=== PATIENT | female | born 1950 | race Caucasian/White ===

== ENCOUNTER 2016-12-15 10:31 | Emergency (ER) | payer OTHER ==
[~2016-12-15] VITALS: Ht 149.9 cm; Wt 83.0 kg
[~2016-12-15 10:31] MED LIST: CALCTAB98 PO; ECHI167T PO; MSM750CA OR; POTA99TA12 PO; TAB-TAB PO; ZITH250T PO
[2016-12-15 10:39] VITALS: BP 155/78; PULSE 94; RESP 16; TEMP 98.4; O2SAT 96
[2016-12-15] MEDS ORDERED: FURO20TA PO (11:16)
[2016-12-15] MEDS ORDERED: METR250 PO (11:16)
--- NOTE | 2016-12-15 11:49 | RADHPO ---
EXAM DATE/TIME: 12/15/2016 11:34 [facility] COMPARISON: No previous studies available for comparison. INDICATIONS : Cough and right side rib pain MEDICAL HISTORY : None. SURGICAL HISTORY : None. ENCOUNTER: Initial ACUITY: 3 weeks PAIN SCORE: 10/10 LOCATION: Right anterior lateral ribs FINDINGS: The cardiac silhouette is enlarged in transverse diameter. The lungs are free of acute parenchymal op acity. No effusions are identified. Osseous structures are intact. CONCLUSION: Cardiomegaly. No acute cardiopulmonary disease. Tanner Steele MD on December 15, 2016 at 11:48 Board Certified Radiologist. This report was verified electronically.
--- NOTE | 2016-12-15 11:52 | PD ---
HPI Chief Complaint: Musculoskeletal Complaint Time Seen by Provider: 11:15 Travel History International Travel<30 days: No Contact w/Intl Traveler<30days: No Traveled to known affect area: No History of Present Illness HPI Patient is a 66-year-old female who presents emergency department for evaluation of right rib pain. Patient states she's been coughing for a few weeks, last night she coughed and had increased pain in the right anterior ribs. She reports a history of chronic bronchitis, she uses a an albuterol inhaler as needed. She is not on any inhaled steroids. She denies any fevers or chills, nausea, vomiting, chest pain, shortness of breath. She states the cough has gotten better but due to the pain she presented to the emergency for evaluation. Patient states the pain was a 7 out of 10 last night but feels somewhat better today. PFSH Past Medical History Arthritis: Yes Asthma: Yes (chronic bronchitis) Cardiovascular Problems: No Diabetes: Yes (STATES UNDER CONTROL) Patient Takes Glucophage: No Diminished Hearing: No Genitourinary: No Hepatitis: Yes (hepatitis C/cirrhosis) Reproductive: No Menopausal: Yes Social History Alcohol Use: No (DENIES) Tobacco Use: No (FORMER) Substance Use: No Allergies-Medications (Allergen,Severity, Reaction): Coded Allergies: No Known Allergies (Verified , 12/15/16) Reported Meds & Prescriptions Reported Meds & Active Scripts Active Reported Flagyl (Metronidazole) 250 Mg Tab 250 Mg PO TID Furosemide 20 Mg Tab 20 Mg PO DAILY Review of Systems Except as stated in HPI: all other systems reviewed are Neg General / Constitutional: No: Fever, Chills Cardiovascular: No: Chest Pain or Discomfort, Dyspnea on exertion Respiratory: Positive: Cough (improving), Pleuritic Pain, No: Shortness of Breath, Wheezing, Orthopnea Gastrointestinal: No: Abdominal Pain Physical Exam Narrative GENERAL: Obese, well-developed, alert elderly female. Resting comfortably in no acute distress. SKIN: Warm and dry. HEAD: Atraumatic. Normocephalic. EYES: Pupils equal and round. No scleral icterus. No injection or drainage. ENT: No nasal bleeding or discharge. Mucous membranes pink and moist. NECK: Trachea midline. No JVD. CARDIOVASCULAR: Regular rate and rhythm. No murmur appreciated. RESPIRATORY: No accessory muscle use. Clear to auscultation. Breath sounds equal bilaterally. GASTROINTESTINAL: Abdomen obese, soft, non-tender, nondistended. Hepatic and splenic margins not palpable. MUSCULOSKELETAL: No obvious deformities. No clubbing. No cyanosis. No edema. Mild tenderness to palpation on right anterior ribs, no crepitus noted to palpation. NEUROLOGICAL: Awake and alert. No obvious cranial nerve deficits. Motor grossly within normal limits. Normal speech. PSYCHIATRIC: Appropriate mood and affect; insight and judgment normal. Data Data Last Documented VS Vital Signs Date Time Temp Pulse Resp B/P Pulse Ox O2 Delivery O2 Flow Rate FiO2 12/15/16 10:39 98.4 94 16 155/78 96 Orders Chest, Pa & Lat (12/15/16 ) [facility] Medical Decision Making Medical Screen Exam Complete: Yes Emergency Medical Condition: Yes Interpretation(s) Vital Signs Date Time Temp Pulse Resp B/P Pulse Ox O2 Delivery O2 Flow Rate FiO2 12/15/16 10:39 98.4 94 16 155/78 96 Differential Diagnosis Fracture versus costochondritis versus muscle strain versus pneumonia versus other Narrative Course Patient is a 66-year-old female, former smoker who presents emergency for evaluation of right rib pain after a coughing spell last night. Patient reports the cough has gotten better. Patient's vital signs are stable, is well oxygenated on room air and afebrile. Chest x-ray ordered and pending. Chest x-ray is negative for acute cardiopulmonary disease, osseous structures are intact. Patient will be given a short course of pain medication. She states that she is unable to take ibuprofen/Aleve due to GI issues. She is also advised by her GI doctor to only take acetaminophen twice daily. She is encouraged to take acetaminophen as directed by her GI doctor for pain, she was given the pain medication for breakthrough pain. She is encouraged to try alternate heat and ice to affected area. She is encouraged to continue deep breathing. Patient was encouraged to follow-up with her primary doctor or return to emergency department for any new or worsening symptoms. Patient verbalized understanding of these instructions. Patient is stable for discharge. Diagnosis Primary Impression: Rib pain on right side Referrals: Primary Care Physician Patient Instructions: General Instructions Additional Instructions: Follow-up with your primary doctor Alternate heat and ice to affected area Take acetaminophen as needed and as directed by your GI doctor for pain You may take the tramadol for breakthrough pain, do not drive or operate heavy machinery while taking narcotic pain medications Return to emergency department for any new or worsening symptoms Med/Other Pt SpecificInfo: Prescription(s) given Scripts Tramadol 50 Mg Tab50 Mg PO Q6H PRN (PAIN) #10 TAB Ref 0 Prov:Roberto Carlos Queen MD 12/15/16 Disposition: 01 DISCHARGE HOME Condition: Stable JasonAlyssaZaramraj DOMINGO Dec 15, 2016 11:52
[2016-12-15] MEDS ORDERED: TRAM50TA PO (11:53)
== END 2016-12-15 12:26 | disposition home or self-care (01) ==
LOC: PHEFT 10:31
DX: R07.81 Pleurodynia (principal); R05 Cough; J45.909 Unspecified asthma, uncomplicated; E11.9 Type 2 diabetes mellitus without complications
CPT/HCPCS: 71020; 99283

== ENCOUNTER 2016-12-17 09:39 | Inpatient (IN) | payer OTHER, MEDICARE ==
[2016-12-17] VITALS (10 sets, daily range): BP systolic 140–173; BP diastolic 69–81; PULSE 90–107; RESP 16–20; TEMP 98–99.5; O2SAT 92–98
[~2016-12-17] VITALS: Ht 149.9 cm; Wt 84.8 kg
[~2016-12-17 09:39] MED LIST changes: -CALCTAB98 PO; -ECHI167T PO; +FURO20TA PO; +METR250 PO; -MSM750CA OR; -POTA99TA12 PO; -TAB-TAB PO; +TRAM50TA PO; -ZITH250T PO
[2016-12-17] MEDS ORDERED: SODIUM CHLOR 0.9% 1000 ML INJ 1,000 ML IV SCH (11:35)
--- NOTE | 2016-12-17 11:43 | PD ---
HPI Chief Complaint: Abdominal Pain Time Seen by Provider: 11:39 Travel History International Travel<30 days: No Contact w/Intl Traveler<30days: No Traveled to known affect area: No History of Present Illness HPI Patient comes in complaining of abdominal pain that began around 4:00 this morning. Patient states she noted that her abdomen was distended and firm. Patient has since noted improved however she still continues to have pain in her epigastric region. Patient has a history of cirrhosis as well as gallbladder issues but was told by her GI that she did not need her gallbladder out and had bacteria somewhere in her stomach and was prescribed Flagyl. Patient reports the last dose of Flagyl's today. Patient denies any fevers, nausea, vomiting, chest pain, or shortness of breath. PFSH Past Medical History Arthritis: Yes Asthma: Yes Cardiovascular Problems: No Diabetes: Yes Patient Takes Glucophage: No Diminished Hearing: No Genitourinary: No Hepatitis: Yes (hepatitis C/cirrhosis) Reproductive: No Respiratory: Yes (PLEURISY, ASTHMA, CHRONIC BRONCHITIS ) Tetanus Vaccination: > 5 Years Influenza Vaccination: No ?: Not Menopausal: Yes Past Surgical History Surgical History: No Previous Surgery Social History Alcohol Use: No Tobacco Use: No Substance Use: No Allergies-Medications (Allergen,Severity, Reaction): Coded Allergies: Shellfish (Verified Allergy, Intermediate, HIVES, 12/17/16) Reported Meds & Prescriptions Reported Meds & Active Scripts Active Reported Feosol (Ferrous Sulfate) 65 Mg Tab 65 Mg PO DAILY Potassium 99 Mg Tab 99 Mg PO DAILY Magnesium 250 Mg Tab 250 Mg PO BID Echinacea Unknown Strength Tab 2 Tab PO BID Glucosamine Chondroitin (Mevsosddiui-Gojycvnroqk-Njd C-) 1 Tab Tab 2 Tab PO DAILY Calcium Unknown Strength Tab 1 Tab PO BID Flagyl (Metronidazole) 250 Mg Tab 250 Mg PO TID Furosemide 20 Mg Tab 20 Mg PO DAILY Review of Systems Except as stated in HPI: all other systems reviewed are Neg Physical Exam Narrative GENERAL: Well-developed, overly nourished, in no acute distress, and non-ill appearing. SKIN: Warm and dry. HEAD: Atraumatic. Normocephalic. EYES: Pupils equal and round. EOMI. No scleral icterus. No injection or drainage. ENT: No nasal bleeding or discharge. Mucous membranes pink and moist. NECK: Trachea midline. No JVD. Supple. No nuclear rigidity. CARDIOVASCULAR: Regular rate and rhythm. No murmur appreciated. RESPIRATORY: No accessory muscle use. No respiratory distress. Clear to auscultation. Breath sounds equal bilaterally. GASTROINTESTINAL: Abdomen soft, tenderness epigastric, distended. Hepatic and splenic margins not palpable. Normal bowel sounds 4. No pulsatile mass. MUSCULOSKELETAL: No obvious deformities. No clubbing. No cyanosis. No edema. Full range of motion. NEUROLOGICAL: Awake and alert. No obvious cranial nerve deficits. Motor grossly within normal limits. Normal speech. PSYCHIATRIC: Appropriate mood and affect; insight and judgment normal. Data Data Last Documented VS Vital Signs Date Time Temp Pulse Resp B/P Pulse Ox O2 Delivery O2 Flow Rate FiO2 12/17/16 14:00 92 17 140/81 98 Room Air 12/17/16 09:41 98.0 Orders Complete Blood Count With Diff (12/17/16 11:35) Comprehensive Metabolic Panel (12/17/16 11:35) Lipase (12/17/16 11:35) Prothrombin Time / Inr (Pt) (12/17/16 11:35) Act Partial Throm Time (Ptt) (12/17/16 11:35) Urinalysis - C+S If Indicated (12/17/16 11:35) Iv Access Insert/Monitor (12/17/16 11:35) Ecg Monitoring (12/17/16 11:35) Oximetry (12/17/16 11:35) Ondansetron Inj (Zofran Inj) (12/17/16 11:45) Sodium Chlor 0.9% 1000 Ml Inj (Ns 1000 M (12/17/16 11:35) Sodium Chloride 0.9% Flush (Ns Flush) (12/17/16 11:45) Electrocardiogram (12/17/16 11:35) Ct Abd/Pel W Iv Contrast(Rout) (12/17/16 11:48) Morphine Inj (Morphine Inj) (12/17/16 12:00) Iohexol 350 Inj (Omnipaque 350 Inj) (12/17/16 13:27) Piperacil-Tazo 3.375 Gm Premix (Zosyn 3. (12/17/16 14:45) Admit Order (Ed Use Only) (12/17/16 15:29) Labs Laboratory Tests Test 12/17/16 11:40 White Blood Count 7.7 TH/MM3 Red Blood Count 4.41 MIL/MM3 Hemoglobin 12.6 GM/DL Hematocrit 39.1 % Mean Corpuscular Volume 88.6 FL Mean Corpuscular Hemoglobin 28.6 PG Mean Corpuscular Hemoglobin 32.3 % Concent Red Cell Distribution Width 16.4 % Platelet Count 110 TH/MM3 Mean Platelet Volume 12.5 FL Neutrophils (%) (Auto) 83.2 % Lymphocytes (%) (Auto) 6.1 % Monocytes (%) (Auto) 8.5 % Eosinophils (%) (Auto) 0.8 % Basophils (%) (Auto) 1.4 % Neutrophils # (Auto) 6.4 TH/MM3 Lymphocytes # (Auto) 0.5 TH/MM3 Monocytes # (Auto) 0.7 TH/MM3 Eosinophils # (Auto) 0.1 TH/MM3 Basophils # (Auto) 0.1 TH/MM3 CBC Comment AUTO DIFF Differential Comment AUTO DIFF CONFIRMED Platelet Estimate LOW Platelet Morphology Comment ENLARGED Tear Drop Cells 1+ Ovalocytes 1+ Prothrombin Time 13.5 SEC Prothromb Time International 1.2 RATIO Ratio Activated Partial 31.5 SEC Thromboplast Time Urine Color Kelly Urine Turbidity CLEAR Urine pH 5.5 Urine Specific [place] 1.029 Urine Protein 30 mg/dL Urine Glucose (UA) 100 mg/dL Urine Ketones 15 mg/dL Urine Occult Blood NEG Urine Nitrite NEG Urine Bilirubin SMALL Urine Urobilinogen 0.2 MG/DL Urine Leukocyte Esterase NEG Urine Bacteria RARE /hpf Microscopic Urinalysis Comment CULT NOT INDICATED Sodium Level 139 MEQ/L Potassium Level 4.6 MEQ/L Chloride Level 106 MEQ/L Carbon Dioxide Level 23.7 MEQ/L Anion Gap 9 MEQ/L Blood Urea Nitrogen 16 MG/DL Creatinine 0.58 MG/DL Estimat Glomerular Filtration 104 ML/MIN Rate Random Glucose 117 MG/DL Calcium Level 9.8 MG/DL Total Bilirubin 0.8 MG/DL Aspartate Amino Transf 344 U/L (AST/SGOT) Alanine Aminotransferase 61 U/L (ALT/SGPT) Alkaline Phosphatase 173 U/L Total Protein 6.8 GM/DL Albumin 2.9 GM/DL Lipase 126 U/L [facility] Medical Decision Making Medical Screen Exam Complete: Yes Emergency Medical Condition: Yes Interpretation(s) EKG reviewed by Dr. Brian, shows sinus rhythm ventricular rate 92. No STEMI. Differential Diagnosis Diverticulitis, pancreatitis, appendicitis, small bowel obstruction, gastroparesis, constipation, obstipation, other Narrative Course Patient was seen and examined. Initial laboratory and radiological studies were ordered. Discussed patient with Dr. Brian, who saw and evaluated the patient and recommends having patient admitted for concern over possible SBP. All findings plan care was discussed with patient by Dr. Brian. Patient is agreeable for admission. All questions were answered. Physician Communication Physician Communication [address] Black, who wants to wait GIs input prior to accepting admission. [address] Espino GI who is on-call for patient's auto roller, who recommended unless there is concerns for SBP patient can be evaluated further as an outpatient. [address] Black again, who is agreeable to admit patient. Diagnosis Primary Impression: SBP (spontaneous bacterial peritonitis) Additional Impressions: Hepatocellular carcinoma Portal vein thrombosis Admitting Information Admitting Physician Requests: Observation Condition: Stable Canelo Mei Dec 17, 2016 11:43
[2016-12-17] MEDS ORDERED: SODIUM CHLORIDE 0.9% FLUSH 5 ML FLUSH IVF PRN (11:45)
[2016-12-17] MEDS ORDERED: ONDANSETRON HCL 4 MG/2 ML VIAL IVP ONE (11:45)
[2016-12-17 11:56] LABS: AUTOMATED NEUTROPHIL # 6.4 TH/MM3 (1.8-7.7); BASOPHIL # 0.1 TH/MM3 (0-0.2); BASOPHIL % 1.4 % (0.0-2.0); EOSINOPHIL # 0.1 TH/MM3 (0-0.4); EOSINOPHIL % 0.8 % (0.0-4.0); HEMATOCRIT 39.1 % (35.0-46.0); LYMPH % 6.1 % (9.0-44.0); LYMPHOCYTE # 0.5 TH/MM3 (1.0-4.8); MEAN CELL VOLUME 88.6 FL (80.0-100.0); MEAN CORPUSCULAR HEMOGLOBIN 28.6 PG (27.0-34.0); MEAN CORPUSCULAR HGB CONC 32.3 % (32.0-36.0); MONO % 8.5 % (0.0-8.0); NEUT % 83.2 % (16.0-70.0); PLATELET COUNT 110 TH/MM3 (150-450); RED BLOOD COUNT 4.41 MIL/MM3 (4.00-5.30); RED CELL DISTRIBUTION WIDTH 16.4 % (11.6-17.2); WHITE BLOOD COUNT 7.7 TH/MM3 (4.0-11.0)
[2016-12-17] MEDS ORDERED: MORPHINE SULFATE 4 MG/ML INJ IV PUSH ONE (12:00)
[2016-12-17 12:02] LABS: HEMO FLAGS AUTO DIFF
[2016-12-17 12:09] LABS: PROTHROMBIN TIME - PATIENT 13.5 SEC (9.8-11.6)
[2016-12-17 12:11] LABS: APTT (PATIENT) 31.5 SEC (24.3-30.1); INTERNATIONAL NORMALIZED RATIO 1.2 RATIO
[2016-12-17 12:15] LABS: BLOOD, URINE NEG (NEG); GLUCOSE,URINE 100 mg/dL (NEG); KETONE, URINE 15 mg/dL (NEG); NITRITE,URINE NEG (NEG); PH, URINE 5.5 (5.0-8.5); URINE COLOR Amber (YELLW/STRAW)
[2016-12-17 12:23] LABS: BACTERIA, URINE RARE /hpf; COMMENT (UR) CULT NOT INDICATED; CULTURE IF INDICATED CULT NOT INDICATED
[2016-12-17] MEDS ORDERED: GLUCTAB6 PO (12:23)
[2016-12-17] MEDS ORDERED: ECHI125T PO (12:23)
[2016-12-17] MEDS ORDERED: MAGN250T2 PO (12:23)
[2016-12-17] MEDS ORDERED: POTA99TA PO (12:23)
[2016-12-17] MEDS ORDERED: CALC500T42 PO (12:23)
[2016-12-17] MEDS ORDERED: FERR65TA PO (12:23)
[2016-12-17 12:26] LABS: ALT (GPT) 61 U/L (10-53); ANION GAP 9 MEQ/L (5-15); AST (GOT) 344 U/L (15-37); BICARBONATE 23.7 MEQ/L (21.0-32.0); BLOOD UREA NITROGEN 16 MG/DL (7-18); CHLORIDE 106 MEQ/L (98-107); GLOMERULAR FILTRATION RATE 104 ML/MIN (>89); SODIUM (NA) 139 MEQ/L (136-145)
[2016-12-17 12:28] LABS: ALKALINE PHOSPHATASE 173 U/L (45-117); POTASSIUM 4.6 MEQ/L (3.5-5.1); TOTAL BILIRUBIN ADULT 0.8 MG/DL (0.2-1.0)
[2016-12-17 12:49] LABS: OVALOCYTES 1+ (NORMAL)
[2016-12-17 12:50] LABS: PLATELET ESTIMATE SMEAR LOW (NORMAL); PLATELET MORPHOLOGY ENLARGED (NORMAL); SCAN/DIFF AUTO DIFF CONFIRMED; TEARDROP RBCS 1+ (NORMAL)
[2016-12-17] MEDS ORDERED: IOHEXOL 350 MG/ML 10 ML VIAL (for RAD DIAG) IV ONE (13:27)
--- NOTE | 2016-12-17 14:19 | RADRPT ---
EXAM DATE/TIME: 12/17/2016 13:20 [facility] COMPARISON: No previous studies available for comparison. INDICATIONS : Diffuse abdomen pain. IV CONTRAST: 86 cc Omnipaque 350 (iohexol) IV ORAL CONTRAST: No oral contrast ingested. RADIATION DOSE: 22.35 CTDIvol (mGy) MEDICAL HISTORY : Diabetes mellitus type 2. Hepatitis C. Cirrhosis. SURGICAL HISTORY : None. ENCOUNTER: Initial ACUITY: 1 day PAIN SCALE: 5/10 LOCATION: abdomen TECHNIQUE: Volumetric scanning of the abdomen and pelvis was performed. Using automated exposure control and ad justment of the mA and/or kV according to patient size, radiation dose was kept as low as reasonably achievable to obtain optimal diagnostic quality images. FINDINGS: LOWER LUNGS: There are innumerable small nodules at the lung bases bilaterally. LIVER: Liver is enlarged and nodular indicating cirrhosis. It enhances and heterogeneously particularly in t he right lobe. There is thrombus within the right portal vein and anterior and posterior branches. Th ere is an exophytic mass arising from the right lobe of the liver measuring 6.0 x 3.6 cm. Calcified s tone is present within the gallbladder. SPLEEN: The spleen is enlarged. PANCREAS: Within normal limits. KIDNEYS: Normal in size and shape. There is no mass, stone or hydronephrosis. ADRENAL GLANDS: Right adrenal gland is not visualized. VASCULAR: There is no aortic aneurysm. There is mild atherosclerotic disease. Paraesophageal varices are presen t. BOWEL/MESENTERY: The stomach, small bowel, and colon demonstrate no acute abnormality. There is no free intraperitone al air. There is a moderate volume of free fluid in the abdomen and pelvis. ABDOMINAL WALL: Within normal limits. RETROPERITONEUM: There is no lymphadenopathy. BLADDER: No wall thickening or mass. REPRODUCTIVE: There is a 2 cm hypodense mass in the left uterine fundus. INGUINAL: There is no lymphadenopathy or hernia. MUSCULOSKELETAL: No lytic or blastic lesion is seen. There are degenerative changes of the spine. CONCLUSION: 1. Cirrhotic liver with right lobe liver mass suspicious for hepatocellular carcinoma. There is diffu se heterogeneous enhancement of the right lobe with thrombus in the right portal vein.2. There are in numerable pulmonary nodules in the lung bases suspicious for metastatic disease. 3. Moderate volume of the free fluid in the abdomen and pelvis. Other findings suggesting portal hype rtension including splenomegaly and esophageal varices. 4. Nonacute findings include cholelithiasis and 2 cm left uterine mass likely representing a leiomyom a. Rahul Gan MD on December 17, 2016 at 14:10 Board Certified Radiologist. This report was verified electronically.
[2016-12-17] MEDS ORDERED: PIPERACIL-TAZO 3.375 GM PREMIX 50 ML IV ONE (14:45)
[2016-12-17] MEDS ORDERED: DEXTROSE 50% IN WATER 50 ML VIAL(D50) IV PUSH PRN (16:15)
[2016-12-17] MEDS ORDERED: GLUCAGON 1 MG/ML VIAL OTHER PRN (16:15)
[2016-12-17] MEDS ORDERED: BISACODYL 10 MG SUPP PR PRN (16:15)
[2016-12-17] MEDS ORDERED: traMADol HCL 50 MG TAB PO PRN (16:15)
[2016-12-17] MEDS ORDERED: SENNOSIDES 8.6 MG TAB PO PRN (16:15)
[2016-12-17] MEDS ORDERED: MORPHINE SULFATE 4 MG/ML INJ IV PRN (16:15)
[2016-12-17] MEDS ORDERED: NALOXONE HCL 0.4 MG/ML AMP IV PRN (16:15)
[2016-12-17] MEDS ORDERED: ONDANSETRON HCL 4 MG/2 ML VIAL IVP PRN (16:15)
[2016-12-17] MEDS ORDERED: SODIUM CHLORIDE 0.9% FLUSH 5 ML FLUSH FLUSH PRN (16:15)
[2016-12-17] MEDS ORDERED: MAGNESIUM HYDROXIDE SUSP 30 ML CUP PO PRN (16:15)
--- NOTE | 2016-12-17 16:22 | HHI.HP ---
[facility] Geovanni Munoz M.D. Admission Diagnosis abdominal pain, ascites Diagnoses: Chief Complaint: Abdominal pain Travel History International Travel<30 Days: No Contact w/Intl Traveler <30 Da: No Traveled to Known Affected Are: No History of Present Illness 66-year-old female with a past medical history of hepatitis C, cirrhosis, thrombocytopenia who presented for abdominal pain. The patient states that she was woken up this morning with severe abdominal pain. She states that she's been having right-sided abdominal discomfort, worse in the right lower quadrant for the past 3 or 4 weeks. Today the pain was worse in the midepigastric region. He states that she saw her PCP, had a liver sonogram done, which showed cholelithiasis, which is chronic for the patient. She followed up with her longitudinal float operator, who started her on Flagyl for possible infection, started last Sunday. She's been having associated gas, distention, nausea, diarrhea. Had 10 episodes of loose stools earlier today. She denies any vomiting. Has been having decreased oral intake as food seems to make the pain worse, has been trying a bland diet. She denies any fevers or chills. Her abdominal pain has been intermittent, and currently is resolved. Her longitudinal float operator is Dr. Youngblood. She follows with Dr. Ogden for thrombocytopenia. The patient had new liver mass found in the ED. Gastroenterology was consulted, and recommended admission if concern for SBP, and thus the patient was admitted to medicine. Review of Systems Other 10 point review of systems performed and was negative except as stated in the history of present illness Past Family Social History Past Medical History Hepatitis C, cirrhosis, thrombocytopenia History of diabetes mellitus, patient denies any currently History arthritis Asthma Migraines Chronic bronchitis Past Surgical History None Reported Medications Feosol (Ferrous Sulfate) 65 Mg Tab 65 Mg PO DAILY Potassium 99 Mg Tab 99 Mg PO DAILY Magnesium 250 Mg Tab 250 Mg PO BID Echinacea Unknown Strength Tab 2 Tab PO BID Glucosamine Chondroitin (Kobwaofzure-Stoaiduttni-Vtp C-) 1 Tab Tab 2 Tab PO DAILY Calcium Unknown Strength Tab 1 Tab PO BID Flagyl (Metronidazole) 250 Mg Tab 250 Mg PO TID Furosemide 20 Mg Tab 20 Mg PO DAILY Allergies: Coded Allergies: Shellfish (Verified Allergy, Intermediate, HIVES, 12/17/16) Active Ordered Medications Current Medications Medications (Trade) Dose Ordered Sig/Jason Route Start Time Stop Time Status Last Admin (NS Flush) 2 ml UNSCH PRN IVF 12/17/16 11:45 Family History Sr. of kidney cancer Social History Former alcohol abuse, none currently Former tobacco use Physical Exam Vital Signs Vital Signs Date Time Temp Pulse Resp B/P Pulse Ox O2 Delivery O2 Flow Rate FiO2 12/17/16 14:00 92 17 140/81 98 Room Air 12/17/16 12:09 97 Room Air 12/17/16 12:00 90 17 147/73 96 Room Air 12/17/16 11:31 95 20 148/74 98 Room Air 12/17/16 09:41 98.0 107 17 173/79 95 Physical Exam GENERAL: Well-developed well-nourished. In no acute distress. SKIN: Warm and dry. No lesions noted. HEENT: Normocephalic. Pupils equal and round. Mucous membranes pink and moist. CARDIOVASCULAR: Regular rate and rhythm. Soft systolic murmur appreciated at the LSB. RESPIRATORY: No accessory muscle use. Clear to auscultation. Breath sounds equal bilaterally. GASTROINTESTINAL: Abdomen soft, non-tender, nondistended. Bowel sounds x4. MUSCULOSKELETAL: No obvious deformities. No clubbing or cyanosis. Trace edema. NEUROLOGICAL: Awake and alert. No focal neurological deficits. Moves upper and lower extremities spontaneously. Normal speech. PSYCHIATRIC: Appropriate mood and affect; insight and judgment normal. Laboratory Laboratory Tests Test 12/17/16 11:40 White Blood Count 7.7 Red Blood Count 4.41 Hemoglobin 12.6 Hematocrit 39.1 Mean Corpuscular Volume 88.6 Mean Corpuscular Hemoglobin 28.6 Mean Corpuscular Hemoglobin 32.3 Concent Red Cell Distribution Width 16.4 Platelet Count 110 Mean Platelet Volume 12.5 Neutrophils (%) (Auto) 83.2 Lymphocytes (%) (Auto) 6.1 Monocytes (%) (Auto) 8.5 Eosinophils (%) (Auto) 0.8 Basophils (%) (Auto) 1.4 Neutrophils # (Auto) 6.4 Lymphocytes # (Auto) 0.5 Monocytes # (Auto) 0.7 Eosinophils # (Auto) 0.1 Basophils # (Auto) 0.1 CBC Comment AUTO DIFF Differential Comment AUTO DIFF CONFIRMED Platelet Estimate LOW Platelet Morphology Comment ENLARGED Tear Drop Cells 1+ Ovalocytes 1+ Prothrombin Time 13.5 Prothromb Time International 1.2 Ratio Activated Partial 31.5 Thromboplast Time Urine Color Kelly Urine Turbidity CLEAR Urine pH 5.5 Urine Specific [place] 1.029 Urine Protein 30 Urine Glucose (UA) 100 Urine Ketones 15 Urine Occult Blood NEG Urine Nitrite NEG Urine Bilirubin SMALL Urine Urobilinogen 0.2 Urine Leukocyte Esterase NEG Urine Bacteria RARE Microscopic Urinalysis Comment CULT NOT INDICATED Sodium Level 139 Potassium Level 4.6 Chloride Level 106 Carbon Dioxide Level 23.7 Anion Gap 9 Blood Urea Nitrogen 16 Creatinine 0.58 Estimat Glomerular Filtration 104 Rate Random Glucose 117 Calcium Level 9.8 Total Bilirubin 0.8 Aspartate Amino Transf 344 (AST/SGOT) Alanine Aminotransferase 61 (ALT/SGPT) Alkaline Phosphatase 173 Total Protein 6.8 Albumin 2.9 Lipase 126 Result Diagram: 12/17/16 1140 12/17/16 1140 Imaging Last Impressions Abdomen/Pelvis CT 12/17/16 1148 Signed Impressions: Service Date/Time: Saturday, December 17, 2016 13:20 - CONCLUSION: 1. Cirrhotic liver with right lobe liver mass suspicious for hepatocellular carcinoma. There is diffuse heterogeneous enhancement of the right lobe with thrombus in the right portal vein. 2. There are innumerable pulmonary nodules in the lung bases suspicious for metastatic disease. 3. Moderate volume of the free fluid in the abdomen and pelvis. Other findings suggesting portal hypertension including splenomegaly and esophageal varices. 4. Nonacute findings include cholelithiasis and 2 cm left uterine mass likely representing a leiomyoma. Rahul Gan MD Assessment and Plan Problem List: (1) Abdominal pain ICD Code: R10.9 Status: Acute Assessment and Plan 66-year-old female with a past medical history of hepatitis C, cirrhosis, thrombocytopenia who presented for abdominal pain Abdominal pain: Imaging reviewed: CT abdomen and pelvis with cirrhotic liver with right lobe liver mass suspicious for hepatocellular carcinoma, right portal vein thrombus; innumerable pulmonary nodules in the lung bases suspicious for metastatic disease; moderate volume of free fluid in the abdomen and pelvis; splenomegaly and esophageal varices; cholelithiasis; left uterine leiomyoma. Afebrile with no leukocytosis. Abdomen soft and nontender on exam. No current abdominal complaints. S/P IV Zosyn in the ED. No signs of SBP at this time. Consult patient's longitudinal float operator. Check paracentesis with cytology. Pain control with tramadol as needed. Check C. difficile. Lactinex. Protonix. AFP. Continue Flagyl. Liver and lung masses/ portal vein thrombus: See imaging as above. Consult patient's oncologist, Dr. Ogden, in the a.m. Hepatitis C/cirrhosis/thrombocytopenia: Chronic. Continue furosemide and ferrous sulfate. Hyperglycemia: Past history of diabetes mellitus, on no meds currently. Random glucose 117. Check hemoglobin A1c. SSI with Accu-Cheks. DVT prophylaxis: SCDs Written by Keith Doe, acting as scribe for Dr. Black on 12/17/16 at 16:21. The documentation accurately reflects the work performed [id number] by me on at 1621 Code Status Full code Discussed Condition With Patient, ED PA Problem Qualifiers (1) Abdominal pain: Qualified Code: R10.9 - Abdominal pain, unspecified location Keith Doe Dec 17, 2016 16:22 Farooq Black MD Dec 18, 2016 04:51
--- NOTE | 2016-12-17 17:09 | PD ---
Physical Exam Narrative GENERAL: Well-nourished, well-developed patient. SKIN: Warm and dry. HEAD: Normocephalic and atraumatic. EYES: No injection or drainage. ENT: No nasal drainage noted. NECK: Supple, trachea midline. CARDIOVASCULAR: Regular rate and rhythm RESPIRATORY: No increased effort. No accessory muscle use. GASTROINTESTINAL: Abdomen soft, diffusely tender, moderate distention EXTREMITIES: No edema. NEUROLOGICAL: Awake and alert. Motor and sensory grossly within normal limits. Normal speech. Data Data Last Documented VS Vital Signs Date Time Temp Pulse Resp B/P Pulse Ox O2 Delivery O2 Flow Rate FiO2 12/17/16 14:00 92 17 140/81 98 Room Air 12/17/16 09:41 98.0 Orders Complete Blood Count With Diff (12/17/16 11:35) Comprehensive Metabolic Panel (12/17/16 11:35) Lipase (12/17/16 11:35) Prothrombin Time / Inr (Pt) (12/17/16 11:35) Act Partial Throm Time (Ptt) (12/17/16 11:35) Urinalysis - C+S If Indicated (12/17/16 11:35) Iv Access Insert/Monitor (12/17/16 11:35) Ecg Monitoring (12/17/16 11:35) Oximetry (12/17/16 11:35) Ondansetron Inj (Zofran Inj) (12/17/16 11:45) Sodium Chlor 0.9% 1000 Ml Inj (Ns 1000 M (12/17/16 11:35) Sodium Chloride 0.9% Flush (Ns Flush) (12/17/16 11:45) Electrocardiogram (12/17/16 11:35) Ct Abd/Pel W Iv Contrast(Rout) (12/17/16 11:48) Morphine Inj (Morphine Inj) (12/17/16 12:00) Iohexol 350 Inj (Omnipaque 350 Inj) (12/17/16 13:27) Piperacil-Tazo 3.375 Gm Premix (Zosyn 3. (12/17/16 14:45) Admit Order (Ed Use Only) (12/17/16 15:29) Labs Laboratory Tests Test 12/17/16 11:40 White Blood Count 7.7 TH/MM3 Red Blood Count 4.41 MIL/MM3 Hemoglobin 12.6 GM/DL Hematocrit 39.1 % Mean Corpuscular Volume 88.6 FL Mean Corpuscular Hemoglobin 28.6 PG Mean Corpuscular Hemoglobin 32.3 % Concent Red Cell Distribution Width 16.4 % Platelet Count 110 TH/MM3 Mean Platelet Volume 12.5 FL Neutrophils (%) (Auto) 83.2 % Lymphocytes (%) (Auto) 6.1 % Monocytes (%) (Auto) 8.5 % Eosinophils (%) (Auto) 0.8 % Basophils (%) (Auto) 1.4 % Neutrophils # (Auto) 6.4 TH/MM3 Lymphocytes # (Auto) 0.5 TH/MM3 Monocytes # (Auto) 0.7 TH/MM3 Eosinophils # (Auto) 0.1 TH/MM3 Basophils # (Auto) 0.1 TH/MM3 CBC Comment AUTO DIFF Differential Comment AUTO DIFF CONFIRMED Platelet Estimate LOW Platelet Morphology Comment ENLARGED Tear Drop Cells 1+ Ovalocytes 1+ Prothrombin Time 13.5 SEC Prothromb Time International 1.2 RATIO Ratio Activated Partial 31.5 SEC Thromboplast Time Urine Color Kelly Urine Turbidity CLEAR Urine pH 5.5 Urine Specific [place] 1.029 Urine Protein 30 mg/dL Urine Glucose (UA) 100 mg/dL Urine Ketones 15 mg/dL Urine Occult Blood NEG Urine Nitrite NEG Urine Bilirubin SMALL Urine Urobilinogen 0.2 MG/DL Urine Leukocyte Esterase NEG Urine Bacteria RARE /hpf Microscopic Urinalysis Comment CULT NOT INDICATED Sodium Level 139 MEQ/L Potassium Level 4.6 MEQ/L Chloride Level 106 MEQ/L Carbon Dioxide Level 23.7 MEQ/L Anion Gap 9 MEQ/L Blood Urea Nitrogen 16 MG/DL Creatinine 0.58 MG/DL Estimat Glomerular Filtration 104 ML/MIN Rate Random Glucose 117 MG/DL Calcium Level 9.8 MG/DL Total Bilirubin 0.8 MG/DL Aspartate Amino Transf 344 U/L (AST/SGOT) Alanine Aminotransferase 61 U/L (ALT/SGPT) Alkaline Phosphatase 173 U/L Total Protein 6.8 GM/DL Albumin 2.9 GM/DL Lipase 126 U/L [facility] Supervised Visit with RUPAL: Yes Interpretation(s) CBC & BMP Diagram 12/17/16 11:40 Last 24 hours Impressions Abdomen/Pelvis CT 12/17/16 1148 Signed Impressions: Service Date/Time: Saturday, December 17, 2016 13:20 - CONCLUSION: 1. Cirrhotic liver with right lobe liver mass suspicious for hepatocellular carcinoma. There is diffuse heterogeneous enhancement of the right lobe with thrombus in the right portal vein. 2. There are innumerable pulmonary nodules in the lung bases suspicious for metastatic disease. 3. Moderate volume of the free fluid in the abdomen and pelvis. Other findings suggesting portal hypertension including splenomegaly and esophageal varices. 4. Nonacute findings include cholelithiasis and 2 cm left uterine mass likely representing a leiomyoma. Rahul Gan MD Narrative Course I, Dr. greco, have reviewed the advance practice practitioner's documentation and am in agreement, met with the patient face to face, made the diagnosis, and the medical decision making was done by me. *My assessment and Findings: 66-year-old female presents on Flagyl as an outpatient for possible bacterial infection and her GI doctor wanting to do blood work and CAT scan but she was feeling too ill to have that done as an outpatient. Limited bedside ultrasound shows only small amount of ascites that I cannot drain and she has diffuse tenderness. CT showed new likely metastatic liver cancer but given pain and ascites that I cannot safely get a bedside sample will give 1 dose of Zosyn and she will be watched in the hospital overnight Diagnosis Primary Impression: SBP (spontaneous bacterial peritonitis) Additional Impressions: Hepatocellular carcinoma Portal vein thrombosis Admitting Information Admitting Physician Requests: Observation Condition: Stable Naomy Greco MD Dec 17, 2016 17:08
[2016-12-17] MEDS: LACTOBACILLUS ACIDOPHILUS TAB PO SCH (18:00)
[2016-12-17] MEDS: metroNIDAZOLE 250 MG TAB PO SCH (18:00)
[2016-12-17] MEDS: INSULIN ASPART SUPPLEMENTAL SCALE SQ SCH (21:00)
[2016-12-17] MEDS: SODIUM CHLORIDE 0.9% FLUSH 5 ML FLUSH FLUSH SCH (21:39)
[2016-12-17 23:14] LABS: LDH SERUM 588 U/L (84-246)
[2016-12-18] VITALS (7 sets, daily range): BP systolic 128–151; BP diastolic 63–76; PULSE 72–103; RESP 18–21; TEMP 97.8–98.1; O2SAT 93–95
[2016-12-18] MEDS: traMADol HCL 50 MG TAB PO PRN ×2 (04:43→18:35)
[2016-12-18 05:16] LABS: AUTOMATED NEUTROPHIL # 5.1 TH/MM3 (1.8-7.7); BASOPHIL # 0.1 TH/MM3 (0-0.2); BASOPHIL % 1.1 % (0.0-2.0); EOSINOPHIL # 0.1 TH/MM3 (0-0.4); EOSINOPHIL % 1.6 % (0.0-4.0); HEMATOCRIT 36.7 % (35.0-46.0); LYMPHOCYTE # 0.5 TH/MM3 (1.0-4.8); MEAN CELL VOLUME 88.3 FL (80.0-100.0); MEAN CORPUSCULAR HEMOGLOBIN 28.8 PG (27.0-34.0); MEAN CORPUSCULAR HGB CONC 32.6 % (32.0-36.0); MONO % 11.2 % (0.0-8.0); NEUT % 78.1 % (16.0-70.0); PLATELET COUNT 98 TH/MM3 (150-450); RED BLOOD COUNT 4.15 MIL/MM3 (4.00-5.30); RED CELL DISTRIBUTION WIDTH 16.1 % (11.6-17.2); WHITE BLOOD COUNT 6.5 TH/MM3 (4.0-11.0)
[2016-12-18 05:34] LABS: HEMO FLAGS AUTO DIFF
[2016-12-18 05:41] LABS: BICARBONATE 25.9 MEQ/L (21.0-32.0); POTASSIUM 4.5 MEQ/L (3.5-5.1)
[2016-12-18] MEDS: INSULIN ASPART SUPPLEMENTAL SCALE SQ SCH ×4 (07:00→21:00)
[2016-12-18 08:32] LABS: KERATOCYTES OCC (NORMAL); OVALOCYTES 1+ (NORMAL); PLATELET ESTIMATE SMEAR LOW (NORMAL); PLATELET MORPHOLOGY ENLARGED (NORMAL); SCAN/DIFF AUTO DIFF CONFIRMED; TEARDROP RBCS 1+ (NORMAL)
--- NOTE | 2016-12-18 10:29 | HHI.PR ---
Subjective Remarks Follow-up for abdominal pain. The patient reports her abdominal pain is much improved overnight. She has had some loose stools. Discussed with Dr. Ogden and Dr. Espino. Objective Vitals Vital Signs Date Time Temp Pulse Resp B/P Pulse Ox O2 Delivery O2 Flow Rate FiO2 12/18/16 07:42 98.1 90 18 138/65 95 12/18/16 05:31 98.1 89 20 151/73 93 12/18/16 00:55 98.1 95 20 148/76 93 12/17/16 22:12 92 Nasal Cannula 2.00 12/17/16 21:24 95 12/17/16 20:35 99.5 92 16 147/69 92 12/17/16 18:00 94 20 161/72 98 12/17/16 16:18 92 19 167/74 98 Nasal Cannula 2 12/17/16 14:00 92 17 140/81 98 Room Air 12/17/16 12:09 97 Room Air 12/17/16 12:00 90 17 147/73 96 Room Air 12/17/16 11:31 95 20 148/74 98 Room Air Result Diagram: 12/18/16 0450 12/18/16 0450 Imaging Last Impressions Abdomen/Pelvis CT 12/17/16 1148 Signed Impressions: Service Date/Time: Saturday, December 17, 2016 13:20 - CONCLUSION: 1. Cirrhotic liver with right lobe liver mass suspicious for hepatocellular carcinoma. There is diffuse heterogeneous enhancement of the right lobe with thrombus in the right portal vein. 2. There are innumerable pulmonary nodules in the lung bases suspicious for metastatic disease. 3. Moderate volume of the free fluid in the abdomen and pelvis. Other findings suggesting portal hypertension including splenomegaly and esophageal varices. 4. Nonacute findings include cholelithiasis and 2 cm left uterine mass likely representing a leiomyoma. Rahul Gan MD Objective Remarks GENERAL: Well-developed well-nourished. In no acute distress. SKIN: Warm and dry. No lesions noted. HEENT: Normocephalic. Pupils equal and round. Mucous membranes pink and moist. CARDIOVASCULAR: Regular rate and rhythm. Soft systolic murmur appreciated at the LSB. RESPIRATORY: No accessory muscle use. Clear to auscultation. Breath sounds equal bilaterally. GASTROINTESTINAL: Abdomen soft, non-tender, nondistended. Bowel sounds x4. MUSCULOSKELETAL: No obvious deformities. No clubbing or cyanosis. Trace edema. NEUROLOGICAL: Awake and alert. No focal neurological deficits. Moves upper and lower extremities spontaneously. Normal speech. PSYCHIATRIC: Appropriate mood and affect; insight and judgment normal. A/P Problem List: (1) Abdominal pain ICD Code: R10.9 Status: Acute Assessment and Plan 66-year-old female with a past medical history of hepatitis C, cirrhosis, thrombocytopenia who presented for abdominal pain Abdominal pain: Imaging reviewed: CT abdomen and pelvis with cirrhotic liver with right lobe liver mass suspicious for hepatocellular carcinoma, right portal vein thrombus; innumerable pulmonary nodules in the lung bases suspicious for metastatic disease; moderate volume of free fluid in the abdomen and pelvis; splenomegaly and esophageal varices; cholelithiasis; left uterine leiomyoma. Afebrile with no leukocytosis. Abdomen soft and nontender on exam. No current abdominal complaints. S/P IV Zosyn in the ED. No signs of SBP at this time. Gastroenterology on board. Hold off on antibiotics at this time, discussed with GI, agreed pending paracentesis. Ordered paracentesis with cytology. Pain control with tramadol as needed. Check C. difficile. Lactinex. Protonix. AFP. Continue Flagyl. Liver and lung masses/ portal vein thrombus: See imaging as above. Consulted patient's oncologist, Dr. Ogden, appreciate input. Hepatitis C/cirrhosis/thrombocytopenia: Chronic. Continue furosemide and ferrous sulfate. Hyperglycemia: Past history of diabetes mellitus, on no meds currently. Random glucose 117, fasting 84. Hemoglobin A1c pending. SSI with Accu-Cheks. DVT prophylaxis: SCDs Written by Keith Doe, acting as scribe for Dr. Black on 12/18/16 at 10:28. The documentation accurately reflects the work performed [id number] by me on at 1028 Discharge Planning Disposition pending clinical course. Problem Qualifiers (1) Abdominal pain: Qualified Code: R10.9 - Abdominal pain, unspecified location Keith Doe Dec 18, 2016 10:29 Farooq Black MD Dec 18, 2016 16:33
[2016-12-18] MEDS: PANTOPRAZOLE SOD 40 MG DELAYED RELEASE TAB PO SCH (10:37)
[2016-12-18] MEDS: FUROSEMIDE 20 MG TAB PO SCH (10:37)
[2016-12-18] MEDS: FERROUS SULFATE 325 MG (65 MG ELEMENTAL IRON) TAB PO SCH (10:37)
[2016-12-18] MEDS: SODIUM CHLORIDE 0.9% FLUSH 5 ML FLUSH FLUSH SCH ×2 (10:37→21:24)
[2016-12-18] MEDS: metroNIDAZOLE 250 MG TAB PO SCH ×3 (10:37→18:34)
[2016-12-18] MEDS: LACTOBACILLUS ACIDOPHILUS TAB PO SCH ×3 (10:37→18:34)
--- NOTE | 2016-12-18 11:26 | MB ---
cc: NORBERTO MARTIN M.D. DATE OF CONSULTATION December 18, [address] Black REASON FOR CONSULTATION Oncology consulted to render opinion regarding patient with liver mass. HISTORY OF PRESENT ILLNESS The patient is a 66-year-old female with a history of hepatitis C and cirrhosis who presented with complaint of increased abdominal pain. She stated she had been having abdominal discomfort for several weeks. She went to see a nuclear fuel enrichment technician. Reportedly ultrasound did not show anything to explain the pain. She was given Flagyl last week. Over the last few days she has had increased upper abdominal pain and she came to the hospital. She had nausea without vomiting. She has had loose stools on and off for at least two weeks. She has increased abdominal girth. She denies any fevers. She has feeling of cold sometimes. Denies any weight loss. Denies any chest pressure or palpitations. Denies shortness of breath. She has a cough, occasionally bringing up some mucoid sputum. Denies hemoptysis. Denies any dysuria, hematuria, any bone pain, headache, focal numbness or weakness and bleeding or bruising. PAST MEDICAL HISTORY 1. Hepatitis C. 2. Cirrhosis. 3. Diabetes mellitus. 4. Hemorrhoid. 5. Osteoporosis. 6. Pneumonia. 7. Osteoarthritis. 8. Migraine headache. 9. Chronic bronchitis PAST SURGICAL HISTORY None. FAMILY HISTORY She has two daughters, both healthy. SOCIAL HISTORY She quit smoking about three years ago but smoked about half-a-pack a day for about 30 years. She also quit drinking alcohol but two years ago; she used to drink heavily. ALLERGIES SHELLFISH. MEDICATIONS 1. Protonix. 2. Ferrous sulfate. 3. Lasix. 4. Lactinex. 5. Flagyl. REVIEW OF SYSTEMS Constitutional: Denies any fever, chills, night sweats, weight loss. Eyes: Denies any blurry vision, double vision. ENT: Denies mouth sores or voice changes. Cardiovascular: No chest pressure or palpitation. Respiratory: Reports cough with milky sputum. Denies any symptoms of shortness of breath. GI: As above. : Denies any dysuria or hematuria. Musculoskeletal: No bone pain or muscle pain. Hematology: As above. Endocrine: Negative. Dermatology: Negative. Psychiatric: Negative. Neurologic: Negative. PHYSICAL EXAMINATION Vital signs: Temperature 98.1, blood pressure 138/65, O2 saturation 95% on 2 liters nasal cannula. General: She is alert and oriented x 3, in no acute distress. HEENT: Atraumatic, normocephalic. Pupils equal, round and reactive to light. Extraocular muscles intact. No scleral icterus. Oropharynx - moist mucosa. No lesion, no thrush, no mucositis. Neck: No thyromegaly. No palpable mass. Lymphatic: No palpable cervical, clavicular, axillary or inguinal lymph nodes. Cardiovascular: Regular S1 and S2. No murmur. Lungs: Clear to auscultation without any wheezing or rhonchi. Abdomen: Distended. Tender in the upper abdomen. No rebound. No rigidity. Positive bowel sounds. Could not palpate liver or spleen. Extremity Exam: No cyanosis, no clubbing. Trace ankle edema. No calf tenderness. Back: No paravertebral tenderness. Skin: No rash or petechia. Neurologic: Nonfocal. LABORATORY DATA Reviewed. ASSESSMENT 1. Liver mass in the setting of cirrhosis and elevated alpha-fetoprotein most consistent with hepatocellular carcinoma. She had a history of hepatitis C cirrhosis. She now presented with increased abdominal pain which has been going on for several weeks. CT of the abdomen and pelvis showed a cirrhotic liver with 6 x 3 cm right hepatic lobe mass. There was also evidence of thrombus in the right portal vein. There were innumerable pulmonary nodules. There was evidence of portal hypertension. Alpha-fetoprotein was 2896. This is hepatocellular carcinoma until proven otherwise. I am going to have her get a CT of the chest to see the extent of the metastatic disease. We will also get an MRI of the abdomen to further evaluate the liver. We will discuss with Radiology to see if biopsy is necessary. If she indeed has metastatic hepatocellular carcinoma, treatment will be palliative. With lung metastasis she will not be a candidate for a liver transplant. Treatment option would be Nexavar. I do not think she can have embolization due to the portal vein thrombosis. 2. 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 Platelet count is relatively stable at 98,000. She has no bleeding or bruising. 3. Abdominal pain. She is currently being worked up for possible SBP. 4. Diabetes mellitus. 5. Migraine. 6. Chronic bronchitis 7. Asthma. RECOMMENDATIONS 1. Reviewed CT and discussion with the patient. 2. Get MRI of the abdomen to further evaluate the liver. 3. Arrange for CT of the chest. 4. We will discuss with Radiology to see if a biopsy is necessary. Thank you Dr. Black for asking me to see this patient. MD MANUELA Mcmanus/ANSON /8:18 AM /11:08 AM MTDBryce
[2016-12-18] MEDS ORDERED: GADODIAMIDE PF 287 MG/ML 5 ML VIAL (for RAD MRI) IV ONE (11:31)
[2016-12-18 12:23] LABS: HEMOGLOBIN A1a 0.7 %; HEMOGLOBIN A1b 0.6 %; HEMOGLOBIN Ao 86.5 %; HEMOGLOBIN LA1C 1.3 %; HEMOGLOBIN P3 3.3 %
--- NOTE | 2016-12-18 12:23 | RADRPT ---
EXAM DATE/TIME: 12/17/2016 17:42 [facility] COMPARISON: No previous studies available for comparison. INDICATIONS : Ascites. MEDICAL HISTORY : Hepatitis C. Cirrhosis. Arthritis. Pleurisy. Asthma. Chronic bronchitis. Diabetes. Thrombocytopenia. SURGICAL HISTORY : None. ENCOUNTER: Initial ACUITY: 1 day PAIN SCORE: 1/10 LOCATION: Bilateral abdomen. AREA EVALUATED: Abdomen. FINDINGS: Imaging of the abdomen and pelvis was performed to evaluate for ascites for possible paracentesis. CONCLUSION: There is not enough ascites for safe paracentesis.. Lucien Fuentes MD FACR on December 18, 2016 at 12:21 Board Certified Radiologist. This report was verified electronically.
--- NOTE | 2016-12-18 15:43 | MB ---
cc: KATE BLACK MD, JUAN DATE OF CONSULTATION: 12/18/2016 DATE OF : 1950 REASON FOR CONSULTATION Possible liver mass. BRIEF MEDICAL HISTORY Ms. Merino is a pleasant 66-year-old lady with past medical history significant for chronic hepatitis C induced cirrhosis, asthma, migraines, arthritis, who presents to the hospital complaining of abdominal pain and diarrhea. She follows with Dr. Youngblood at our office for chronic management of hepatitis C and cirrhosis. She was seen recently at the office with complaints of abdominal pain and diarrhea for which she was prescribed metronidazole and was currently taking it. She had also been recommended to follow-up with a CT of the abdomen as well as plan for endoscopy and colonoscopy for work-up of her abdominal pain, but she had not completed this. She reports worsening right-sided abdominal discomfort and significant loose stools for the last few weeks. She does have a history of chronic cholelithiasis for which she has been managed with a low-fat diet. On admission she had a CT of the abdomen which showed an enlarged liver, nodular, indicating cirrhosis, as well as a thrombus within the right portal pain. There was an exophytic mass arising from the right lobe of the liver measuring 6 x 3.6 cm as well as calcified stones in the gallbladder. There was also a moderate amount of free fluid in the abdomen and pelvis. It was decided to admit the patient for work-up of the liver mass and rule out possible spontaneous bacterial peritonitis. At the time of interview, the patient was eating comfortably in the bed. She denied at the time any significant abdominal pain. PAST MEDICAL HISTORY 1. Chronic hepatitis C. 2. Cirrhosis of the liver. 3. Arthritis. 4. Asthma. 5. Migraines. 6. Chronic cholelithiasis. PAST SURGICAL HISTORY None. MEDICATIONS 1. Ferrous sulfate 65 mg p.o. daily. 2. Potassium and magnesium supplementation. 3. Glucosamine/chondroitin one tablet p.o. daily. 4. Flagyl 250 mg p.o. t.i.d. 5. Lasix 20 mg p.o. daily. 6. Calcium supplementation. FAMILY HISTORY No family history of colon cancer or liver disease. SOCIAL HISTORY She denies any tobacco, alcohol or illicit drug use. ALLERGIES She is allergic to SHELLFISH. REVIEW OF SYSTEMS Positive for abdominal pain and diarrhea, otherwise a 14-point review of systems was negative. PHYSICAL EXAMINATION VITAL SIGNS: Temperature 98.1, heart rate 90, respiratory rate 18, blood pressure 138/65. Satting 95% on room air. GENERAL: An overweight female in no acute distress, lying comfortably in bed. HEENT: Normocephalic, atraumatic. PERRLA. Anicteric sclera. Moist mucosa. NECK: Supple. No JVD. No lymphadenopathy. CARDIOVASCULAR: Regular rhythm and rate. S1, S2. No murmurs or gallops. PULMONARY: Clear to auscultation bilaterally. ABDOMEN: Obese, soft, mildly distended. Mildly tender on deep palpation in the periumbilical area. No hepatomegaly felt. Unclear to determine if she has ascites based on body habitus. Bowel sounds are present. EXTREMITIES: No cyanosis. No edema. +2 pulse bilaterally. NEUROLOGIC: She is alert and oriented x3. Cranial nerves intact. Strength 5/5 throughout. No focal deficits. LABORATORY STUDIES White blood cell count 6.5, hemoglobin 12, hematocrit 36.7, placement 98. Sodium 139, potassium 4.5, chloride 107, bicarb 25.9, creatinine 0.7. AST 344, ALT 61, alkaline phosphatase 173, albumin 2.9. INR is 1.2. IMAGING CT of the abdomen and pelvis with contrast showed a cirrhotic liver with a right lobe liver mass suspicious for hepatocellular carcinoma. Diffuse heterogeneous enhancement of the right lobe. Thrombus in the right portal vein. Innumerable pulmonary nodules in the lung bases suspicious for metastatic disease. Moderate volume of free fluid in the abdomen and pelvis. Splenomegaly and esophageal varices. Non-acute findings include cholelithiasis and a 2 cm uterine mass, likely a leiomyoma. ASSESSMENT Ms. Merino is a 66-year-old lady with a history of chronic hepatitis C induced cirrhosis, presenting with worsening abdominal pain and diarrhea. CT abdomen is showing concerns for a possible liver mass with metastatic disease in her lungs as well as moderate size free fluid in the abdomen or pelvis. PLAN 1. Abdominal pain/diarrhea. Based on presentation there is a concern for possible underlying SBP. An ultrasound-guided paracentesis has been ordered. Fluid will be sent for cell count and differential, Gram stain and culture, total protein, albumin and cytology. We will follow the results and depending on this determine the need of antibiotic treatment. Recommend albumin replacement if more than five liters of ascitic fluid is removed. We will send stool for testing and rule out possible infection. 2. Liver mass. CT abdomen showing evidence of exophytic mass in the right lobe concerning for hepatocellular carcinoma. Alpha-fetoprotein level is high which goes with a possible diagnosis of HCC. There is concern for metastatic pulmonary nodules. Hematology/oncology has been consulted and they already ordered an MRI of the abdomen and CT of the chest for evaluation. We will follow report. Would recommend against liver biopsy if radiological features of HCC are noted on MRI. 3. Hepatitis C induced cirrhosis. MELD score is 8. She is not a candidate for liver transplantation at this time. We will follow imaging to determine if she indeed has hepatocellular carcinoma. If it is metastatic she would not be a candidate for transplant. We will follow closely. She will need an upper endoscopy for esophageal varices screening. We can perform this during this hospitalization once imaging study is completed. There is no significant hepatic encephalopathy. We will monitor. 4. Ascites. There is a significant amount of free fluid in the abdomen as per her CT report. An ultrasound-guided paracentesis has been scheduled. We will follow ascitic fluid testing. She is on low-dose Lasix. We will determine if she has spontaneous bacterial peritonitis. If not, we will titrate diuretics up as tolerated to manage her ascites. Recommend a low-sodium diet. 5. Other medical problems to be addressed by the primary team. We would like to thank Dr. Black for this consultation and allowing us to participate in the care of Ms. Merino. We will follow along with you. Please call us with any questions or concerns. MD SHEREE Adler/CHARISSA /11:31 AM /3:13 PM [facility]
--- NOTE | 2016-12-18 16:24 | RADRPT ---
EXAM DATE/TIME: 12/18/2016 11:10 [facility] COMPARISON: CT ABDOMEN & PELVIS W CONTRAST, December 17, 2016, 13:20. INDICATIONS : Abdominal pain. Abnormal CT. CONTRAST: 15 cc Omniscan (gadodiamide) IV MEDICAL HISTORY : Hepatitis C. Cirrhosis. SURGICAL HISTORY : None. ENCOUNTER: Subsequent ACUITY: 2 day PAIN SCORE: 3/10 LOCATION: Abdomen TECHNIQUE: Multiplanar, multisequence magnetic resonance imaging of the abdomen was performed without and with i ntravenous contrast. FINDINGS: A large heterogeneous mass is seen arising from segment 7 of the liver. This mass is mixed signal on the T2-weighted sequence as well as on the T1 weighted sequences and shows heterogeneous enhancement following the contrast administration. There is extension of the tumor into an accessory hepatic vein which then extends inferiorly towards the confluence of the renal veins. There is a second smaller m ass involving the tip of the liver. This lesion measures 2.9 x 2.8 x 2.6 cm and has similar signal ch aracteristics. There is thrombosis of the right portal vein with some extension into the main portal vein. The left portal vein and majority of the main portal vein remain patent and there is ductal dil atation involving the right lobe of the liver. A small gallstone is noted within the gallbladder. Und erlying cirrhotic changes in liver with paraesophageal varices and recannulated periumbilical vein. S pleen is enlarged measuring 14.4 cm. The right adrenal gland is totally obscured by the exophytic hep atic mass. The left adrenal gland, kidneys, and pancreas are unremarkable. Small volume ascitic fluid noted. Tiny bilateral pleural effusions. CONCLUSION: 1. 2 hepatic masses involving the right lobe of the liver as detailed above with signal characteristi cs suggesting multifocal hepatocellular carcinoma in this patient with cirrhosis. There is tumor thro mbus extending into an accessory right hepatic vein and down the IVC slightly. There is complete thro mbosis of the right portal vein with some nonocclusive thrombus involving the main portal vein. Bilia ry dilatation involving the right hepatic lobe. 2. Cholelithiasis. 3. Splenomegaly. 4. Small volume ascites. 5. Tiny bilateral pleural effusions. Adam Byrne Jr., MD on December 18, 2016 at 15:25 Board Certified Radiologist. This report was verified electronically.
--- NOTE | 2016-12-18 17:23 | EKG ---
Date Performed: 12/17/2016 Time Performed: 12:38:35 PTAGE: 66 years EKG: Sinus rhythm WITH OCCASIONAL SUPRAVENTRICULAR PREMATURE COMPLEXES BORDERLINE LEFT AXIS DEVIATION LOW QRS VOLTAGE IN PRECORDIAL LEADS PATTERN CONSISTENT WITH PULMONARY DISEASE Compared to prior tracing no significan t change ABNORMAL ECG PREVIOUS TRACING : 10/31/2008 10.16 DOCTOR: Rocio Darby Interpretating Date/Time 12/18/2016 17:22:04
[2016-12-18] MEDS ORDERED: IOHEXOL 350 MG/ML 10 ML VIAL (for RAD DIAG) IV ONE (18:17)
--- NOTE | 2016-12-18 18:31 | RADRPT ---
EXAM DATE/TIME: 12/18/2016 18:02 [place] COMPARISON: No previous studies available for comparison. INDICATIONS : Evaluate for neoplasm. IV CONTRAST: 65 cc Omnipaque 350 (iohexol) IV RADIATION DOSE: 6.12 CTDIvol (mGy) MEDICAL HISTORY : Hepatitis C. diabetes SURGICAL HISTORY : None. ENCOUNTER: Initial ACUITY: 1 day PAIN SCALE: 0/10 LOCATION: Bilateral chest TECHNIQUE: Volumetric scanning of the chest was performed. Using automated exposure control and adjustment of t he mA and/or kV according to patient size, radiation dose was kept as low as reasonably achievable to obtain optimal diagnostic quality images. FINDINGS: No prior chest CT. There are multiple bilateral subcentimeter lung nodules most characteristic of met astatic disease. There is also some distal airway disease predominantly in the right upper lobe and a t both lung bases which could reflect post-aspiration changes or a mild chronic atypical mycobacteria l disease. There are filling defects in both pulmonary arteries especially the lower lobes characteristic of pul monary embolic disease. Upper abdomen reveals liver masses with liver cirrhosis and mild ascites. See recent CT and MRI repor t. CONCLUSION: 1. Multiple bilateral subcentimeter pulmonary nodules characteristic of pulmonary metastatic disease in patient with known liver masses. 2. Filling defects in both pulmonary arteries characteristic of pulmonary embolic disease. 3. Trace right pleural fluid. Mild ascites. Alfredo Rivas MD on December 18, 2016 at 18:24 Board Certified Radiologist. This report was verified electronically.
[2016-12-18] MEDS: HEPARIN-D5W INJ 250 ML IV SCH (21:27)
[2016-12-19] VITALS (7 sets, daily range): BP systolic 126–147; BP diastolic 61–74; PULSE 57–95; RESP 17–21; TEMP 97.8–98.8; O2SAT 92–98
[2016-12-19 00:13] LABS: APTT (PATIENT) 68.9 SEC (24.3-30.1); INTERNATIONAL NORMALIZED RATIO 1.3 RATIO; PROTHROMBIN TIME - PATIENT 14.5 SEC (9.8-11.6)
[2016-12-19 00:14] LABS: MEAN CORPUSCULAR HEMOGLOBIN 28.4 PG (27.0-34.0); MEAN CORPUSCULAR HGB CONC 32.3 % (32.0-36.0); PLATELET COUNT 78 TH/MM3 (150-450); RED BLOOD COUNT 3.86 MIL/MM3 (4.00-5.30); RED CELL DISTRIBUTION WIDTH 15.9 % (11.6-17.2); WHITE BLOOD COUNT 5.8 TH/MM3 (4.0-11.0)
[2016-12-19 00:19] LABS: REVIEW FLAG FINAL
[2016-12-19 04:12] LABS: C. DIFF EPI 027 PRESUMPTIVE NEGATIVE (NEGATIVE); C. DIFF TOXIN PCR NEGATIVE (NEGATIVE)
[2016-12-19 04:38] LABS: APTT (PATIENT) 90.3 SEC (24.3-30.1)
[2016-12-19] MEDS: INSULIN ASPART SUPPLEMENTAL SCALE SQ SCH ×4 (05:59→20:36)
[2016-12-19 06:27] LABS: APTT (PATIENT) 71.4 SEC (24.3-30.1)
[2016-12-19] MEDS: SODIUM CHLORIDE 0.9% FLUSH 5 ML FLUSH FLUSH SCH ×2 (09:00→20:36)
[2016-12-19] MEDS: LACTOBACILLUS ACIDOPHILUS TAB PO SCH ×3 (09:56→18:32)
[2016-12-19] MEDS: FUROSEMIDE 20 MG TAB PO SCH (09:56)
[2016-12-19] MEDS: metroNIDAZOLE 250 MG TAB PO SCH ×2 (09:56→13:35)
[2016-12-19] MEDS: PANTOPRAZOLE SOD 40 MG DELAYED RELEASE TAB PO SCH (09:56)
[2016-12-19] MEDS: FERROUS SULFATE 325 MG (65 MG ELEMENTAL IRON) TAB PO SCH (10:01)
[2016-12-19] MEDS: traMADol HCL 50 MG TAB PO PRN ×2 (10:01→20:42)
[2016-12-19] MEDS: DEXTROSE 5%-LACTATED RING INJ 1,000 ML IV SCH (10:27)
--- NOTE | 2016-12-19 10:47 | HHI.PR ---
Subjective Remarks Follow up for abdominal pain, hepatocellular carcinoma with mets, pulmonary embolism. The patient reports feeling fairly well today. Abdominal pain improved. She is tolerating her meals. She is concerned about discussing this with her family and is requesting any assistance we can provide; offered palliative care consult and patient is agreeable. Objective Vitals Vital Signs Date Time Temp Pulse Resp B/P Pulse Ox O2 Delivery O2 Flow Rate FiO2 12/19/16 07:47 98.3 89 17 126/61 94 12/19/16 03:53 97.8 86 18 141/67 92 12/19/16 01:15 98.7 57 18 132/68 97 12/18/16 23:22 88 12/18/16 20:35 16 12/18/16 19:12 97.8 103 21 136/63 94 12/18/16 13:20 98.0 88 18 128/76 94 I/O 12/18/16 12/18/16 12/18/16 12/19/16 12/19/16 12/19/16 07:00 15:00 23:00 07:00 15:00 23:00 Intake Total 240 ml Balance 240 ml Intake Oral 240 ml # Voids 2 # Bowel Movements 1 Result Diagram: 12/18/16 2347 12/18/16 0450 Imaging Last Impressions Chest CT 12/18/16 0000 Signed Impressions: Service Date/Time: Sunday, December 18, 2016 18:02 - CONCLUSION: 1. Multiple bilateral subcentimeter pulmonary nodules characteristic of pulmonary metastatic disease in patient with known liver masses. 2. Filling defects in both pulmonary arteries characteristic of pulmonary embolic disease. 3. Trace right pleural fluid. Mild ascites. Alfredo Rivas MD Abdomen Ultrasound 12/18/16 0000 Signed Impressions: Service Date/Time: Saturday, December 17, 2016 17:42 - CONCLUSION: There is not enough ascites for safe paracentesis.. Lucien Fuentes MD FACR Abdomen MRI 12/18/16 0000 Signed Impressions: Service Date/Time: Sunday, December 18, 2016 11:10 - CONCLUSION: 1. 2 hepatic masses involving the right lobe of the liver as detailed above with signal characteristics suggesting multifocal hepatocellular carcinoma in this patient with cirrhosis. There is tumor thrombus extending into an accessory right hepatic vein and down the IVC slightly. There is complete thrombosis of the right portal vein with some nonocclusive thrombus involving the main portal vein. Biliary dilatation involving the right hepatic lobe. 2. Cholelithiasis. 3. Splenomegaly. 4. Small volume ascites. 5. Tiny bilateral pleural effusions. Adam Byrne Jr., MD Abdomen/Pelvis CT 12/17/16 1148 Signed Impressions: Service Date/Time: Saturday, December 17, 2016 13:20 - CONCLUSION: 1. Cirrhotic liver with right lobe liver mass suspicious for hepatocellular carcinoma. There is diffuse heterogeneous enhancement of the right lobe with thrombus in the right portal vein. 2. There are innumerable pulmonary nodules in the lung bases suspicious for metastatic disease. 3. Moderate volume of the free fluid in the abdomen and pelvis. Other findings suggesting portal hypertension including splenomegaly and esophageal varices. 4. Nonacute findings include cholelithiasis and 2 cm left uterine mass likely representing a leiomyoma. Rahul Gan MD Objective Remarks GENERAL: Well-nourished, well-developed female patient in [facility]. SKIN: Warm and dry. No rash. HEAD: Normocephalic. Atraumatic. EYES: Pupils equal and round. No scleral icterus. No injection or drainage. ENT: No nasal bleeding or discharge. Mucous membranes pink and moist. NECK: Supple. Trachea midline. CARDIOVASCULAR: Regular rate and rhythm. S1, S2 noted. No murmur appreciated. RESPIRATORY: No accessory muscle use. Clear to auscultation. Breath sounds equal bilaterally. GASTROINTESTINAL: Abdomen soft, non-tender, nondistended. Normoactive bowel sounds x4. MUSCULOSKELETAL: No obvious deformities. Extremities without clubbing, cyanosis , or edema. NEUROLOGICAL: Awake and alert. No obvious cranial nerve deficits. Motor grossly within normal limits. Normal speech. PSYCHIATRIC: Appropriate mood and affect; insight and judgment normal. Medications and IVs Current Medications Medications (Trade) Dose Ordered Sig/Jason Route Start Time Stop Time Status Last Admin (D50w (Vial) Inj) 25 ml UNSCH PRN IV PUSH 12/17/16 16:15 (Glucagon Inj) 1 mg UNSCH PRN OTHER 12/17/16 16:15 (NS Flush) 2 ml UNSCH PRN FLUSH 12/17/16 16:15 (NS Flush) 2 ml BID FLUSH 12/17/16 21:00 12/18/16 21:24 (Zofran Inj) 4 mg Q6H PRN IVP 12/17/16 16:15 (Dulcolax Supp) 10 mg DAILY PRN [place] 12/17/16 16:15 (Milk Of Magnesia Liq) 30 ml Q12H PRN PO 12/17/16 16:15 (Senokot) 17.2 mg Q12H PRN PO 12/17/16 16:15 (Morphine Inj) 2 mg Q3H PRN IV 12/17/16 16:15 (Ultram) 50 mg Q4H PRN PO 12/17/16 16:15 12/17/16 21:40 (Ultram) 100 mg Q4H PRN PO 12/17/16 16:15 12/19/16 10:01 (Narcan Inj) 0.4 mg UNSCH PRN IV 12/17/16 16:15 (Protonix) 40 mg DAILY PO 12/18/16 09:00 12/19/16 09:56 (Lactinex) 1 tab TID PO 12/17/16 18:00 12/19/16 09:56 (Ferrous Sulfate) 325 mg DAILY PO 12/18/16 09:00 12/19/16 10:01 (Lasix) 20 mg DAILY PO 12/18/16 09:00 12/19/16 09:56 Metronidazole 250 mg 250 mg TID PO 12/17/16 18:00 12/19/16 17:59 12/19/16 09:56 Heparin Sodium/ Dextrose 250 ml @ 0 mls/hr TITRATE IV 12/18/16 20:45 12/18/16 21:27 Pharmacy Profile Note 0 ml @ 0 mls/hr UNSCH OTHER 12/19/16 09:30 (D5-Lr Inj) 1,000 ml @ 20 mls/hr Q24H IV 12/19/16 10:27 12/20/16 10:26 UNV (Colyte Liq) 2,000 ml Q8H PO 12/19/16 18:30 12/20/16 02:31 UNV Urinary Catheter: No Vascular Central Line Catheter: No A/P Problem List: (1) Abdominal pain ICD Code: R10.9 Status: Acute (2) Hepatocellular carcinoma ICD Code: C22.0 Status: Acute (3) Portal vein thrombosis ICD Code: I81 Status: Acute (4) Pulmonary emboli ICD Code: I26.99 Status: Acute Assessment and Plan 66-year-old female with a past medical history of hepatitis C, cirrhosis, thrombocytopenia who presented for abdominal pain Abdominal pain, new diagnosis of suspected Hepatocellular Carcinoma with Metastasis; Liver/Lung masses: -Imaging reviewed: CT abd/pelvis with cirrhotic liver with right lobe liver mass suspicious for hepatocellular carcinoma, right portal vein thrombus; innumerable pulmonary nodules suspicious for metastatic disease; moderate volume of free fluid in the abdomen/pelvis; splenomegaly and esophageal varices ; cholelithiasis; left uterine leiomyoma. -Afebrile with no leukocytosis. Abdomen soft and nontender on exam. -S/P IV Zosyn in the ED. No signs of SBP at this time. C. difficile negative. -Abdominal U/S revealed not enough ascites for paracentesis -Gastroenterology on board, Hold off on antibiotics at this time, plan for EGD/ colonoscopy tomorrow -Pain control with tramadol as needed. Lactinex. Protonix. Continue Flagyl. -AFP elevated -Consult Oncology, discussed with Dr. Ogden, appreciate recommendations Pulmonary Embolism and Portal Vein Thrombus: Chest CT with filling defect in both pulmonary arterities characteristic of pulmonary embolic disease. Oncology on board. Continue on IV Heparin Drip for now, plan to transition to Coumadin. Hepatitis C/cirrhosis/thrombocytopenia: Chronic. Continue furosemide and ferrous sulfate. Hyperglycemia: Past history of diabetes mellitus, on no meds currently. Random glucose 117, fasting 84. Hemoglobin A1c 5.6. SSI with Accu-Cheks. DVT prophylaxis: SCDs, on Heparin drip Written by Alecia Alexander, acting as scribe for Dr. Martínez on 12/19/16 at 09:25. The documentation accurately reflects the work performed [id number] by ne Dr. Martínez on 12/19/16 at 09:25. Discharge Planning Admit to inpatient, meets criteria since 12/18 with b/l pulmonary embolism, on Heparin drip. Going for GI procedures tomorrow. Then will need to bridge heparin to Coumadin. Problem Qualifiers (1) Abdominal pain: Qualified Code: R10.9 - Abdominal pain, unspecified location Alecia Alexander PA-C Dec 19, 2016 10:47 Melva Martínez MD Dec 19, 2016 12:53
[2016-12-19 11:04] LABS: BASOPHIL % 0.5 % (0.0-2.0); EOSINOPHIL # 0.2 TH/MM3 (0-0.4); EOSINOPHIL % 3.1 % (0.0-4.0); LYMPH % 8.4 % (9.0-44.0); LYMPHOCYTE # 0.4 TH/MM3 (1.0-4.8); MEAN CELL VOLUME 87.1 FL (80.0-100.0); MEAN CORPUSCULAR HEMOGLOBIN 29.3 PG (27.0-34.0); MEAN CORPUSCULAR HGB CONC 33.7 % (32.0-36.0); MONO % 10.5 % (0.0-8.0); NEUT % 77.5 % (16.0-70.0); PLATELET COUNT 78 TH/MM3 (150-450); RED BLOOD COUNT 4.02 MIL/MM3 (4.00-5.30); RED CELL DISTRIBUTION WIDTH 16.2 % (11.6-17.2); WHITE BLOOD COUNT 5.1 TH/MM3 (4.0-11.0)
[2016-12-19 11:09] LABS: HEMO FLAGS AUTO DIFF
[2016-12-19] MEDS ORDERED: DO NOT ADM ANY ANTICOAGULANT DRUGS XX PRN (11:15)
--- NOTE | 2016-12-19 11:25 | PD.ONC.PN ---
Subjective Subjective Remarks Afebrile overnight. Patient resting comfortably without complaint. She denies pain and states she feels well today. No bleeding. No difficulty breathing. Objective Data Date Time Temp Pulse Resp B/P Pulse Ox O2 Delivery O2 Flow Rate FiO2 12/19/16 07:47 98.3 89 17 126/61 94 12/19/16 03:53 97.8 86 18 141/67 92 12/19/16 01:15 98.7 57 18 132/68 97 12/18/16 23:22 88 12/18/16 20:35 16 12/18/16 19:12 97.8 103 21 136/63 94 12/18/16 13:20 98.0 88 18 128/76 94 12/19/16 12/19/16 12/19/16 07:00 15:00 23:00 Intake Total 240 ml Balance 240 ml Result Diagram: 12/18/16 2347 12/18/16 0450 Laboratory Results Laboratory Tests Test 12/18/16 12/19/16 12/19/16 12/19/16 23:47 03:00 03:18 05:53 White Blood Count 5.8 TH/MM3 Red Blood Count 3.86 MIL/MM3 Hemoglobin 11.0 GM/DL Hematocrit 34.0 % Mean Corpuscular Volume 88.0 FL Mean Corpuscular Hemoglobin 28.4 PG Mean Corpuscular Hemoglobin 32.3 % Concent Red Cell Distribution Width 15.9 % Platelet Count 78 TH/MM3 Mean Platelet Volume 12.0 FL Prothrombin Time 14.5 SEC Prothromb Time International 1.3 RATIO Ratio Activated Partial 68.9 SEC 90.3 SEC 71.4 SEC Thromboplast Time Stool C. difficile Toxin (PCR) NEGATIVE Stl C. difficile Toxin PRESUMPTIVE Epiderm 027 NEGATIVE Culture Results Microbiology Date/Time Procedure Status Source Growth 12/19/16 03:00 Stool Pus (YAMIL) Received Stool Stool Pending 12/19/16 03:00 Stool Occult Blood (YAMIL) - Final Complete Stool Stool HEMOCCULT POSITIVE Imaging Studies Last Impressions Chest CT 12/18/16 0000 Signed Impressions: Service Date/Time: Sunday, December 18, 2016 18:02 - CONCLUSION: 1. Multiple bilateral subcentimeter pulmonary nodules characteristic of pulmonary metastatic disease in patient with known liver masses. 2. Filling defects in both pulmonary arteries characteristic of pulmonary embolic disease. 3. Trace right pleural fluid. Mild ascites. Alfredo Rivas MD Abdomen Ultrasound 12/18/16 0000 Signed Impressions: Service Date/Time: Saturday, December 17, 2016 17:42 - CONCLUSION: There is not enough ascites for safe paracentesis.. Lucien Fuentes MD FACR Abdomen MRI 12/18/16 0000 Signed Impressions: Service Date/Time: Sunday, December 18, 2016 11:10 - CONCLUSION: 1. 2 hepatic masses involving the right lobe of the liver as detailed above with signal characteristics suggesting multifocal hepatocellular carcinoma in this patient with cirrhosis. There is tumor thrombus extending into an accessory right hepatic vein and down the IVC slightly. There is complete thrombosis of the right portal vein with some nonocclusive thrombus involving the main portal vein. Biliary dilatation involving the right hepatic lobe. 2. Cholelithiasis. 3. Splenomegaly. 4. Small volume ascites. 5. Tiny bilateral pleural effusions. Adam Byrne Jr., MD Abdomen/Pelvis CT 12/17/16 1148 Signed Impressions: Service Date/Time: Saturday, December 17, 2016 13:20 - CONCLUSION: 1. Cirrhotic liver with right lobe liver mass suspicious for hepatocellular carcinoma. There is diffuse heterogeneous enhancement of the right lobe with thrombus in the right portal vein. 2. There are innumerable pulmonary nodules in the lung bases suspicious for metastatic disease. 3. Moderate volume of the free fluid in the abdomen and pelvis. Other findings suggesting portal hypertension including splenomegaly and esophageal varices. 4. Nonacute findings include cholelithiasis and 2 cm left uterine mass likely representing a leiomyoma. Rahul Gan MD Administered Medications Medications (Trade) Dose Ordered Sig/Jason Route PRN Reason Start Time Stop Time Status Last Admin Dose Admin IV Flush (NS Flush) 2 ml BID FLUSH 12/17/16 21:00 12/18/16 21:24 Tramadol HCl (Ultram) 50 mg Q4H PRN PO PAIN SCALE 3 TO 5 12/17/16 16:15 12/17/16 21:40 Tramadol HCl (Ultram) 100 mg Q4H PRN PO PAIN SCALE 6 TO 10 12/17/16 16:15 12/19/16 10:01 Pantoprazole Sodium (Protonix) 40 mg DAILY PO 12/18/16 09:00 12/19/16 09:56 Lactobacillus Acidophilus (Lactinex) 1 tab TID PO 1/22/17 18:00 12/19/16 09:56 Ferrous Sulfate (Ferrous Sulfate) 325 mg DAILY PO 12/18/16 09:00 12/19/16 10:01 Furosemide (Lasix) 20 mg DAILY PO 12/18/16 09:00 12/19/16 09:56 Metronidazole 250 mg 250 mg TID PO 12/17/16 18:00 12/19/16 17:59 12/19/16 09:56 Heparin Sodium/ Dextrose (Heparin-D5W Inj) 250 ml @ 0 mls/hr TITRATE IV 12/18/16 20:45 12/18/16 21:27 Objective Remarks GENERAL: Middle aged female, sitting up in bed in [place]. SKIN: Warm and dry. HEAD: Normocephalic. EYES: No injection or drainage. NECK: Supple, trachea midline. CARDIOVASCULAR: Regular rate and rhythm RESPIRATORY: Breath sounds equal bilaterally. No accessory muscle use. GASTROINTESTINAL: Abdomen soft, mildly distended. EXTREMITIES: No cyanosis NEUROLOGICAL: awake and alert, normal speech, moving all extremities. Assessment/Plan Problem List: (1) Hepatocellular carcinoma Status: Acute Plan: --fs faxed to npr. plan for outpatient follow up. possibly start Nexavar History: --presented with increased abdominal pain x several weeks. --afp elevated --Liver mass in the setting of cirrhosis and elevated alpha-fetoprotein most consistent with hepatocellular carcinoma. --CT ab/pelvis +cirrhotic liver with 6 x 3 cm right hepatic lobe mass. + evidence of thrombus in the right portal vein. +innumerable pulmonary nodules. --CT chest--multiple bilateral subcentimeter pulmonary nodules characteristic of pulmonary metastatic disease in patient with known liver masses. --With lung metastasis she will not be a candidate for a liver transplant. Treatment option would be Nexavar. I do not think she can have embolization due to the portal vein thrombosis. (2) Pulmonary emboli Status: Acute Plan: --on heparin-->coumadin --patient could be transitioned to Lovenox once ready for d/c (3) Portal vein thrombosis Status: Acute (4) Thrombocytopenia Status: Acute Plan: -- Chronic thrombocytopenia due to underlying cirrhosis and hypersplenism. --monitor for bleeding Assessment 66y/o with hepatocellular carcinoma --h/o hepatitis C and cirrhosis Diabetes mellitus. Hemorrhoid. Osteoporosis. Pneumonia. Osteoarthritis. Migraine headache. Chronic bronchitis Plan 1. start coumadin 2mg PO daily. monitor INR 2. when ready for d/c could be changed to Lovenox 1mg/kg BID 3. fs faxed to npr for follow up in 2 weeks. Attending Statement The exam, history, and the medical decision-making described in the above note were completed with the assistance of the mid-level provider. I reviewed and agree with the findings presented. I attest that I had a [id number] encounter with the patient on the same day, and personally performed and documented my assessment and findings in the medical record. Abdominal pain has improved. Reviewed MRI findings with patient. Presented her case to tumor board. The MRI/CT findings and elevated AFP are sufficient for diagnosis of hepatocellular carcinoma. Not candidate for embolization due to portal vein thrombosis. Can consider XRT if she has increased pain. Can try Nexavar for palliative purposes. She understand that the HCC is not curable. Her questions were answered. Found to have bilateral PE. Agree with heparin and bridge to coumadin. Can consider lovenox if that can be arranged. Aria Lucas Dec 19, 2016 11:25 Parviz Ogden MD Dec 19, 2016 17:50
--- NOTE | 2016-12-19 12:03 | HHI.GIFU ---
Subjective Remarks Pt doing well, no complaints. Abdominal pain has resolved. Diarrhea is less, reports more consistent BM's. Objective Vitals I&O Vital Signs Date Time Temp Pulse Resp B/P Pulse Ox O2 Delivery O2 Flow Rate FiO2 12/19/16 11:35 86 18 138/74 93 12/19/16 07:47 98.3 89 17 126/61 94 12/19/16 03:53 97.8 86 18 141/67 92 12/19/16 01:15 98.7 57 18 132/68 97 12/18/16 23:22 88 12/18/16 20:35 16 12/18/16 19:12 97.8 103 21 136/63 94 12/18/16 13:20 98.0 88 18 128/76 94 I/O 12/18/16 12/18/16 12/18/16 12/19/16 12/19/16 12/19/16 06:59 14:59 22:59 06:59 14:59 22:59 Intake Total 240 ml Balance 240 ml Intake Oral 240 ml # Voids 2 # Bowel Movements 1 Laboratory Laboratory Tests Test 12/18/16 12/19/16 12/19/16 12/19/16 23:47 03:00 03:18 05:53 White Blood Count 5.8 Red Blood Count 3.86 Hemoglobin 11.0 Hematocrit 34.0 Mean Corpuscular Volume 88.0 Mean Corpuscular Hemoglobin 28.4 Mean Corpuscular Hemoglobin 32.3 Concent Red Cell Distribution Width 15.9 Platelet Count 78 Mean Platelet Volume 12.0 Prothrombin Time 14.5 Prothromb Time International 1.3 Ratio Activated Partial 68.9 90.3 71.4 Thromboplast Time Stool C. difficile Toxin (PCR) NEGATIVE Stl C. difficile Toxin PRESUMPTIVE Epiderm 027 NEGATIVE Test 12/19/16 09:52 White Blood Count 5.1 Red Blood Count 4.02 Hemoglobin 11.8 Hematocrit 35.0 Mean Corpuscular Volume 87.1 Mean Corpuscular Hemoglobin 29.3 Mean Corpuscular Hemoglobin 33.7 Concent Red Cell Distribution Width 16.2 Platelet Count 78 Mean Platelet Volume 12.2 Neutrophils (%) (Auto) 77.5 Lymphocytes (%) (Auto) 8.4 Monocytes (%) (Auto) 10.5 Eosinophils (%) (Auto) 3.1 Basophils (%) (Auto) 0.5 Neutrophils # (Auto) 4.0 Lymphocytes # (Auto) 0.4 Monocytes # (Auto) 0.5 Eosinophils # (Auto) 0.2 Basophils # (Auto) 0.0 CBC Comment AUTO DIFF Date/Time Procedure Status Source Growth 12/19/16 03:00 Stool Pus (YAMIL) - Final Complete Stool Stool NO WBC'S SEEN 12/19/16 03:00 Stool Occult Blood (YAMIL) - Final Complete Stool Stool HEMOCCULT POSITIVE Imaging Last [address] 12/18/16 0000 Signed Impressions: Service Date/Time: Sunday, December 18, 2016 18:02 - CONCLUSION: 1. Multiple bilateral subcentimeter pulmonary nodules characteristic of pulmonary metastatic disease in patient with known liver masses. 2. Filling defects in both pulmonary arteries characteristic of pulmonary embolic disease. 3. Trace right pleural fluid. Mild ascites. Alfredo Rivas MD Abdomen Ultrasound 12/18/16 0000 Signed Impressions: Service Date/Time: Saturday, December 17, 2016 17:42 - CONCLUSION: There is not enough ascites for safe paracentesis.. Lucien Fuentes MD FACR Abdomen MRI 12/18/16 0000 Signed Impressions: Service Date/Time: Sunday, December 18, 2016 11:10 - CONCLUSION: 1. 2 hepatic masses involving the right lobe of the liver as detailed above with signal characteristics suggesting multifocal hepatocellular carcinoma in this patient with cirrhosis. There is tumor thrombus extending into an accessory right hepatic vein and down the IVC slightly. There is complete thrombosis of the right portal vein with some nonocclusive thrombus involving the main portal vein. Biliary dilatation involving the right hepatic lobe. 2. Cholelithiasis. 3. Splenomegaly. 4. Small volume ascites. 5. Tiny bilateral pleural effusions. Adam Byrne Jr., MD Physical Exam HEENT: Pupils round and reactive to light; normocephalic; atraumatic; no jaundice. Throat is clear. NECK: Neck is supple, no JVD, no lymphadenopathy. ABDOMEN: Soft, distended, nontender; no hepatosplenomegaly; bowel sounds are present in all four quadrants. EXTREMITIES: No clubbing, cyanosis, or edema. SKIN: Normal; no rash; no jaundice. BLOWER INSULATOR: No focal deficits; alert and oriented times three. Assessment and Plan Assessment: (1) Fecal occult blood test positive (2) Cirrhosis (3) Hepatocellular carcinoma Plan 1. Hepatocellular carcinoma - MRI with radiological features of metastatic HCC. two lesions seen, one large (do not give exact measurements on MRI report but CT called it 6.0 cmm) and smaller one 2.9cm with adjacent tumor thrombus and multiple subcentimeter pulmonary nodules. Recommend against liver biopsy since we can make diagnosis based on imaging and elevated AFP. - Oncology on board, maybe candidate for Nexavar 2. Pulmonary embolisms - noted on chest CT - started on heparin drip, plan to transition to warfarin 3. fecal occult blood possible/ mild anemia - monitor hb daily, transfuse as needed to keep hb > 7 - would recommend completing EGD/colonoscopy before starting chronic anticoagulation with warfarin - will plan for procedure in AM - clear liquid diet, NPO at midnight - hold Heparin drip @ midnight for procedures 4. Hep C induced cirrhosis - low MELD, not candidate for liver tx due to metastatic HCC - plan to perform EGD for variceal screening - Minimal ascites, unable to perform paracentesis. Continue low Na diet and low dose diuretics - no significant hepatic encephalopathy, continue to monitor Vijay Schaefer MD Dec 19, 2016 12:03
[2016-12-19 12:17] LABS: PLATELET ESTIMATE SMEAR LOW (NORMAL); PLATELET MORPHOLOGY ENLARGED (NORMAL); SCAN/DIFF AUTO DIFF CONFIRMED
[2016-12-19 12:18] LABS: KERATOCYTES OCC (NORMAL); OVALOCYTES 1+ (NORMAL); TEARDROP RBCS 1+ (NORMAL)
[2016-12-19 13:54] LABS: APTT (PATIENT) 46.9 SEC (24.3-30.1)
--- NOTE | 2016-12-19 15:42 | PD.CONS ---
Consult Service Palliative Care . Consult Requested By Alecia Alexander . Primary Care Physician Geovanni Munoz M.D. . Reason for Consultation a. To assist with evaluation and management of symptoms including: Pain, Anxiety, Diarrhea b. To assist medical decision maker(s) with: better understanding of current medical conditions; weighing benefits/burdens of medical treatment options; making medical treatment decisions. . HPI History of Present Illness Ms. Merino is a 66-year-old female patient with a past medical history including hepatitis C, cirrhosis and thrombocytopenia. She presented to [facility] on 12/17/16 for evaluation of severe abdominal pain, primarily in the mid epigastric region. Patient reported a 3-4 week history of right-sided abdominal pain, greater in the lower quadrant, for which she has seen her PCP. A liver ultrasound showed cholelithiasis, which is chronic for the patient. She then followed up with her farm machinery set up mechanic, who started her on Flagyl for a suspected infection. Patient reported having associated gas, distention, nausea and diarrhea. Her oral intake has decreased because it is associated with increased pain. She has been trying to eat a bland diet. Her farm machinery set up mechanic is Rylie. She follows Dr. Ogden for chronic thrombocytopenia. Additional medical history includes diabetes, osteoporosis, osteoarthritis, pneumonia, migraines, chronic bronchitis, hemorrhoids and asthma. Diagnostic findings in the ED: * Vital signs: Pulse 107, respirations 17, BP 173/79, oxygen saturation 95% on room air, temperature 98.0 * WBC: 7.7, hemoglobin 12.6, hematocrit 39.1, platelets 110, neutrophils 83.2 * Sodium: 139, potassium 4.6, chloride 106, carbon dioxide 23.7, glucose 117, calcium 9.8 * BUN: 16, creatinine 0.58, GFR 107 * Total bilirubin 0.8, AST 344, ALT 61, alkaline phosphatase 173 * Lactate dehydrogenase: 588 * Total protein: 6.8, albumin 2.9 * Lipase: 126 * Tumor marker AFP: 2896.5 * PT: 13.5, INR 1.2, APTT 31.5 * Urinalysisnegative * CT abdomen/pelvis: Cirrhotic liver with 6 x 5 cm right hepatic lobe mass suspicious for hepatocellular carcinoma. Here was also evidence of a thrombus in the right portal vein. There were innumerable pulmonary nodules in the lung bases suspicious for metastatic disease The patient was admitted for further evaluation and medical management. Gastroenterology and oncology were consulted. Oncology evaluated the patient and made recommendations for additional diagnostic testing. ==CT chest showed multiple bilateral subcentimeter pulmonary nodules characteristic of pulmonary metastatic disease in this patient with known liver masses. Filling defects in the pulmonary arteries characteristic of pulmonary embolic disease. There was trace right pleural fluid and mild ascites noted. ==MRI abdomen showed 2 hepatic masses involving the right lobe of the liver with signal characteristics suggesting multifocal hepatocellular carcinoma in this patient with cirrhosis. There is a tumor thrombus extending into the accessory right hepatic vein and down the IVC slightly there is a complete thrombosis of the right portal vein with some nonocclusive thrombus involving the main portal vein. Biliary dilatation involving the right hepatic lobe. Cholelithiasis, splenomegaly, small volume ascites and tiny bilateral pleural effusions were also noted. Gastroenterology continues to follow this patient. Patient continues to have abdominal pain and diarrhea, concerning for possible underlying SBT. Remains on Flagyl. Minimal ascites on abdominal ultrasound, unable to perform paracentesis. MELD score 8 secondary to hepatitis C induced cirrhosis, would not be a candidate for liver transplant secondary to metastatic hepatocellular carcinoma. Recommending EGD/colonoscopy before starting patient on anticoagulation therapy - also variceal screening. Presented to tumor board today 12/19/16. Recommendations against a liver biopsy given radiological features of hepatocellular carcinoma and and elevated alpha- fetoprotein of 2896.5. Palliative Care was consulted to assist with symptom management and to discuss with the patient/family the benefits and burdens of her current illnesses and the options regarding future care. . Function/Cognitive Trajectory 66 year old patient with a past medical history that includes hepatitis C, cirrhosis, thrombocytopenia and recovering EtOH abuse. She was functional and living independently. Patient has progressively worsening right-sided abdominal pain for approximately 3-4 weeks. Presenting to [facility] on 12/17/16 with acute pain. Subsequently diagnosed with stage IV metastatic hepatocellular carcinoma. . Review of Systems Constitutional: COMPLAINS OF: Pain (Right-sided abdominal pain, greater and lower quadrant. Mid epigastric pain. New onset right-sided lower back pain.), Generalized weakness Endocrine: DENIES: Polydipsia, Polyuria, Polyphagia Eyes: DENIES: Blurred vision Ears, nose, mouth, throat: DENIES: Epistaxis Respiratory: DENIES: Hemoptysis, Shortness of breath Cardiovascular: DENIES: Lower Extremity Edema Gastrointestinal: COMPLAINS OF: Abdominal pain, Diarrhea, Nausea, Excessive gas , DENIES: Bloody stools Musculoskeletal: COMPLAINS OF: Joint pain, Back pain Hematologic/Lymphatics: COMPLAINS OF: Bruising Psychiatric: COMPLAINS OF: Anxiety Past Family Social History Coded Allergies: Shellfish (Verified Allergy, Intermediate, HIVES, 12/17/16) Past Medical History Hepatitis C Cirrhosis Diabetes Osteoporosis Pneumonia Osteoarthritis Migraine headache Chronic bronchitis Hemorrhoids Asthma Thrombocytopenia . Past Surgical History Patient denies previous surgical history . Reported Medications Feosol (Ferrous Sulfate) 65 Mg Tab 65 Mg PO DAILY Potassium 99 Mg Tab 99 Mg PO DAILY Magnesium 250 Mg Tab 250 Mg PO BID Echinacea Unknown Strength Tab 2 Tab PO BID Glucosamine Chondroitin (Yegaigziisn-Xqzromiwtad-Ezh C-) 1 Tab Tab 2 Tab PO DAILY Calcium Unknown Strength Tab 1 Tab PO BID Flagyl (Metronidazole) 250 Mg Tab 250 Mg PO TID Furosemide 20 Mg Tab 20 Mg PO DAILY . Current Medications Medications (Trade) Dose Ordered Sig/Jason Route Start Time Stop Time Status Last Admin (D50w (Vial) Inj) 25 ml UNSCH PRN IV PUSH 12/17/16 16:15 (Glucagon Inj) 1 mg UNSCH PRN OTHER 12/17/16 16:15 (NS Flush) 2 ml UNSCH PRN FLUSH 12/17/16 16:15 (NS Flush) 2 ml BID FLUSH 12/17/16 21:00 12/18/16 21:24 (Zofran Inj) 4 mg Q6H PRN IVP 12/17/16 16:15 (Dulcolax Supp) 10 mg DAILY PRN DE 12/17/16 16:15 (Milk Of Magnesia Liq) 30 ml Q12H PRN PO 12/17/16 16:15 (Senokot) 17.2 mg Q12H PRN PO 12/17/16 16:15 (Morphine Inj) 2 mg Q3H PRN IV 12/17/16 16:15 (Ultram) 50 mg Q4H PRN PO 12/17/16 16:15 12/17/16 21:40 (Ultram) 100 mg Q4H PRN PO 12/17/16 16:15 12/19/16 10:01 (Narcan Inj) 0.4 mg UNSCH PRN IV 12/17/16 16:15 (Protonix) 40 mg DAILY PO 12/18/16 09:00 12/19/16 09:56 (Lactinex) 1 tab TID PO 12/17/16 18:00 12/19/16 13:34 (Ferrous Sulfate) 325 mg DAILY PO 12/18/16 09:00 12/19/16 10:01 (Lasix) 20 mg DAILY PO 12/18/16 09:00 12/19/16 09:56 Metronidazole 250 mg 250 mg TID PO 12/17/16 18:00 12/19/16 17:59 12/19/16 13:35 Heparin Sodium/ Dextrose 250 ml @ 0 mls/hr TITRATE IV 12/18/16 20:45 12/18/16 21:27 (D5-Lr Inj) 1,000 ml @ 20 mls/hr Q24H IV 12/19/16 10:27 12/20/16 10:26 (Colyte Liq) 2,000 ml Q8H PO 12/19/16 18:30 12/20/16 02:31 (Coumadin) 2 mg DAILY@16 PO 12/19/16 16:00 Miscellaneous Information ALL NURSING DEPARTME... UNSCH PRN XX 12/19/16 11:15 12/20/16 11:14 (Coumadin Booklet) 1 ONCE ONCE XX 12/19/16 16:00 12/19/16 16:01 . Family History Sister , secondary to kidney cancer. . Substance Use Tobacco: Previous smoker 1/2 PPD for 30 years, quit approximately 3 years ago. Alcohol: Previous heavy EtOH consumption, quit drinking alcohol approximately 2 years ago. Prescription med abuse: None known Illicits: None known . Psychosocial History Patient was born at [facility] and graduated from [employer]. She has 4 sister, one from renal carcinoma. She is . 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 She has 2 daughters, Maya Beth, who live locally. Her 27-year-old granddaughter (Reanna) has cerebral palsy and is light of the patient's life. . Spiritual/Cultural Factors Episcopal russ . Date completed: 09/18/17 . Health Care Surrogate(s): Patient's daughter, Maya Borrero, is designated as the healthcare surrogate. Today's verbally stated goals: Pending family meeting in further discussion tomorrow on 12/20/16. Patient will likely transition to comfort focused care and upcoming days. Family/friends goals: Patient's daughter, Maya, indicating she and her sister will be supportive of what ever goals their mother establishes. . Ethical and Legal Issues No known apical or legal issues known at this time. . Physical Exam Vital Signs Date Time Temp Pulse Resp B/P Pulse Ox O2 Delivery O2 Flow Rate FiO2 12/19/16 11:35 86 18 138/74 93 12/19/16 11:01 20 12/19/16 07:47 98.3 89 17 126/61 94 12/19/16 03:53 97.8 86 18 141/67 92 12/19/16 01:15 98.7 57 18 132/68 97 12/18/16 23:22 88 12/18/16 19:12 97.8 103 21 136/63 94 12/18/16 12/19/16 19:00 07:00 Intake Total 240 ml Balance 240 ml Intake Oral 240 ml # Voids 2 # Bowel Movements 1 Exam CONSTITUTIONAL/GENERAL: This is an adequately nourished patient, in no apparent distress. TUBES/LINES/DRAINS: PIV SKIN: No jaundice, rashes, or lesions. No wounds seen anteriorly. Skin is warm and dry, color within normal limits for ethnicity. HEAD: Atraumatic. Normocephalic. EYES: Pupils equal and round and reactive. Extraocular motions intact. No scleral icterus. No injection or drainage. Fundi not examined. ENT: Hearing grossly normal. Nose without bleeding or purulent drainage. NECK: Trachea midline. Supple, nontender. No palpable thyroid enlargement or nodularity. CARDIOVASCULAR: Regular rate and rhythm without murmurs, gallops, or rubs. No JVD. Peripheral pulses symmetric. RESPIRATORY/CHEST: Symmetric, unlabored respirations. Clear to auscultation. Breath sounds equal bilaterally. No wheezes, rales, or rhonchi. GASTROINTESTINAL: Abdomen slightly distended, tender to palpation. Bowel sounds present. GENITOURINARY: Without palpable bladder distension. MUSCULOSKELETAL: Extremities without clubbing, cyanosis, or edema. No mottling or clubbing. LYMPHATICS: No palpable cervical or supraclavicular adenopathy. NEUROLOGICAL: Awake and alert. Follows commands. Cognitively sharp. Moves all extremities. PSYCHIATRIC: No obvious anxiety/depression. no apparent hallucinations or other psychotic thought process. . Diagnostic Tests Laboratory Laboratory Tests Test 12/17/16 12/17/16 12/18/16 12/18/16 11:40 20:18 04:50 23:47 White Blood Count 7.7 TH/MM3 6.5 TH/MM3 5.8 TH/MM3 (4.0-11.0) (4.0-11.0) (4.0-11.0) Red Blood Count 4.41 MIL/MM3 4.15 MIL/MM3 3.86 MIL/MM3 (4.00-5.30) (4.00-5.30) (4.00-5.30) Hemoglobin 12.6 GM/DL 12.0 GM/DL 11.0 GM/DL (11.6-15.3) (11.6-15.3) (11.6-15.3) Hematocrit 39.1 % 36.7 % 34.0 % (35.0-46.0) (35.0-46.0) (35.0-46.0) Mean Corpuscular Volume 88.6 FL 88.3 FL 88.0 FL (80.0-100.0) (80.0-100.0) (80.0-100.0) Mean Corpuscular Hemoglobin 28.6 PG 28.8 PG 28.4 PG (27.0-34.0) (27.0-34.0) (27.0-34.0) Mean Corpuscular Hemoglobin 32.3 % 32.6 % 32.3 % Concent (32.0-36.0) (32.0-36.0) (32.0-36.0) Red Cell Distribution Width 16.4 % 16.1 % 15.9 % (11.6-17.2) (11.6-17.2) (11.6-17.2) Platelet Count 110 TH/MM3 98 TH/MM3 78 TH/MM3 (150-450) (150-450) (150-450) Mean Platelet Volume 12.5 FL 11.8 FL 12.0 FL (7.0-11.0) (7.0-11.0) (7.0-11.0) Neutrophils (%) (Auto) 83.2 % 78.1 % (16.0-70.0) (16.0-70.0) Lymphocytes (%) (Auto) 6.1 % 8.0 % (9.0-44.0) (9.0-44.0) Monocytes (%) (Auto) 8.5 % (0.0-8.0) 11.2 % (0.0-8.0) Eosinophils (%) (Auto) 0.8 % (0.0-4.0) 1.6 % (0.0-4.0) Basophils (%) (Auto) 1.4 % (0.0-2.0) 1.1 % (0.0-2.0) Neutrophils # (Auto) 6.4 TH/MM3 5.1 TH/MM3 (1.8-7.7) (1.8-7.7) Lymphocytes # (Auto) 0.5 TH/MM3 0.5 TH/MM3 (1.0-4.8) (1.0-4.8) Monocytes # (Auto) 0.7 TH/MM3 0.7 TH/MM3 (0-0.9) (0-0.9) Eosinophils # (Auto) 0.1 TH/MM3 0.1 TH/MM3 (0-0.4) (0-0.4) Basophils # (Auto) 0.1 TH/MM3 0.1 TH/MM3 (0-0.2) (0-0.2) CBC Comment AUTO DIFF AUTO DIFF Differential Comment AUTO DIFF AUTO DIFF CONFIRMED CONFIRMED Platelet Estimate LOW (NORMAL) LOW (NORMAL) Platelet Morphology Comment ENLARGED ENLARGED (NORMAL) (NORMAL) Tear Drop Cells 1+ (NORMAL) 1+ (NORMAL) Ovalocytes 1+ (NORMAL) 1+ (NORMAL) Prothrombin Time 13.5 SEC 14.5 SEC (9.8-11.6) (9.8-11.6) Prothromb Time International 1.2 RATIO 1.3 RATIO Ratio Activated Partial 31.5 SEC 68.9 SEC Thromboplast Time (24.3-30.1) (24.3-30.1) Urine Color Kelly (YELLW/STRAW) Urine Turbidity CLEAR (CLEAR) Urine pH 5.5 (5.0-8.5) Urine Specific [place] 1.029 (1.002-1.035) Urine Protein 30 mg/dL (NEG-TRACE) Urine Glucose (UA) 100 mg/dL (NEG) Urine Ketones 15 mg/dL (NEG) Urine Occult Blood NEG (NEG) Urine Nitrite NEG (NEG) Urine Bilirubin SMALL (NEG) Urine Urobilinogen 0.2 MG/DL (LESS THAN 2.0) Urine Leukocyte Esterase NEG (NEG) Urine Bacteria RARE /hpf (NONE) Microscopic Urinalysis Comment CULT NOT INDICATED Sodium Level 139 MEQ/L 139 MEQ/L (136-145) (136-145) Potassium Level 4.6 MEQ/L 4.5 MEQ/L (3.5-5.1) (3.5-5.1) Chloride Level 106 MEQ/L 107 MEQ/L (98-107) (98-107) Carbon Dioxide Level 23.7 MEQ/L 25.9 MEQ/L (21.0-32.0) (21.0-32.0) Anion Gap 9 MEQ/L (5-15) 6 MEQ/L (5-15) Blood Urea Nitrogen 16 MG/DL (7-18) 15 MG/DL (7-18) Creatinine 0.58 MG/DL 0.70 MG/DL (0.50-1.00) (0.50-1.00) Estimat Glomerular Filtration 104 ML/MIN 83 ML/MIN (>89) Rate (>89) Random Glucose 117 MG/DL 84 MG/DL (74-106) (74-106) Calcium Level 9.8 MG/DL 9.1 MG/DL (8.5-10.1) (8.5-10.1) Total Bilirubin 0.8 MG/DL (0.2-1.0) Aspartate Amino Transf 344 U/L (15-37) (AST/SGOT) Alanine Aminotransferase 61 U/L (10-53) (ALT/SGPT) Alkaline Phosphatase 173 U/L (45-117) Lactate Dehydrogenase 588 U/L (84-246) Total Protein 6.8 GM/DL (6.4-8.2) Albumin 2.9 GM/DL (3.4-5.0) Lipase 126 U/L (73-393) Hemoglobin A1c 5.6 % (4.3-6.0) Tumor Marker Alpha Fetoprotein 2896.5 NG/ML (0.5-8.0) Keratocytes OCC (NORMAL) Test 12/19/16 12/19/16 12/19/16 12/19/16 03:00 03:18 05:53 09:52 Stool C. difficile Toxin (PCR) NEGATIVE (NEGATIVE) Stl C. difficile Toxin PRESUMPTIVE Epiderm 027 NEGATIVE (NEGATIVE) Activated Partial 90.3 SEC 71.4 SEC Thromboplast Time (24.3-30.1) (24.3-30.1) White Blood Count 5.1 TH/MM3 (4.0-11.0) Red Blood Count 4.02 MIL/MM3 (4.00-5.30) Hemoglobin 11.8 GM/DL (11.6-15.3) Hematocrit 35.0 % (35.0-46.0) Mean Corpuscular Volume 87.1 FL (80.0-100.0) Mean Corpuscular Hemoglobin 29.3 PG (27.0-34.0) Mean Corpuscular Hemoglobin 33.7 % Concent (32.0-36.0) Red Cell Distribution Width 16.2 % (11.6-17.2) Platelet Count 78 TH/MM3 (150-450) Mean Platelet Volume 12.2 FL (7.0-11.0) Neutrophils (%) (Auto) 77.5 % (16.0-70.0) Lymphocytes (%) (Auto) 8.4 % (9.0-44.0) Monocytes (%) (Auto) 10.5 % (0.0-8.0) Eosinophils (%) (Auto) 3.1 % (0.0-4.0) Basophils (%) (Auto) 0.5 % (0.0-2.0) Neutrophils # (Auto) 4.0 TH/MM3 (1.8-7.7) Lymphocytes # (Auto) 0.4 TH/MM3 (1.0-4.8) Monocytes # (Auto) 0.5 TH/MM3 (0-0.9) Eosinophils # (Auto) 0.2 TH/MM3 (0-0.4) Basophils # (Auto) 0.0 TH/MM3 (0-0.2) CBC Comment AUTO DIFF Differential Comment AUTO DIFF CONFIRMED Platelet Estimate LOW (NORMAL) Platelet Morphology Comment ENLARGED (NORMAL) Tear Drop Cells 1+ (NORMAL) Ovalocytes 1+ (NORMAL) Keratocytes OCC (NORMAL) Test 12/19/16 12:50 Activated Partial 46.9 SEC Thromboplast Time (24.3-30.1) . Result Diagram: 12/19/16 0952 12/18/16 0450 Microbiology Microbiology Date/Time Procedure Status Source Growth 12/19/16 03:00 Stool Pus (YAMIL) - Final Complete Stool Stool NO WBC'S SEEN 12/19/16 03:00 Stool Occult Blood (YAMIL) - Final Complete Stool Stool HEMOCCULT POSITIVE . Imaging Last [address] 12/18/16 0000 Signed Impressions: Service Date/Time: Sunday, December 18, 2016 18:02 - CONCLUSION: 1. Multiple bilateral subcentimeter pulmonary nodules characteristic of pulmonary metastatic disease in patient with known liver masses. 2. Filling defects in both pulmonary arteries characteristic of pulmonary embolic disease. 3. Trace right pleural fluid. Mild ascites. Alfredo Rivas MD Abdomen Ultrasound 12/18/16 0000 Signed Impressions: Service Date/Time: Saturday, December 17, 2016 17:42 - CONCLUSION: There is not enough ascites for safe paracentesis.. Lucien Fuentes MD FACR Abdomen MRI 12/18/16 0000 Signed Impressions: Service Date/Time: Sunday, December 18, 2016 11:10 - CONCLUSION: 1. 2 hepatic masses involving the right lobe of the liver as detailed above with signal characteristics suggesting multifocal hepatocellular carcinoma in this patient with cirrhosis. There is tumor thrombus extending into an accessory right hepatic vein and down the IVC slightly. There is complete thrombosis of the right portal vein with some nonocclusive thrombus involving the main portal vein. Biliary dilatation involving the right hepatic lobe. 2. Cholelithiasis. 3. Splenomegaly. 4. Small volume ascites. 5. Tiny bilateral pleural effusions. Adam Byrne Jr., MD Abdomen/Pelvis CT 12/17/16 1148 Signed Impressions: Service Date/Time: Saturday, December 17, 2016 13:20 - CONCLUSION: 1. Cirrhotic liver with right lobe liver mass suspicious for hepatocellular carcinoma. There is diffuse heterogeneous enhancement of the right lobe with thrombus in the right portal vein. 2. There are innumerable pulmonary nodules in the lung bases suspicious for metastatic disease. 3. Moderate volume of the free fluid in the abdomen and pelvis. Other findings suggesting portal hypertension including splenomegaly and esophageal varices. 4. Nonacute findings include cholelithiasis and 2 cm left uterine mass likely representing a leiomyoma. Rahul Gan MD . Patient/Family Conference Present at Family Conference: Spoke with patient and her 2 daughters, Maya and Ignacia, at patient's bedside. Discussed patient's critical condition, recent diagnostic results and medical treatment goals. We'll meet again tomorrow on 12/20/16 when patient's sisters can be present. . Family Conference Location: Bedside Issues Discussed: * Palliative care role, purpose, approach * Additional medical, psychosocial, and spiritual history * Patients general health, functional status, and cognitive changes in the months leading up to the current hospitalization * Patient/family understanding of the current medical problems * Patient/family understanding of prognosis * Patients goals of care as best understood from advance directives and/or conversations and/or values * Current medical treatment options and benefits/burdens of those options * Likely scenarios comparing ongoing aggressive care with a transition to comfort measures only * Questions answered to the best of my ability * Palliative care contact information provided . Assessment and Plan Disease Oriented Problem List: (1) Rib pain on right side (2) SBP (spontaneous bacterial peritonitis) (3) Abdominal pain (4) Portal vein thrombosis (5) Hepatocellular carcinoma (6) Pulmonary emboli (7) Thrombocytopenia (8) Cirrhosis (9) Fecal occult blood test positive (10) Metastatic hepatocellular carcinoma to lung Symptom Scale: (1) Pain 0-10 Scale: 3 Comment: Patient reporting right-sided abdominal pain, greater in the lower quadrant; mid epigastric pain; new onset right-sided lower back pain. Pain is likely secondary to metastatic hepatocellular carcinoma, although patient does have a history of chronic back pain/RAVI. Current orders for PRN tramadol and IV morphine, being sparingly used. Patient states pain has improved a great deal, but was "excruciating " when she presented to the ED on 12/17/15. Discussed the importance of requesting pain medication before pain becomes unbearable- it is easier to maintain her acceptable pain level than recover from an acute pain crisis. Palliative care will monitor PRN requirements and make recommendations as indicated. . (2) Diarrhea (3) Anxiety Pertinent Non-Medical Issues Psychosocial: Patient was born at [facility] and graduated from [employer]. She has 4 sister, one from renal carcinoma. She is . 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 She has 2 daughters, Maya Beth, who live locally. Her 27 -year-old granddaughter (Reanna) has cerebral palsy and is light of the patient' s life. Spiritual: Episcopal russ Legal: Patient's daughter, Maya Borrero, is designated as the health care surrogate. Ethical issues impacting care: No known ethical issues impacting care at this time. Important Contacts Maya Wise, daughter: [phone] . Prognosis Patient newly diagnosed with stage IV metastatic hepatocellular carcinoma to the lungs. Prognosis is very poor, life expectancy 3-6 months. . Code Status: Full Code Plan * FULL CODE * Decision-making: Patient has designated her daughter, Maya Borrero, as health care surrogate. Form completed 12/19/16. Copy placed in patient's paper chart. * Goals: Undetermined pending family meeting, patient will likely transition to hospice in the upcoming days. * Palliative care contact information provided to patient and her 2 daughter. * Patient newly diagnosed with stage IV metastatic hepatocellular carcinoma to the lungs. Prognosis is very poor, life expectancy 3-6 months. Hospice appropriate. * Discussed with Aria Lucas, hematology/oncology PA. * Symptom managementpain: Patient reporting right-sided abdominal pain, greater in the lower quadrant; mid epigastric pain; new onset right-sided lower back pain. Pain is likely secondary to metastatic hepatocellular carcinoma, although patient does have a history of chronic back pain/RAVI. Current orders for PRN tramadol and IV morphine, being sparingly used. Patient states pain has improved a great deal, but was "excruciating " when she presented to the ED on . Discussed the importance of requesting pain medication before pain becomes unbearable- it is easier to maintain her acceptable pain level than recover from an acute pain crisis. Palliative care will monitor PRN requirements and make recommendations as indicated. * EGD/colonoscopy scheduled for tomorrow 12/20/16 at 1430. * Tentative a family meeting scheduled for tomorrow 12/20/16 at 1100. * Palliative care will continue to follow throughout hospitalization to establish trust, assist with symptom management and clarification of medical treatment goals. . Thank you for the opportunity to participate in the care of Ms. Merino. . Attestation To help prompt me to consider important information that might be impacting today's encounter and assessment, information from prior notes written by myself or my colleagues may have been "brought forward" into today's note. My signature on this note, however, is an attestation that I personally performed the exam, history, and/or decision-making noted today, and, unless otherwise indicated, the interactions with patient, family, and staff as well as the review of records all occurred today. I also attest that the listed assessment and stated plan reflect my best clinical judgment today based on the combination of historical information, prior notes, and today's exam/ interactions. When time spent is documented, it refers only to time spent today by the signer, or if indicated, combined time spent today by collaborating physician/nurse practitioner. . Priyanka Armstrong Dec 19, 2016 15:42
[2016-12-19] MEDS: WARFARIN SOD 2 MG TAB PO SCH (16:00)
[2016-12-19] MEDS: PEG (High)/E-LYTE SOLN 4000 ML BTL PO SCH (18:32)
[2016-12-19] MEDS: HEPARIN-D5W INJ 250 ML IV SCH (19:41)
[2016-12-19 20:59] LABS: APTT (PATIENT) 48.1 SEC (24.3-30.1)
[2016-12-20] VITALS (8 sets, daily range): BP systolic 139–148; BP diastolic 66–93; PULSE 68–93; RESP 18–21; TEMP 97.6–98.2; O2SAT 93–97
[2016-12-20] MEDS: PEG (High)/E-LYTE SOLN 4000 ML BTL PO SCH (02:02)
[2016-12-20 03:11] LABS: AUTOMATED NEUTROPHIL # 4.4 TH/MM3 (1.8-7.7); BASOPHIL % 0.5 % (0.0-2.0); EOSINOPHIL # 0.2 TH/MM3 (0-0.4); EOSINOPHIL % 2.7 % (0.0-4.0); HEMATOCRIT 35.9 % (35.0-46.0); LYMPH % 8.6 % (9.0-44.0); LYMPHOCYTE # 0.5 TH/MM3 (1.0-4.8); MEAN CELL VOLUME 86.6 FL (80.0-100.0); MEAN CORPUSCULAR HEMOGLOBIN 28.6 PG (27.0-34.0); MONO % 10.2 % (0.0-8.0); PLATELET COUNT 86 TH/MM3 (150-450); RED BLOOD COUNT 4.15 MIL/MM3 (4.00-5.30); RED CELL DISTRIBUTION WIDTH 16.2 % (11.6-17.2); WHITE BLOOD COUNT 5.6 TH/MM3 (4.0-11.0)
[2016-12-20 03:14] LABS: HEMO FLAGS AUTO DIFF
[2016-12-20 03:20] LABS: INTERNATIONAL NORMALIZED RATIO 1.2 RATIO; PROTHROMBIN TIME - PATIENT 13.4 SEC (9.8-11.6)
[2016-12-20 03:36] LABS: ANION GAP 9 MEQ/L (5-15); BICARBONATE 24.7 MEQ/L (21.0-32.0); BLOOD UREA NITROGEN 11 MG/DL (7-18); CHLORIDE 101 MEQ/L (98-107); GLOMERULAR FILTRATION RATE 135 ML/MIN (>89); MAGNESIUM 1.5 MG/DL (1.5-2.5); POTASSIUM 4.1 MEQ/L (3.5-5.1); SODIUM (NA) 135 MEQ/L (136-145)
[2016-12-20 03:43] LABS: ACANTHOCYTES OCC (NORMAL); KERATOCYTES OCC (NORMAL); OVALOCYTES 1+ (NORMAL); PLATELET ESTIMATE SMEAR LOW (NORMAL)
[2016-12-20 03:44] LABS: PLATELET MORPHOLOGY ENLARGED (NORMAL); SCAN/DIFF AUTO DIFF CONFIRMED
[2016-12-20 03:46] LABS: CREATINE KINASE 80 U/L (26-192)
[2016-12-20] MEDS: traMADol HCL 50 MG TAB PO PRN ×3 (06:13→17:25)
[2016-12-20] MEDS: INSULIN ASPART SUPPLEMENTAL SCALE SQ SCH ×4 (06:22→21:00)
--- NOTE | 2016-12-20 08:12 | EKG ---
Date Performed: 12/20/2016 Time Performed: 02:05:38 PTAGE: 66 years EKG: Sinus rhythm LOW QRS VOLTAGE IN PRECORDIAL LEADS POSSIBLE ANTERIOR MYOCARDIAL INFARCTION ABNORMAL ECG NO SIGNIFIC ANT CHANGE FROM PRIOR ELECTROCARDIOGRAM. PREVIOUS TRACING : 12/17/2016 12.38 DOCTOR: Yovany Pittman Interpretating Date/Time 12/20/2016 08:11:21
--- NOTE | 2016-12-20 08:22 | HHI.PR ---
Subjective Remarks Follow up for abdominal pain, hepatocellular carcinoma with mets, pulmonary embolism. The patient states she feels fairly well today. Only complains of right lower back pain. Denies any abdominal pain, nausea/vomiting, diarrhea, constipation, chest pains, or shortness of breath. Plan for family meeting today with palliative care and EGD/colonoscopy this afternoon. Objective Vitals Vital Signs Date Time Temp Pulse Resp B/P Pulse Ox O2 Delivery O2 Flow Rate FiO2 12/20/16 08:14 98.0 87 18 139/66 93 12/20/16 05:00 98.0 68 21 148/76 97 12/20/16 00:09 86 12/19/16 23:41 98.8 88 21 147/63 98 12/19/16 22:05 16 12/19/16 21:46 98.0 87 18 147/74 98 12/19/16 11:35 86 18 138/74 93 I/O 12/19/16 12/19/16 12/19/16 12/20/16 12/20/16 12/20/16 07:00 15:00 23:00 07:00 15:00 23:00 Intake Total 240 ml Balance 240 ml Intake Oral 240 ml # Voids 2 # Bowel Movements 1 Result Diagram: 12/20/16 0250 12/20/16 0250 Imaging Last Impressions Chest CT 12/18/16 0000 Signed Impressions: Service Date/Time: Sunday, December 18, 2016 18:02 - CONCLUSION: 1. Multiple bilateral subcentimeter pulmonary nodules characteristic of pulmonary metastatic disease in patient with known liver masses. 2. Filling defects in both pulmonary arteries characteristic of pulmonary embolic disease. 3. Trace right pleural fluid. Mild ascites. Alfredo Rivas MD Abdomen Ultrasound 12/18/16 0000 Signed Impressions: Service Date/Time: Saturday, December 17, 2016 17:42 - CONCLUSION: There is not enough ascites for safe paracentesis.. Lucien Fuentes MD FACR Abdomen MRI 12/18/16 0000 Signed Impressions: Service Date/Time: Sunday, December 18, 2016 11:10 - CONCLUSION: 1. 2 hepatic masses involving the right lobe of the liver as detailed above with signal characteristics suggesting multifocal hepatocellular carcinoma in this patient with cirrhosis. There is tumor thrombus extending into an accessory right hepatic vein and down the IVC slightly. There is complete thrombosis of the right portal vein with some nonocclusive thrombus involving the main portal vein. Biliary dilatation involving the right hepatic lobe. 2. Cholelithiasis. 3. Splenomegaly. 4. Small volume ascites. 5. Tiny bilateral pleural effusions. Adam Byrne Jr., MD Abdomen/Pelvis CT 12/17/16 1148 Signed Impressions: Service Date/Time: Saturday, December 17, 2016 13:20 - CONCLUSION: 1. Cirrhotic liver with right lobe liver mass suspicious for hepatocellular carcinoma. There is diffuse heterogeneous enhancement of the right lobe with thrombus in the right portal vein. 2. There are innumerable pulmonary nodules in the lung bases suspicious for metastatic disease. 3. Moderate volume of the free fluid in the abdomen and pelvis. Other findings suggesting portal hypertension including splenomegaly and esophageal varices. 4. Nonacute findings include cholelithiasis and 2 cm left uterine mass likely representing a leiomyoma. Rahul Gan MD Objective Remarks GENERAL: Well-nourished, well-developed female patient in [facility]. SKIN: Warm and dry. No rash. HEAD: Normocephalic. Atraumatic. NECK: Supple. Trachea midline. CARDIOVASCULAR: Regular rate and rhythm. S1, S2 noted. 2/6 holosystolic murmur. RESPIRATORY: No accessory muscle use. Clear to auscultation. Breath sounds equal bilaterally. GASTROINTESTINAL: Abdomen soft, non-tender, nondistended. Normoactive bowel sounds x4. MUSCULOSKELETAL: No obvious deformities. 1+ b/l lower extremity edema, slightly worse on the left. NEUROLOGICAL: Awake and alert. No obvious cranial nerve deficits. Motor grossly within normal limits. Normal speech. PSYCHIATRIC: Appropriate mood and affect; insight and judgment normal. Medications and IVs Current Medications Medications (Trade) Dose Ordered Sig/Jason Route Start Time Stop Time Status Last Admin (D50w (Vial) Inj) 25 ml UNSCH PRN IV PUSH 12/17/16 16:15 12/20/16 05:15 (Glucagon Inj) 1 mg UNSCH PRN OTHER 12/17/16 16:15 (NS Flush) 2 ml UNSCH PRN FLUSH 12/17/16 16:15 (NS Flush) 2 ml BID FLUSH 12/17/16 21:00 12/18/16 21:24 (Zofran Inj) 4 mg Q6H PRN IVP 12/17/16 16:15 (Dulcolax Supp) 10 mg DAILY PRN AL 12/17/16 16:15 (Milk Of Magnesia Liq) 30 ml Q12H PRN PO 12/17/16 16:15 (Senokot) 17.2 mg Q12H PRN PO 12/17/16 16:15 (Morphine Inj) 2 mg Q3H PRN IV 12/17/16 16:15 (Ultram) 50 mg Q4H PRN PO 12/17/16 16:15 12/17/16 21:40 (Ultram) 100 mg Q4H PRN PO 12/17/16 16:15 12/20/16 06:13 (Narcan Inj) 0.4 mg UNSCH PRN IV 12/17/16 16:15 (Protonix) 40 mg DAILY PO 12/18/16 09:00 12/19/16 09:56 (Lactinex) 1 tab TID PO 12/17/16 18:00 12/19/16 18:32 (Ferrous Sulfate) 325 mg DAILY PO 12/18/16 09:00 12/19/16 10:01 Furosemide 20 mg 20 mg DAILY PO 12/18/16 09:00 12/19/16 09:56 Heparin Sodium/ Dextrose 250 ml @ 0 mls/hr TITRATE IV 12/18/16 20:45 12/19/16 19:41 (D5-Lr Inj) 1,000 ml @ 20 mls/hr Q24H IV 12/19/16 10:27 12/20/16 10:26 (Coumadin) 2 mg DAILY@16 PO 12/19/16 16:00 Miscellaneous Information ALL NURSING DEPARTME... UNSCH PRN XX 12/19/16 11:15 12/20/16 11:14 Urinary Catheter: No Vascular Central Line Catheter: No A/P Problem List: (1) Abdominal pain ICD Code: R10.9 Status: Acute (2) Hepatocellular carcinoma ICD Code: C22.0 Status: Acute (3) Portal vein thrombosis ICD Code: I81 Status: Acute (4) Pulmonary emboli ICD Code: I26.99 Status: Acute Assessment and Plan 66-year-old female with a past medical history of hepatitis C, cirrhosis, thrombocytopenia who presented for abdominal pain Abdominal pain, new diagnosis of suspected Hepatocellular Carcinoma with Metastasis; Liver/Lung masses: -Imaging reviewed: CT abd/pelvis with cirrhotic liver with right lobe liver mass suspicious for hepatocellular carcinoma, right portal vein thrombus; innumerable pulmonary nodules suspicious for metastatic disease; moderate volume of free fluid in the abdomen/pelvis; splenomegaly and esophageal varices ; cholelithiasis; left uterine leiomyoma. -Afebrile, no leukocytosis; Abdomen soft, nontender on exam. S/p IV Zosyn in ED however no signs of SBP at this time. -Abdominal U/S revealed not enough ascites for paracentesis -Gastroenterology on board, plan for EGD/colonoscopy today 12/20 -Pain control with tramadol as needed. Lactinex. Protonix. Continue Flagyl. -AFP elevated -Consult Oncology, discussed with Dr. Ogden, appreciate recommendations -Palliative care consult, appreciate assistance Pulmonary Embolism and Portal Vein Thrombus: Chest CT with filling defect in both pulmonary arteries characteristic of pulmonary embolic disease. Oncology on board. Continue on IV Heparin Drip for now, plan to transition to Coumadin after GI procedures completed. Hepatitis C/cirrhosis/thrombocytopenia: Chronic. Continue furosemide and ferrous sulfate. Hyperglycemia: Past history of diabetes mellitus, on no meds currently. Random glucose 117, fasting 84. Hemoglobin A1c 5.6. SSI with Accu-Cheks. DVT prophylaxis: SCDs, on Heparin drip Written by Alecia Alexander, acting as scribe for Dr. Martínez on 12/20/16 at 08:20. The documentation accurately reflects the work performed [id number] by me Dr. Martínez on 12/20/16 at 08:20. Problem Qualifiers (1) Abdominal pain: Qualified Code: R10.9 - Abdominal pain, unspecified location Alecia Alexander PA-C Dec 20, 2016 08:22 Melva Martínez MD Dec 20, 2016 19:11
[2016-12-20] MEDS: FERROUS SULFATE 325 MG (65 MG ELEMENTAL IRON) TAB PO SCH (09:00)
[2016-12-20] MEDS: PANTOPRAZOLE SOD 40 MG DELAYED RELEASE TAB PO SCH (09:25)
[2016-12-20] MEDS: SODIUM CHLORIDE 0.9% FLUSH 5 ML FLUSH FLUSH SCH ×2 (09:25→22:08)
[2016-12-20] MEDS: LACTOBACILLUS ACIDOPHILUS TAB PO SCH ×3 (09:25→17:25)
[2016-12-20] MEDS: FUROSEMIDE 20 MG TAB PO SCH (09:25)
[2016-12-20] MEDS: DEXTROSE 5%-LACTATED RING INJ 1,000 ML IV SCH (09:37)
--- NOTE | 2016-12-20 12:43 | HHI.HCPN ---
Reason for visit a. To assist with evaluation and management of symptoms including: Pain, Anxiety, Diarrhea b. To assist medical decision maker(s) with: better understanding of current medical conditions; weighing benefits/burdens of medical treatment options; making medical treatment decisions. . Subjective/Interval History Delayed entry, patient seen at 1100. Follow up visit for pain, anxiety and diarrhea. Met with patient and family 2 daughters, 2 sisters, niece, and friend ) at patient's bedside to discuss the patient's newly diagnosed stage IV metastatic hepatocellular carcinoma. Reviewed diagnostic results and associated poor prognosis. * Tumor marker AFP: 2896.5 * MRI abdomen showed 2 hepatic masses involving the right lobe of the liver with signal characteristics suggesting multifocal hepatocellular carcinoma in this patient with cirrhosis. There is a tumor thrombus extending into the accessory right hepatic vein and down the IVC slightly there is a complete thrombosis of the right portal vein with some nonocclusive thrombus involving the main portal vein. Biliary dilatation involving the right hepatic lobe. Cholelithiasis, splenomegaly, small volume ascites and tiny bilateral pleural effusions were also noted. * CT chest showed multiple bilateral subcentimeter pulmonary nodules characteristic of pulmonary metastatic disease in this patient with known liver masses. Filling defects in the pulmonary arteries characteristic of pulmonary embolic disease. There was trace right pleural fluid and mild ascites noted Presented to tumor board on 12/19/16. Liver biopsy was not recommended since a diagnosis can be made based on imaging and elevated AFP. Per oncology, patient may be a candidate for Nexavar. Patient has no complaints, denies pain on exam but reports continued right- sided back pain. Patient had been medicated with 100mg tramadol 30 minutes prior. She has had approximately 4 doses (tramadol 100mg) in the past 24 hours. EGD and colonoscopy later today. Pulmonary embolism and portal vein thrombosis CT chest with filling defect in both pulmonary arteries characteristic of pulmonary embolic disease. Patient was started on a IV heparin drip (being held for procedures) and will transition to Coumadin after GI procedures are completed. Patient will likely transition to hospice upon discharge, but would like to wait until she is able to safely transition to oral anticoagulation therapy - and Dr. Ogden are aware. . Family/friend interactions Met with patient and family 2 daughters, 2 sisters, niece, and friend) at patient's bedside to discuss the patient's newly diagnosed stage IV metastatic hepatocellular carcinoma. Reviewed diagnostic results and associated poor prognosis. . Advance Directives Advance Directive Specifics Date completed: 09/18/17 . Health Care Surrogate(s): Patient's daughter, Maya Borrero, is designated as the healthcare surrogate. Significant change in goals: Patient will likely transition to hospice upon discharge, but would like to wait until she is able to safely transition to oral anticoagulation therapy. . Objective Vital Signs Date Time Temp Pulse Resp B/P Pulse Ox O2 Delivery O2 Flow Rate FiO2 12/20/16 12:13 18 12/20/16 12:04 98.2 89 18 139/93 96 12/20/16 09:39 86 12/20/16 08:14 98.0 87 18 139/66 93 12/20/16 07:38 82 12/20/16 05:00 98.0 68 21 148/76 97 12/20/16 00:09 86 12/19/16 23:41 98.8 88 21 147/63 98 12/19/16 21:46 98.0 87 18 147/74 98 . Physical Exam CONSTITUTIONAL/GENERAL: This is an adequately nourished patient, in no apparent distress. TUBES/LINES/DRAINS: PIV x 1 SKIN: No jaundice, rashes, or lesions. No wounds seen anteriorly. Skin is warm and dry, color within normal limits for ethnicity. HEAD: Atraumatic. Normocephalic. EYES: Pupils equal and round and reactive. No scleral icterus. No injection or drainage. Fundi not examined. ENT: Hearing grossly normal. Nose without bleeding or purulent drainage. NECK: Trachea midline. Supple, nontender. No palpable thyroid enlargement or nodularity. CARDIOVASCULAR: Regular rate and rhythm without murmurs, gallops, or rubs. No JVD. Peripheral pulses symmetric. RESPIRATORY/CHEST: Symmetric, unlabored respirations. Clear to auscultation. Breath sounds equal bilaterally. No wheezes, rales, or rhonchi. GASTROINTESTINAL: Abdomen slightly distended, tender to palpation. Bowel sounds present. GENITOURINARY: Without palpable bladder distension. MUSCULOSKELETAL: Extremities without clubbing, cyanosis, or edema. No mottling or clubbing. LYMPHATICS: No palpable cervical or supraclavicular adenopathy. NEUROLOGICAL: Awake and alert. Follows commands. Cognitively sharp. Moves all extremities. PSYCHIATRIC: No obvious anxiety/depression. no apparent hallucinations or other psychotic thought process. . Diagnostic Tests Laboratory Laboratory Tests Test 12/17/16 12/18/16 12/18/16 12/19/16 20:18 04:50 23:47 03:00 Tumor Marker Alpha Fetoprotein 2896.5 NG/ML (0.5-8.0) White Blood Count 6.5 TH/MM3 5.8 TH/MM3 (4.0-11.0) (4.0-11.0) Red Blood Count 4.15 MIL/MM3 3.86 MIL/MM3 (4.00-5.30) (4.00-5.30) Hemoglobin 12.0 GM/DL 11.0 GM/DL (11.6-15.3) (11.6-15.3) Hematocrit 36.7 % 34.0 % (35.0-46.0) (35.0-46.0) Mean Corpuscular Volume 88.3 FL 88.0 FL (80.0-100.0) (80.0-100.0) Mean Corpuscular Hemoglobin 28.8 PG 28.4 PG (27.0-34.0) (27.0-34.0) Mean Corpuscular Hemoglobin 32.6 % 32.3 % Concent (32.0-36.0) (32.0-36.0) Red Cell Distribution Width 16.1 % 15.9 % (11.6-17.2) (11.6-17.2) Platelet Count 98 TH/MM3 78 TH/MM3 (150-450) (150-450) Mean Platelet Volume 11.8 FL 12.0 FL (7.0-11.0) (7.0-11.0) Neutrophils (%) (Auto) 78.1 % (16.0-70.0) Lymphocytes (%) (Auto) 8.0 % (9.0-44.0) Monocytes (%) (Auto) 11.2 % (0.0-8.0) Eosinophils (%) (Auto) 1.6 % (0.0-4.0) Basophils (%) (Auto) 1.1 % (0.0-2.0) Neutrophils # (Auto) 5.1 TH/MM3 (1.8-7.7) Lymphocytes # (Auto) 0.5 TH/MM3 (1.0-4.8) Monocytes # (Auto) 0.7 TH/MM3 (0-0.9) Eosinophils # (Auto) 0.1 TH/MM3 (0-0.4) Basophils # (Auto) 0.1 TH/MM3 (0-0.2) CBC Comment AUTO DIFF Differential Comment AUTO DIFF CONFIRMED Platelet Estimate LOW (NORMAL) Platelet Morphology Comment ENLARGED (NORMAL) Tear Drop Cells 1+ (NORMAL) Ovalocytes 1+ (NORMAL) Keratocytes OCC (NORMAL) Sodium Level 139 MEQ/L (136-145) Potassium Level 4.5 MEQ/L (3.5-5.1) Chloride Level 107 MEQ/L (98-107) Carbon Dioxide Level 25.9 MEQ/L (21.0-32.0) Anion Gap 6 MEQ/L (5-15) Blood Urea Nitrogen 15 MG/DL (7-18) Creatinine 0.70 MG/DL (0.50-1.00) Estimat Glomerular Filtration 83 ML/MIN (>89) Rate Random Glucose 84 MG/DL (74-106) Calcium Level 9.1 MG/DL (8.5-10.1) Prothrombin Time 14.5 SEC (9.8-11.6) Prothromb Time International 1.3 RATIO Ratio Activated Partial 68.9 SEC Thromboplast Time (24.3-30.1) Stool C. difficile Toxin (PCR) NEGATIVE (NEGATIVE) Stl C. difficile Toxin PRESUMPTIVE Epiderm 027 NEGATIVE (NEGATIVE) Test 12/19/16 12/19/16 12/19/16 12/19/16 03:18 05:53 09:52 12:50 Activated Partial 90.3 SEC 71.4 SEC 46.9 SEC Thromboplast Time (24.3-30.1) (24.3-30.1) (24.3-30.1) White Blood Count 5.1 TH/MM3 (4.0-11.0) Red Blood Count 4.02 MIL/MM3 (4.00-5.30) Hemoglobin 11.8 GM/DL (11.6-15.3) Hematocrit 35.0 % (35.0-46.0) Mean Corpuscular Volume 87.1 FL (80.0-100.0) Mean Corpuscular Hemoglobin 29.3 PG (27.0-34.0) Mean Corpuscular Hemoglobin 33.7 % Concent (32.0-36.0) Red Cell Distribution Width 16.2 % (11.6-17.2) Platelet Count 78 TH/MM3 (150-450) Mean Platelet Volume 12.2 FL (7.0-11.0) Neutrophils (%) (Auto) 77.5 % (16.0-70.0) Lymphocytes (%) (Auto) 8.4 % (9.0-44.0) Monocytes (%) (Auto) 10.5 % (0.0-8.0) Eosinophils (%) (Auto) 3.1 % (0.0-4.0) Basophils (%) (Auto) 0.5 % (0.0-2.0) Neutrophils # (Auto) 4.0 TH/MM3 (1.8-7.7) Lymphocytes # (Auto) 0.4 TH/MM3 (1.0-4.8) Monocytes # (Auto) 0.5 TH/MM3 (0-0.9) Eosinophils # (Auto) 0.2 TH/MM3 (0-0.4) Basophils # (Auto) 0.0 TH/MM3 (0-0.2) CBC Comment AUTO DIFF Differential Comment AUTO DIFF CONFIRMED Platelet Estimate LOW (NORMAL) Platelet Morphology Comment ENLARGED (NORMAL) Tear Drop Cells 1+ (NORMAL) Ovalocytes 1+ (NORMAL) Keratocytes OCC (NORMAL) Test 12/19/16 12/20/16 20:32 02:50 Activated Partial 48.1 SEC 36.0 SEC Thromboplast Time (24.3-30.1) (24.3-30.1) White Blood Count 5.6 TH/MM3 (4.0-11.0) Red Blood Count 4.15 MIL/MM3 (4.00-5.30) Hemoglobin 11.9 GM/DL (11.6-15.3) Hematocrit 35.9 % (35.0-46.0) Mean Corpuscular Volume 86.6 FL (80.0-100.0) Mean Corpuscular Hemoglobin 28.6 PG (27.0-34.0) Mean Corpuscular Hemoglobin 33.0 % Concent (32.0-36.0) Red Cell Distribution Width 16.2 % (11.6-17.2) Platelet Count 86 TH/MM3 (150-450) Mean Platelet Volume 11.5 FL (7.0-11.0) Neutrophils (%) (Auto) 78.0 % (16.0-70.0) Lymphocytes (%) (Auto) 8.6 % (9.0-44.0) Monocytes (%) (Auto) 10.2 % (0.0-8.0) Eosinophils (%) (Auto) 2.7 % (0.0-4.0) Basophils (%) (Auto) 0.5 % (0.0-2.0) Neutrophils # (Auto) 4.4 TH/MM3 (1.8-7.7) Lymphocytes # (Auto) 0.5 TH/MM3 (1.0-4.8) Monocytes # (Auto) 0.6 TH/MM3 (0-0.9) Eosinophils # (Auto) 0.2 TH/MM3 (0-0.4) Basophils # (Auto) 0.0 TH/MM3 (0-0.2) CBC Comment AUTO DIFF Differential Comment AUTO DIFF CONFIRMED Platelet Estimate LOW (NORMAL) Platelet Morphology Comment ENLARGED (NORMAL) Ovalocytes 1+ (NORMAL) Acanthocytes OCC (NORMAL) Keratocytes OCC (NORMAL) Prothrombin Time 13.4 SEC (9.8-11.6) Prothromb Time International 1.2 RATIO Ratio Sodium Level 135 MEQ/L (136-145) Potassium Level 4.1 MEQ/L (3.5-5.1) Chloride Level 101 MEQ/L (98-107) Carbon Dioxide Level 24.7 MEQ/L (21.0-32.0) Anion Gap 9 MEQ/L (5-15) Blood Urea Nitrogen 11 MG/DL (7-18) Creatinine 0.46 MG/DL (0.50-1.00) Estimat Glomerular Filtration 135 ML/MIN Rate (>89) Random Glucose 72 MG/DL (74-106) Calcium Level 9.4 MG/DL (8.5-10.1) Magnesium Level 1.5 MG/DL (1.5-2.5) Total Creatine Kinase 80 U/L (26-192) Troponin I LESS THAN 0.02 NG/ML (0.02-0.05) . Result Diagram: 12/20/16 0250 12/20/16 025 Microbiology Microbiology Date/Time Procedure Status Source Growth 12/19/16 03:00 Stool Pus (YAMIL) - Final Complete Stool Stool NO WBC'S SEEN 12/19/16 03:00 Stool Occult Blood ([facility]IL) - Final Complete Stool Stool HEMOCCULT POSITIVE . Imaging Last [address] 12/18/16 0000 Signed Impressions: Service Date/Time: Sunday, December 18, 2016 18:02 - CONCLUSION: 1. Multiple bilateral subcentimeter pulmonary nodules characteristic of pulmonary metastatic disease in patient with known liver masses. 2. Filling defects in both pulmonary arteries characteristic of pulmonary embolic disease. 3. Trace right pleural fluid. Mild ascites. Alfredo Rivas MD Abdomen Ultrasound 12/18/16 0000 Signed Impressions: Service Date/Time: Saturday, December 17, 2016 17:42 - CONCLUSION: There is not enough ascites for safe paracentesis.. Lucien Fuentes MD FACR Abdomen MRI 12/18/16 0000 Signed Impressions: Service Date/Time: Sunday, December 18, 2016 11:10 - CONCLUSION: 1. 2 hepatic masses involving the right lobe of the liver as detailed above with signal characteristics suggesting multifocal hepatocellular carcinoma in this patient with cirrhosis. There is tumor thrombus extending into an accessory right hepatic vein and down the IVC slightly. There is complete thrombosis of the right portal vein with some nonocclusive thrombus involving the main portal vein. Biliary dilatation involving the right hepatic lobe. 2. Cholelithiasis. 3. Splenomegaly. 4. Small volume ascites. 5. Tiny bilateral pleural effusions. Adam Byrne Jr., MD . Assessment and Plan Disease Oriented Problem List: (1) Rib pain on right side (2) SBP (spontaneous bacterial peritonitis) (3) Abdominal pain (4) Portal vein thrombosis (5) Hepatocellular carcinoma (6) Pulmonary emboli (7) Thrombocytopenia (8) Cirrhosis (9) Fecal occult blood test positive (10) Metastatic hepatocellular carcinoma to lung Symptom Scale: (1) Pain 0-10 Scale: 3 Comment: Patient reporting right-sided abdominal pain, greater in the lower quadrant; mid epigastric pain; new onset right-sided lower back pain. Pain is likely secondary to metastatic hepatocellular carcinoma, although patient does have a history of chronic back pain/RAVI. Current orders for PRN tramadol and IV morphine, being sparingly used. Patient states pain has improved a great deal, but was "excruciating " when she presented to the ED on 12/17/15. Discussed the importance of requesting pain medication before pain becomes unbearable- it is easier to maintain her acceptable pain level than recover from an acute pain crisis. Palliative care will monitor PRN requirements and make recommendations as indicated. . (2) Diarrhea (3) Anxiety Pertinent Non-Medical Issues Psychosocial: Patient was born at [place] and graduated from [employer]. She has 4 sister, one from renal carcinoma. She is . 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 She has 2 daughters, Maya Beth, who live locally. Her 27 -year-old granddaughter (Reanna) has cerebral palsy and is light of the patient' s life. Spiritual: Islam russ Legal: Patient's daughter, Maya Borrero, is designated as the health care surrogate. Ethical issues impacting care: No known ethical issues impacting care at this time. Important Contacts Maya Wise, daughter: [phone] . Prognosis Patient newly diagnosed with stage IV metastatic hepatocellular carcinoma to the lungs. Prognosis is very poor, life expectancy 3-6 months. . Code Status: Full Code Plan * FULL CODE * Decision-making: Patient has designated her daughter, Maya Borrero, as health care surrogate. Form completed 12/19/16. Copy placed in patient's paper chart. * Goals: Undetermined pending family meeting, patient will likely transition to hospice in the upcoming days. * Palliative care contact information provided to patient and her 2 daughter. * Patient newly diagnosed with stage IV metastatic hepatocellular carcinoma to the lungs. Prognosis is very poor, hospice appropriate. * Discussed with Alecia Alexander PA-C * Pulmonary embolism and portal vein thrombosisCT chest with filling defect in both pulmonary arteries characteristic of pulmonary embolic disease. Patient was started on a IV heparin drip (being held for procedures) and will transition to Coumadin after GI procedures are completed. Patient will likely transition to hospice upon discharge, but would like to wait until she is able to safely transition to oral anticoagulation therapy - and Dr. Ogden are aware. * Symptom managementpain: Patient reporting right-sided abdominal pain, greater in the lower quadrant; mid epigastric pain; new onset right-sided lower back pain. Pain is likely secondary to metastatic hepatocellular carcinoma, although patient does have a history of chronic back pain/RAVI. Current orders for PRN tramadol and IV morphine, being sparingly used. Patient states pain has improved a great deal, but was "excruciating " when she presented to the ED on . Discussed the importance of requesting pain medication before pain becomes unbearable- it is easier to maintain her acceptable pain level than recover from an acute pain crisis. Palliative care will monitor PRN requirements and make recommendations as indicated. * Met with patient and family 2 daughters, 2 sisters, niece, and friend) at patient's bedside to discuss the patient's newly diagnosed stage IV metastatic hepatocellular carcinoma. Reviewed diagnostic results and associated poor prognosis. * Patient will likely transition to hospice in the upcoming days, will re- address tomorrow and possibly set up hospice consult for Sunday12/22/16. * EGD/colonoscopy scheduled today. * PATIENT'S DAUGHTER IS REQUESTING TO SPEAK WITH ONCOLOGY. DAUGHTER EMY'S # * Palliative care will continue to follow throughout hospitalization to establish trust, assist with symptom management and clarification of medical treatment goals. . Attestation To help prompt me to consider important information that might be impacting today's encounter and assessment, information from prior notes written by myself or my colleagues may have been "brought forward" into today's note. My signature on this note, however, is an attestation that I personally performed the exam, history, and/or decision-making noted today, and, unless otherwise indicated, the interactions with patient, family, and staff as well as the review of records all occurred today. I also attest that the listed assessment and stated plan reflect my best clinical judgment today based on the combination of historical information, prior notes, and today's exam/ interactions. When time spent is documented, it refers only to time spent today by the signer, or if indicated, combined time spent today by collaborating physician/nurse practitioner. . Priyanka Armstrong Dec 20, 2016 12:43
--- NOTE | 2016-12-20 14:32 | HHI.GIFU ---
Subjective Remarks Pt ding well, no complaints. Tolerated bowel prep for procedures today. Objective Vitals I&O Vital Signs Date Time Temp Pulse Resp B/P Pulse Ox O2 Delivery O2 Flow Rate FiO2 12/20/16 12:13 18 12/20/16 12:04 98.2 89 18 139/93 96 12/20/16 09:39 86 12/20/16 08:14 98.0 87 18 139/66 93 12/20/16 07:38 82 12/20/16 05:00 98.0 68 21 148/76 97 12/20/16 00:09 86 12/19/16 23:41 98.8 88 21 147/63 98 12/19/16 21:46 98.0 87 18 147/74 98 I/O 12/19/16 12/19/16 12/19/16 12/20/16 12/20/16 12/20/16 07:00 15:00 23:00 07:00 15:00 23:00 Intake Total 240 ml Balance 240 ml Intake Oral 240 ml # Voids 2 # Bowel Movements 1 Laboratory Laboratory Tests Test 12/19/16 12/20/16 20:32 02:50 Activated Partial 48.1 36.0 Thromboplast Time White Blood Count 5.6 Red Blood Count 4.15 Hemoglobin 11.9 Hematocrit 35.9 Mean Corpuscular Volume 86.6 Mean Corpuscular Hemoglobin 28.6 Mean Corpuscular Hemoglobin 33.0 Concent Red Cell Distribution Width 16.2 Platelet Count 86 Mean Platelet Volume 11.5 Neutrophils (%) (Auto) 78.0 Lymphocytes (%) (Auto) 8.6 Monocytes (%) (Auto) 10.2 Eosinophils (%) (Auto) 2.7 Basophils (%) (Auto) 0.5 Neutrophils # (Auto) 4.4 Lymphocytes # (Auto) 0.5 Monocytes # (Auto) 0.6 Eosinophils # (Auto) 0.2 Basophils # (Auto) 0.0 CBC Comment AUTO DIFF Differential Comment AUTO DIFF CONFIRMED Platelet Estimate LOW Platelet Morphology Comment ENLARGED Ovalocytes 1+ Acanthocytes OCC Keratocytes OCC Prothrombin Time 13.4 Prothromb Time International 1.2 Ratio Sodium Level 135 Potassium Level 4.1 Chloride Level 101 Carbon Dioxide Level 24.7 Anion Gap 9 Blood Urea Nitrogen 11 Creatinine 0.46 Estimat Glomerular Filtration 135 Rate Random Glucose 72 Calcium Level 9.4 Magnesium Level 1.5 Total Creatine Kinase 80 Troponin I LESS THAN 0.02 Date/Time Procedure Status Source Growth 12/19/16 03:00 Stool Pus (YAMIL) - Final Complete Stool Stool NO WBC'S SEEN 12/19/16 03:00 Stool Occult Blood (YAMIL) - Final Complete Stool Stool HEMOCCULT POSITIVE Physical Exam HEENT: Pupils round and reactive to light; normocephalic; atraumatic; no jaundice. Throat is clear. NECK: Neck is supple, no JVD, no lymphadenopathy. ABDOMEN: Soft, mildly distended, nontender; no hepatosplenomegaly; bowel sounds are present in all four quadrants. EXTREMITIES: No clubbing, cyanosis, or edema. SKIN: Normal; no rash; no jaundice. 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 Assessment and Plan Assessment: (1) Fecal occult blood test positive (2) Cirrhosis (3) Hepatocellular carcinoma Plan 1. Hepatocellular carcinoma - MRI with radiological features of metastatic HCC. two lesions seen, one large (do not give exact measurements on MRI report but CT called it 6.0 cmm) and smaller one 2.9cm with adjacent tumor thrombus and multiple subcentimeter pulmonary nodules. Recommend against liver biopsy since we can make diagnosis based on imaging and elevated AFP. - Oncology on board, maybe candidate for Nexavar 2. Pulmonary embolisms - noted on chest CT - started on heparin drip, plan to transition to warfarin after procedures 3. fecal occult blood possible/ mild anemia - monitor hb daily, transfuse as needed to keep hb > 7 - EGD/colonoscopy today before starting chronic anticoagulation with warfarin - NPO for procedures 4. Hep C induced cirrhosis - low MELD, not candidate for liver tx due to metastatic HCC - plan to perform EGD for variceal screening - Minimal ascites, unable to perform paracentesis. Continue low Na diet and low dose diuretics - no significant hepatic encephalopathy, continue to monitor [place]Vijay Duque MD Dec 20, 2016 14:32
[2016-12-20] MEDS ORDERED: PROPOFOL 200 MG/20 ML AMP IV ONE (15:11)
[2016-12-20] MEDS: WARFARIN SOD 2 MG TAB PO SCH (16:00)
--- NOTE | 2016-12-20 16:06 | PD.PROCEDR ---
GI Procedure PROCEDURE DATE: Dec 20, 2016 INDICATION FOR PROCEDURE cirrhosis, fecal occult blood positive PROCEDURE: The procedure, risks and benefits were discussed with Ms. Merino and informed consent was obtained. Anesthesia sedated her with Diprivan. She was placed in the left lateral decubitus position. EGD: The Pentax videoscope was introduced through the oropharynx and advanced to the second portion of the duodenum under direct visualization. Retroflexion was performed in the stomach. FINDINGS: - large varices in distal third of esophagus. Variceal band ligation performed x 3. - moderate portal hypertensive gastropathy in stomach - normal duodenum Colonoscopy: The Pentax videoscope was introduced through the rectum and advanced to []. Retroflexion was performed in the rectum. Colonic prep was [] FINDINGS: - one 6mm sessile polyp found in the cecum. Cold snare polypectomy performed. - moderate internal hemorrhoids ESTIMATED BLOOD LOSS: - minimal COMPLICATIONS: - none IMPRESSION: - large varices. EVL x 3 - portal HTN gastropathy - one 6mm polyp in the cecum. Cold snare polypectomy performed - internal hemorrhoids PLAN: - return to floor - high fiber diet - hold anticoagulation for 48 hours - await path report - Protonix 40mg PO BId x 2 weeks - start Nadolol 20mg PO daily, titrate to HR 55-65 bpm - repeat EGD in 2-4 weeks - surveillance colonoscopy in 5 years, Vijay Schaefer MD Dec 20, 2016 16:06
--- NOTE | 2016-12-20 17:18 | PD.ONC.PN ---
Subjective Subjective Remarks No abdominal pain. No CP/SOB. No bleeding reported. Objective Data Date Time Temp Pulse Resp B/P Pulse Ox O2 Delivery O2 Flow Rate FiO2 12/20/16 16:05 79 16 131/59 94 12/20/16 15:55 98.5 81 15 131/59 97 12/20/16 12:13 18 12/20/16 12:04 98.2 89 18 139/93 96 12/20/16 09:39 86 12/20/16 08:14 98.0 87 18 139/66 93 12/20/16 07:38 82 12/20/16 05:00 98.0 68 21 148/76 97 12/20/16 00:09 86 12/19/16 23:41 98.8 88 21 147/63 98 12/19/16 21:46 98.0 87 18 147/74 98 12/20/16 12/20/16 12/20/16 07:00 15:00 23:00 Intake Total 100 ml Balance 100 ml Result Diagram: 12/20/160 12/20/16 0250 Laboratory Results Laboratory Tests Test 12/19/16 12/20/16 20:32 02:50 Activated Partial 48.1 SEC 36.0 SEC Thromboplast Time White Blood Count 5.6 TH/MM3 Red Blood Count 4.15 MIL/MM3 Hemoglobin 11.9 GM/DL Hematocrit 35.9 % Mean Corpuscular Volume 86.6 FL Mean Corpuscular Hemoglobin 28.6 PG Mean Corpuscular Hemoglobin 33.0 % Concent Red Cell Distribution Width 16.2 % Platelet Count 86 TH/MM3 Mean Platelet Volume 11.5 FL Neutrophils (%) (Auto) 78.0 % Lymphocytes (%) (Auto) 8.6 % Monocytes (%) (Auto) 10.2 % Eosinophils (%) (Auto) 2.7 % Basophils (%) (Auto) 0.5 % Neutrophils # (Auto) 4.4 TH/MM3 Lymphocytes # (Auto) 0.5 TH/MM3 Monocytes # (Auto) 0.6 TH/MM3 Eosinophils # (Auto) 0.2 TH/MM3 Basophils # (Auto) 0.0 TH/MM3 CBC Comment AUTO DIFF Differential Comment AUTO DIFF CONFIRMED Platelet Estimate LOW Platelet Morphology Comment ENLARGED Ovalocytes 1+ Acanthocytes OCC Keratocytes OCC Prothrombin Time 13.4 SEC Prothromb Time International 1.2 RATIO Ratio Sodium Level 135 MEQ/L Potassium Level 4.1 MEQ/L Chloride Level 101 MEQ/L Carbon Dioxide Level 24.7 MEQ/L Anion Gap 9 MEQ/L Blood Urea Nitrogen 11 MG/DL Creatinine 0.46 MG/DL Estimat Glomerular Filtration 135 ML/MIN Rate Random Glucose 72 MG/DL Calcium Level 9.4 MG/DL Magnesium Level 1.5 MG/DL Total Creatine Kinase 80 U/L Troponin I LESS THAN 0.02 NG/ML Culture Results Microbiology Date/Time Procedure Status Source Growth 12/19/16 03:00 Stool Pus (YAMIL) - Final Complete Stool Stool NO WBC'S SEEN 12/19/16 03:00 Stool Occult Blood (YAMIL) - Final Complete Stool Stool HEMOCCULT POSITIVE Administered Medications Medications (Trade) Dose Ordered Sig/Jason Route PRN Reason Start Time Stop Time Status Last Admin Dose Admin Dextrose (D50w (Vial) Inj) 25 ml UNSCH PRN IV PUSH HYPOGLYCEMIA-SEE COMMENTS 12/17/16 16:15 12/20/16 05:15 IV Flush (NS Flush) 2 ml BID FLUSH 12/17/16 21:00 12/20/16 09:25 Tramadol HCl (Ultram) 50 mg Q4H PRN PO PAIN SCALE 3 TO 5 12/17/16 16:15 12/17/16 21:40 Tramadol HCl (Ultram) 100 mg Q4H PRN PO PAIN SCALE 6 TO 10 12/17/16 16:15 12/20/16 10:53 Pantoprazole Sodium (Protonix) 40 mg DAILY PO 12/18/16 09:00 12/20/16 09:25 Lactobacillus Acidophilus (Lactinex) 1 tab TID PO 12/17/16 18:00 12/20/16 09:25 Ferrous Sulfate (Ferrous Sulfate) 325 mg DAILY PO 12/18/16 09:00 12/20/16 09:00 Furosemide 20 mg 20 mg DAILY PO 12/18/16 09:00 12/20/16 09:25 Heparin Sodium/ Dextrose (Heparin-D5W Inj) 250 ml @ 0 mls/hr TITRATE IV 12/18/16 20:45 12/19/16 19:41 Objective Remarks GENERAL: Well-nourished, well-developed patient. Obese SKIN: Warm and dry. HEAD: Normocephalic. EYES: No scleral icterus. No injection or drainage. NECK: Supple, trachea midline. No JVD or lymphadenopathy. LYMPHATIC: No adenopathy. CARDIOVASCULAR: Regular rate and rhythm without murmurs. RESPIRATORY: Breath sounds equal bilaterally. No accessory muscle use. GASTROINTESTINAL: Abdomen soft, non-tender, distended. +BS EXTREMITIES: No cyanosis, or edema. MUSCULOSKELETAL: Adequate muscle tone. NEUROLOGICAL: No obvious focal deficit. Awake, alert, and oriented x3. PSYCHIATRIC: Appropriate mood and affect; insight and judgment normal. Assessment/Plan Problem List: (1) Hepatocellular carcinoma Status: Acute Plan: --fs faxed to npr. plan for outpatient follow up. possibly start Nexavar if patient wants to have treatment. She and her family is going to meet with palliative care meds to discuss goal of care. History: --presented with increased abdominal pain x several weeks. --afp elevated --Liver mass in the setting of cirrhosis and elevated alpha-fetoprotein most consistent with hepatocellular carcinoma. --CT ab/pelvis +cirrhotic liver with 6 x 3 cm right hepatic lobe mass. + evidence of thrombus in the right portal vein. +innumerable pulmonary nodules. --CT chest--multiple bilateral subcentimeter pulmonary nodules characteristic of pulmonary metastatic disease in patient with known liver masses. --With lung metastasis she will not be a candidate for a liver transplant. Treatment option would be Nexavar. I do not think she can have embolization due to the portal vein thrombosis. (2) Pulmonary emboli Status: Acute Plan: --on heparin-->coumadin --patient could be transitioned to Lovenox once ready for d/c (3) Portal vein thrombosis Status: Acute (4) Thrombocytopenia Status: Acute Plan: -- Chronic thrombocytopenia due to underlying cirrhosis and hypersplenism. --monitor for bleeding Assessment 66y/o with hepatocellular carcinoma --h/o hepatitis C and cirrhosis Diabetes mellitus. Hemorrhoid. Osteoporosis. Pneumonia. Osteoarthritis. Migraine headache. Chronic bronchitis Plan 1. Continue heparin and bridge to coumadin. 2. when ready for d/c could be changed to Lovenox 1mg/kg BID 3. Patient and family will meet with palliative care meds to discuss goal of care. Parviz Ogden MD Dec 20, 2016 17:18
[2016-12-21] VITALS (11 sets, daily range): BP systolic 128–166; BP diastolic 58–86; PULSE 68–95; RESP 16–20; TEMP 96.9–98.4; O2SAT 91–98
[2016-12-21] MEDS: traMADol HCL 50 MG TAB PO PRN ×4 (03:00→18:07)
[2016-12-21] MEDS: INSULIN ASPART SUPPLEMENTAL SCALE SQ SCH ×3 (06:43→21:00)
[2016-12-21 07:46] LABS: HEMATOCRIT 36.6 % (35.0-46.0); MEAN CELL VOLUME 87.8 FL (80.0-100.0); MEAN CORPUSCULAR HEMOGLOBIN 29.1 PG (27.0-34.0); MEAN CORPUSCULAR HGB CONC 33.1 % (32.0-36.0); PLATELET COUNT 91 TH/MM3 (150-450); RED BLOOD COUNT 4.17 MIL/MM3 (4.00-5.30); RED CELL DISTRIBUTION WIDTH 16.5 % (11.6-17.2)
[2016-12-21 07:52] LABS: REVIEW FLAG FINAL
[2016-12-21 07:53] LABS: INTERNATIONAL NORMALIZED RATIO 1.2 RATIO; PROTHROMBIN TIME - PATIENT 13.4 SEC (9.8-11.6)
--- NOTE | 2016-12-21 10:07 | HHI.GIFU ---
Subjective Remarks Pt doing well, no complaints today. Tolerating liquid diet. Objective Vitals I&O Vital Signs Date Time Temp Pulse Resp B/P Pulse Ox O2 Delivery O2 Flow Rate FiO2 12/21/16 09:23 96.9 89 18 166/71 93 12/21/16 04:00 97.4 95 18 148/70 91 12/21/16 00:06 97.6 92 20 160/70 95 12/20/16 20:30 81 12/20/16 19:43 97.6 93 20 144/72 95 12/20/16 18:25 18 12/20/16 16:05 79 16 131/59 94 12/20/16 15:55 98.5 81 15 131/59 97 12/20/16 12:04 98.2 89 18 139/93 96 I/O 12/20/16 12/20/16 12/20/16 12/21/16 12/21/16 12/21/16 07:00 15:00 23:00 07:00 15:00 23:00 Intake Total 100 ml Balance 100 ml Other 100 ml # Voids 3 Laboratory Laboratory Tests Test 12/21/16 06:30 White Blood Count 5.0 Red Blood Count 4.17 Hemoglobin 12.1 Hematocrit 36.6 Mean Corpuscular Volume 87.8 Mean Corpuscular Hemoglobin 29.1 Mean Corpuscular Hemoglobin 33.1 Concent Red Cell Distribution Width 16.5 Platelet Count 91 Mean Platelet Volume 12.0 Prothrombin Time 13.4 Prothromb Time International 1.2 Ratio Date/Time Procedure Status Source Growth 12/19/16 03:00 Stool Pus (YAMIL) - Final Complete Stool Stool NO WBC'S SEEN 12/19/16 03:00 Stool Occult Blood (YAMIL) - Final Complete Stool Stool HEMOCCULT POSITIVE Physical Exam HEENT: Pupils round and reactive to light; normocephalic; atraumatic; no jaundice. Throat is clear. NECK: Neck is supple, no JVD, no lymphadenopathy. ABDOMEN: Soft, mildly distended, nontender; no hepatosplenomegaly; bowel sounds are present in all four quadrants. EXTREMITIES: No clubbing, cyanosis, or edema. SKIN: Normal; no rash; no jaundice. 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 Assessment and Plan Assessment: (1) Fecal occult blood test positive (2) Cirrhosis (3) Hepatocellular carcinoma Plan 1. Hepatocellular carcinoma - MRI with radiological features of metastatic HCC. two lesions seen, one large (do not give exact measurements on MRI report but CT called it 6.0 cmm) and smaller one 2.9cm with adjacent tumor thrombus and multiple subcentimeter pulmonary nodules. Recommend against liver biopsy since we can make diagnosis based on imaging and elevated AFP. - Oncology on board, maybe candidate for Nexavar 2. Esophageal varices - large varices noted on endoscopy, EVL x 3 performed - started nadolol 20mg PO daily, titrate to HR 55-65bpm - recommend protonix 40mg PO BID x 2 weeks to prevent bleeding from esophageal ulcers post banding - repeat EGD in 3-4 weeks recommended 3.Colon polyp - one 6mm polyp removed from cecum by cold snare polypectomy - await path report 4. Pulmonary embolisms/PVT - noted on imaging - previously on heparin drip, plan to transition to warfarin - concerns about chronic anticoagulation in patient with large varices with high risk of bleeding. Will discuss with hospitalist 5. Hep C induced cirrhosis - low MELD, not candidate for liver tx due to metastatic HCC - Minimal ascites, unable to perform paracentesis. Continue low Na diet and low dose diuretics - no significant hepatic encephalopathy, continue to monitor Vijay Schaefer MD Dec 21, 2016 10:07
--- NOTE | 2016-12-21 10:17 | HHI.PR ---
Subjective Remarks Says she has some wheezing, she has inhailers at home. Will give duonebs. Satting well on room air. Patient denies having any chest pain or sob. No n/v/d/ c. Deneis fevr or chills./ No cough. Objective Vitals Vital Signs Date Time Temp Pulse Resp B/P Pulse Ox O2 Delivery O2 Flow Rate FiO2 12/21/16 09:23 96.9 89 18 166/71 93 12/21/16 04:00 97.4 95 18 148/70 91 12/21/16 00:06 97.6 92 20 160/70 95 12/20/16 20:30 81 12/20/16 19:43 97.6 93 20 144/72 95 12/20/16 18:25 18 12/20/16 16:05 79 16 131/59 94 12/20/16 15:55 98.5 81 15 131/59 97 12/20/16 12:04 98.2 89 18 139/93 96 I/O 12/20/16 12/20/16 12/20/16 12/21/16 12/21/16 12/21/16 07:00 15:00 23:00 07:00 15:00 23:00 Intake Total 100 ml Balance 100 ml Other 100 ml # Voids 3 Result Diagram: 12/21/16 0630 12/20/16 0250 Imaging Last Impressions Chest CT 12/18/16 0000 Signed Impressions: Service Date/Time: Sunday, December 18, 2016 18:02 - CONCLUSION: 1. Multiple bilateral subcentimeter pulmonary nodules characteristic of pulmonary metastatic disease in patient with known liver masses. 2. Filling defects in both pulmonary arteries characteristic of pulmonary embolic disease. 3. Trace right pleural fluid. Mild ascites. Alfredo Rivas MD Abdomen Ultrasound 12/18/16 0000 Signed Impressions: Service Date/Time: Saturday, December 17, 2016 17:42 - CONCLUSION: There is not enough ascites for safe paracentesis.. Lucien Fuentes MD FACR Abdomen MRI 12/18/16 0000 Signed Impressions: Service Date/Time: Sunday, December 18, 2016 11:10 - CONCLUSION: 1. 2 hepatic masses involving the right lobe of the liver as detailed above with signal characteristics suggesting multifocal hepatocellular carcinoma in this patient with cirrhosis. There is tumor thrombus extending into an accessory right hepatic vein and down the IVC slightly. There is complete thrombosis of the right portal vein with some nonocclusive thrombus involving the main portal vein. Biliary dilatation involving the right hepatic lobe. 2. Cholelithiasis. 3. Splenomegaly. 4. Small volume ascites. 5. Tiny bilateral pleural effusions. Adam Byrne Jr., MD Abdomen/Pelvis CT 12/17/16 1148 Signed Impressions: Service Date/Time: Saturday, December 17, 2016 13:20 - CONCLUSION: 1. Cirrhotic liver with right lobe liver mass suspicious for hepatocellular carcinoma. There is diffuse heterogeneous enhancement of the right lobe with thrombus in the right portal vein. 2. There are innumerable pulmonary nodules in the lung bases suspicious for metastatic disease. 3. Moderate volume of the free fluid in the abdomen and pelvis. Other findings suggesting portal hypertension including splenomegaly and esophageal varices. 4. Nonacute findings include cholelithiasis and 2 cm left uterine mass likely representing a leiomyoma. Rahul Gan MD Objective Remarks GENERAL: Well-nourished, well-developed female patient in NAD. SKIN: Warm and dry. No rash. HEAD: Normocephalic. Atraumatic. NECK: Supple. Trachea midline. CARDIOVASCULAR: Regular rate and rhythm. S1, S2 noted. 2/6 holosystolic murmur. RESPIRATORY: No accessory muscle use. Clear to auscultation. Breath sounds equal bilaterally. GASTROINTESTINAL: Abdomen soft, non-tender, nondistended. Normoactive bowel sounds x4. MUSCULOSKELETAL: No obvious deformities. 1+ b/l lower extremity edema, slightly worse on the left. NEUROLOGICAL: Awake and alert. No obvious cranial nerve deficits. Motor grossly within normal limits. Normal speech. PSYCHIATRIC: Appropriate mood and affect; insight and judgment normal. A/P Problem List: (1) Abdominal pain ICD Code: R10.9 Status: Acute (2) Hepatocellular carcinoma ICD Code: C22.0 Status: Acute (3) Portal vein thrombosis ICD Code: I81 Status: Acute (4) Pulmonary emboli ICD Code: I26.99 Status: Acute Assessment and Plan 66-year-old female with a past medical history of hepatitis C, cirrhosis, thrombocytopenia who presented for abdominal pain Abdominal pain, new diagnosis of suspected Hepatocellular Carcinoma with Metastasis; Liver/Lung masses: -Imaging reviewed: CT abd/pelvis with cirrhotic liver with right lobe liver mass suspicious for hepatocellular carcinoma, right portal vein thrombus; innumerable pulmonary nodules suspicious for metastatic disease; moderate volume of free fluid in the abdomen/pelvis; splenomegaly and esophageal varices ; cholelithiasis; left uterine leiomyoma. -Afebrile, no leukocytosis; Abdomen soft, nontender on exam. S/p IV Zosyn in ED however no signs of SBP at this time. -Abdominal U/S revealed not enough ascites for paracentesis -Gastroenterology on board, plan for EGD/colonoscopy today 12/20 -Pain control with tramadol as needed. Lactinex. Protonix. Continue Flagyl. -AFP elevated -Consult Oncology, discussed with Dr. Ogden, appreciate recommendations -Palliative care consult, appreciate assistance - add duonebs as patient is wheezing Esophageal varices - large varices noted on endoscopy, EVL x 3 performed - started nadolol 20mg PO daily, titrate to HR 55-65bpm - protonix 40mg PO BID x 2 weeks to prevent bleeding from esophageal ulcers post banding per Dr Espino GI - repeat EGD in 3-[address] Espino Colon polyp- one 6mm polyp removed from cecum by cold snare polypectomy by Dr Espino GI specialist. Path report pending Pulmonary Embolism and Portal Vein Thrombus: Chest CT with filling defect in both pulmonary arteries characteristic of pulmonary embolic disease. Oncology on board. DC IV Heparin and coumadin. Patient with varices and she is not a candidate for chemical prophylaxis as high risk of bleeding. Discussed with GI specialist Dr Espino, appreciate recommendations. Plan for IVC filter. Consult IR for IVC filter placement Hepatitis C/cirrhosis/thrombocytopenia: Chronic. Continue furosemide and ferrous sulfate. Hyperglycemia: Past history of diabetes mellitus, on no meds currently. Random glucose 117, fasting 84. Hemoglobin A1c 5.6. SSI with Accu-Cheks. DVT prophylaxis: SCDs, on Heparin drip DC when INR therapeutic and cleared by hem/onc Discussed with the patient and the nurse Discussed with Dr Espino GI specialist and palliative care service Problem Qualifiers (1) Abdominal pain: Qualified Code: R10.9 - Abdominal pain, unspecified location Melva Martínez MD Dec 21, 2016 10:17
[2016-12-21] MEDS: SODIUM CHLORIDE 0.9% FLUSH 5 ML FLUSH FLUSH SCH ×2 (10:44→21:26)
[2016-12-21] MEDS: PANTOPRAZOLE SOD 40 MG DELAYED RELEASE TAB PO SCH ×2 (10:46→21:26)
[2016-12-21] MEDS: FERROUS SULFATE 325 MG (65 MG ELEMENTAL IRON) TAB PO SCH (10:46)
[2016-12-21] MEDS: FUROSEMIDE 20 MG TAB PO SCH (10:46)
[2016-12-21] MEDS: LACTOBACILLUS ACIDOPHILUS TAB PO SCH ×3 (10:47→17:59)
[2016-12-21] MEDS: NADOLOL 20 MG TAB PO SCH (11:00)
[2016-12-21] MEDS ORDERED: RESP: ALBUTEROL 2.5 MG/IPRATROPIUM 0.5 MG NEB (PRN) NEB (13:45)
[2016-12-21] MEDS ORDERED: MIDAZOLAM HCL 2 MG/2 ML VIAL ONE (15:05)
--- NOTE | 2016-12-21 15:36 | PD.RAD ---
Post Procedure Progress Note Pre Procedure Diagnosis: (1) Fecal occult blood test positive (2) Metastatic hepatocellular carcinoma to lung Post Procedure Diagnosis: (1) Fecal occult blood test positive (2) Hepatocellular carcinoma Procedure Date: Dec 21, 2016 Supervising Radiologist: Jett Fuentes Anesthesia: Local, Conscious Sedation Plan of Activity Patient to Unit: [facility] Additional Comments: IVC filter placed without difficulty. Permanent filter placed due to varices and metastatic HCCa. See PACS Report for procedural detail/treatment Jett Fuentes MD Dec 21, 2016 15:36
[2016-12-21] MEDS ORDERED: IOHEXOL 350 MG/ML 50 ML BTL (for RAD DIAG) ONE (15:50)
[2016-12-21] MEDS: WARFARIN SOD 2 MG TAB PO SCH (16:00)
--- NOTE | 2016-12-21 16:08 | RADRPT ---
EXAM DATE/TIME: 12/21/2016 14:27 CORRECTION Corrected on: January 02, 2017; added missing exam form information. [facility] COMPARISON: No previous studies available for comparison. INDICATIONS : PE. Portal venous thrombsis. MEDICAL HISTORY : 1.Hep C 2. Hepocellular carcinoma 3. Liver cirrhosis 4. Ascites 5. Cholelithiasis 6. Uterine mass 7. Liver mass 8. Bronchitis 9. Asthma 10. Splenomegaly 11. Bilateral pleural effusion 12/ heart mumur SURGICAL HISTORY : N/A ENCOUNTER: Initial ACUITY: 4 - 6 days PAIN SCORE: 0/10 FLUORO TIME: 1.4 minutes ACCESS SITE: Right Internal jugular vein SEDATION TIME: 15 minutes CONTRAST: 1.) 40 cc Omnipaque (iohexol) 350 MEDICATION(S): 1.) 0.5 mg midazolam (Versed) IV 2.) 25 mcg fentanyl (Sublimaze) IV DEVICE(S): 1.) Inferior vena cava B [place] Venatech filter PROCEDURE : 1. Ultrasound-guided venipuncture. 2. Inferior venacavogram. 3. Inferior vena cava filter placement. 4. Conscious sedation with continuous EKG and oximetry monitoring. The risks, benefits and alternatives to the procedure were explained and verbal and written consent w as obtained. The site was prepped in sterile fashion. Full sterile technique was used, including ca p, mask, sterile gloves and gown and a large sterile sheet. Hand hygiene and 2% chlorhexidine and/or betadine/alcohol prep was utilized per protocol for cutaneous antisepsis. The skin and subcutaneous tissues were infiltrated with local anesthetic solution. With ultrasound and fluoroscopic guidance the targeted vein was punctured and a vascular sheath was p laced. Inferior venacavogram was performed to demonstrate level of renal veins. No caval thrombus was identified. The prescribed filter was deployed in the infrarenal inferior vena cava. Following deplo yment the filter was identified in good position. Conscious sedation was performed with the prescribed dosages and duration as above. The patient clay ated the procedure well and there were no complications. EKG and oximetry remained stable throughout the procedure. The patient was sent to post anesthesia recovery in stable condition. CONCLUSION: Uncomplicated inferior vena cava filter placement as above. Jett Fuentes MD on December 21, 2016 at 16:05 Board Certified Radiologist. This report was verified electronically. DR Crime Investigator Special Agent on January 02, 2017 at 8:37 Board Certified Radiologist. This report was verified electronically.
--- NOTE | 2016-12-21 17:28 | PD.ONC.PN ---
Subjective Subjective Remarks No abdominal pain. No CP/SOB. Objective Data Date Time Temp Pulse Resp B/P Pulse Ox O2 Delivery O2 Flow Rate FiO2 12/21/16 17:23 96.9 68 18 144/69 93 12/21/16 16:02 70 16 128/79 98 12/21/16 15:51 98.4 74 16 135/86 97 12/21/16 12:21 97.5 69 18 149/69 92 12/21/16 10:30 74 12/21/16 09:23 96.9 89 18 166/71 93 12/21/16 04:00 97.4 95 18 148/70 91 12/21/16 00:06 97.6 92 20 160/70 95 12/20/16 20:30 81 12/20/16 19:43 97.6 93 20 144/72 95 12/20/16 18:25 18 12/21/16 12/21/16 12/21/16 07:00 15:00 23:00 Intake Total 360 ml Balance 360 ml Result Diagram: 12/21/16 0630 12/20/16 0250 Laboratory Results Laboratory Tests Test 12/21/16 06:30 White Blood Count 5.0 TH/MM3 Red Blood Count 4.17 MIL/MM3 Hemoglobin 12.1 GM/DL Hematocrit 36.6 % Mean Corpuscular Volume 87.8 FL Mean Corpuscular Hemoglobin 29.1 PG Mean Corpuscular Hemoglobin 33.1 % Concent Red Cell Distribution Width 16.5 % Platelet Count 91 TH/MM3 Mean Platelet Volume 12.0 FL Prothrombin Time 13.4 SEC Prothromb Time International 1.2 RATIO Ratio Culture Results Microbiology Date/Time Procedure Status Source Growth 12/19/16 03:00 Stool Pus (YAMIL) - Final Complete Stool Stool NO WBC'S SEEN 12/19/16 03:00 Stool Occult Blood (YAMIL) - Final Complete Stool Stool HEMOCCULT POSITIVE Imaging Studies Last 24 hours Impressions IVC Filter Placement X-Ray 12/21/16 0000 Signed Impressions: Service Date/Time: November 14:27 - CONCLUSION: Uncomplicated inferior vena cava filter placement as above. Jett Fuentes MD Administered Medications Medications (Trade) Dose Ordered Sig/Jason Route PRN Reason Start Time Stop Time Status Last Admin Dose Admin Dextrose (D50w (Vial) Inj) 25 ml UNSCH PRN IV PUSH HYPOGLYCEMIA-SEE COMMENTS 12/17/16 16:15 12/20/16 05:15 IV Flush (NS Flush) 2 ml BID FLUSH 12/17/16 21:00 12/21/16 10:44 Tramadol HCl (Ultram) 50 mg Q4H PRN PO PAIN SCALE 3 TO 5 12/17/16 16:15 12/17/16 21:40 Tramadol HCl (Ultram) 100 mg Q4H PRN PO PAIN SCALE 6 TO 10 12/17/16 16:15 12/21/16 10:49 Lactobacillus Acidophilus (Lactinex) 1 tab TID PO 12/17/16 18:00 12/21/16 13:29 Ferrous Sulfate (Ferrous Sulfate) 325 mg DAILY PO 12/18/16 09:00 12/21/16 10:46 Furosemide 20 mg 20 mg DAILY PO 12/18/16 09:00 12/21/16 10:46 Heparin Sodium/ Dextrose (Heparin-D5W Inj) 250 ml @ 0 mls/hr TITRATE IV 12/18/16 20:45 12/19/16 19:41 Pantoprazole Sodium (Protonix) 40 mg BID PO 12/21/16 09:30 12/21/16 10:46 Nadolol (Corgard) 20 mg DAILY PO 12/21/16 09:30 12/21/16 11:00 Objective Remarks GENERAL: Well-nourished, well-developed patient. SKIN: Warm and dry. HEAD: Normocephalic. EYES: No scleral icterus. No injection or drainage. NECK: Supple, trachea midline. No JVD or lymphadenopathy. LYMPHATIC: No adenopathy. CARDIOVASCULAR: Regular rate and rhythm without murmurs. RESPIRATORY: Breath sounds equal bilaterally. No accessory muscle use. GASTROINTESTINAL: Abdomen soft, non-tender, slightly distended. EXTREMITIES: No cyanosis, or edema. MUSCULOSKELETAL: Adequate muscle tone. NEUROLOGICAL: No obvious focal deficit. Awake, alert, and oriented x3. PSYCHIATRIC: Appropriate mood and affect; insight and judgment normal. Assessment/Plan Problem List: (1) Hepatocellular carcinoma Status: Acute Plan: --12/21 pt is planning to go home with hospice care. --fs faxed to [facility]. plan for outpatient follow up. possibly start Nexavar if patient wants to have treatment. She and her family is going to meet with palliative care meds to discuss goal of care. History: --presented with increased abdominal pain x several weeks. --afp elevated --Liver mass in the setting of cirrhosis and elevated alpha-fetoprotein most consistent with hepatocellular carcinoma. --CT ab/pelvis +cirrhotic liver with 6 x 3 cm right hepatic lobe mass. + evidence of thrombus in the right portal vein. +innumerable pulmonary nodules. --CT chest--multiple bilateral subcentimeter pulmonary nodules characteristic of pulmonary metastatic disease in patient with known liver masses. --With lung metastasis she will not be a candidate for a liver transplant. Treatment option would be Nexavar. I do not think she can have embolization due to the portal vein thrombosis. (2) Pulmonary emboli Status: Acute Plan: --12/21 anticoagulation was d/c after discovery of esophageal varices due to high risk of bleeding. --on heparin-->coumadin --patient could be transitioned to Lovenox once ready for d/c (3) Portal vein thrombosis Status: Acute (4) Thrombocytopenia Status: Acute Plan: -- Chronic thrombocytopenia due to underlying cirrhosis and hypersplenism. --monitor for bleeding Assessment 66y/o with hepatocellular carcinoma --h/o hepatitis C and cirrhosis Diabetes mellitus. Hemorrhoid. Osteoporosis. Pneumonia. Osteoarthritis. Migraine headache. Chronic bronchitis Plan 1. Await IVC filter placement. 2. Patient plan to go home with hospice.. Parviz Ogden MD Dec 21, 2016 17:28
--- NOTE | 2016-12-21 17:32 | HHI.HCPN ---
Reason for visit a. To assist with evaluation and management of symptoms including: Pain, Anxiety, Diarrhea b. To assist medical decision maker(s) with: better understanding of current medical conditions; weighing benefits/burdens of medical treatment options; making medical treatment decisions. . Subjective/Interval History 66-year-old female recently diagnosed with stage IV metastatic hepatocellular carcinoma. Follow-up visit for pain, anxiety and diarrhea. Patient seen and assessed in room 1529. Presenting on side of bed awake and alert. Oriented to person, place and time. No acute distress observed, no complaints. Patient denies nausea, vomiting, diarrhea. LBM: 12/20/16. Advancing diet from clears to heart healthy. Status post EGD/colonoscopy 12/20/16. EGD showed large varices - EVL 3 performed, moderate portal hypertension gastropathy in stomach, normal duodenum. Dr. Urbano started the patient on Protonix 40 mg PO BID for 2 weeks to prevent bleeding from esophageal ulcers post banding. Recommendations to repeat EGD in 3-4 weeks. Colonoscopy showed moderate internal hemorrhoids, one 6mm sessile polyp found in the cecum - old snare polypectomy performed. Chest CT with filling defect in both pulmonary arteries characteristic of pulmonary embolic disease. Previous plan for anticoagulation therapy secondary to pulmonary embolism and portal vein thrombus. Patient now with known varices, no longer a candidate for chemical prophylaxis because of associated risk for bleeding. Plan to consult IR for possible IVC filter placement. Patient reports continued right-sided lower back pain described as aching, rated 4 out of 10. PRN Morphine and Tramadol are available for symptom control. Patient has utilized Tramadol 100mg dose x 5 over the past 24 hours. Discussed with patient again the importance of requesting PRN pain medication before pain becomes acute. Will continue to monitor PRN requirements as the patient will likely need modification n pain control regimen with disease progression. . Advance Directives Advance Directive Specifics Date completed: 09/18/17 . Health Care Surrogate(s): Patient's daughter, Maya Borrero, is designated as the healthcare surrogate. Objective Vital Signs Date Time Temp Pulse Resp B/P Pulse Ox O2 Delivery O2 Flow Rate FiO2 12/21/16 16:02 70 16 128/79 98 12/21/16 15:51 98.4 74 16 135/86 97 12/21/16 12:21 97.5 69 18 149/69 92 12/21/16 10:30 74 1/26/17 09:23 96.9 89 18 166/71 93 12/21/16 04:00 97.4 95 18 148/70 91 12/21/16 00:06 97.6 92 20 160/70 95 12/20/16 20:30 81 12/20/16 19:43 97.6 93 20 144/72 95 12/20/16 18:25 18 Intake & Output 12/21/16 12/21/16 06:59 18:59 Intake Total 360 ml Balance 360 ml Intake Oral 360 ml # Voids 3 3 . Physical Exam CONSTITUTIONAL/GENERAL: This is an adequately nourished patient, in no apparent distress. TUBES/LINES/DRAINS: PIV x 1 SKIN: Skin is warm and dry, color within normal limits for ethnicity. HEAD: Atraumatic. Normocephalic. EYES: Pupils equal and round and reactive. No scleral icterus. No injection or drainage. Fundi not examined. ENT: Hearing grossly normal. Nose without bleeding or purulent drainage. NECK: Trachea midline. Supple, nontender. No palpable thyroid enlargement or nodularity. CARDIOVASCULAR: Regular rate and rhythm.. No JVD. Peripheral pulses symmetric. RESPIRATORY/CHEST: Symmetric, unlabored respirations. Clear to auscultation. Breath sounds equal bilaterally. Intermittent wheezing GASTROINTESTINAL: Abdomen slightly distended, tender to palpation. Bowel sounds present. GENITOURINARY: Without palpable bladder distension. MUSCULOSKELETAL: Extremities without clubbing, cyanosis, or edema. No mottling or clubbing. NEUROLOGICAL: Awake and alert. Follows commands. Cognitively sharp. Moves all extremities. PSYCHIATRIC: No obvious anxiety/depression. no apparent hallucinations or other psychotic thought process. . Diagnostic Tests Laboratory Laboratory Tests Test 12/18/16 12/19/16 12/19/16 12/19/16 23:47 03:00 03:18 05:53 White Blood Count 5.8 TH/MM3 (4.0-11.0) Red Blood Count 3.86 MIL/MM3 (4.00-5.30) Hemoglobin 11.0 GM/DL (11.6-15.3) Hematocrit 34.0 % (35.0-46.0) Mean Corpuscular Volume 88.0 FL (80.0-100.0) Mean Corpuscular Hemoglobin 28.4 PG (27.0-34.0) Mean Corpuscular Hemoglobin 32.3 % Concent (32.0-36.0) Red Cell Distribution Width 15.9 % (11.6-17.2) Platelet Count 78 TH/MM3 (150-450) Mean Platelet Volume 12.0 FL (7.0-11.0) Prothrombin Time 14.5 SEC (9.8-11.6) Prothromb Time International 1.3 RATIO Ratio Activated Partial 68.9 SEC 90.3 SEC 71.4 SEC Thromboplast Time (24.3-30.1) (24.3-30.1) (24.3-30.1) Stool C. difficile Toxin (PCR) NEGATIVE (NEGATIVE) Stl C. difficile Toxin PRESUMPTIVE Epiderm 027 NEGATIVE (NEGATIVE) Test 12/19/16 12/19/16 12/19/16 12/20/16 09:52 12:50 20:32 02:50 White Blood Count 5.1 TH/MM3 5.6 TH/MM3 (4.0-11.0) (4.0-11.0) Red Blood Count 4.02 MIL/MM3 4.15 MIL/MM3 (4.00-5.30) (4.00-5.30) Hemoglobin 11.8 GM/DL 11.9 GM/DL (11.6-15.3) (11.6-15.3) Hematocrit 35.0 % 35.9 % (35.0-46.0) (35.0-46.0) Mean Corpuscular Volume 87.1 FL 86.6 FL (80.0-100.0) (80.0-100.0) Mean Corpuscular Hemoglobin 29.3 PG 28.6 PG (27.0-34.0) (27.0-34.0) Mean Corpuscular Hemoglobin 33.7 % 33.0 % Concent (32.0-36.0) (32.0-36.0) Red Cell Distribution Width 16.2 % 16.2 % (11.6-17.2) (11.6-17.2) Platelet Count 78 TH/MM3 86 TH/MM3 (150-450) (150-450) Mean Platelet Volume 12.2 FL 11.5 FL (7.0-11.0) (7.0-11.0) Neutrophils (%) (Auto) 77.5 % 78.0 % (16.0-70.0) (16.0-70.0) Lymphocytes (%) (Auto) 8.4 % 8.6 % (9.0-44.0) (9.0-44.0) Monocytes (%) (Auto) 10.5 % 10.2 % (0.0-8.0) (0.0-8.0) Eosinophils (%) (Auto) 3.1 % (0.0-4.0) 2.7 % (0.0-4.0) Basophils (%) (Auto) 0.5 % (0.0-2.0) 0.5 % (0.0-2.0) Neutrophils # (Auto) 4.0 TH/MM3 4.4 TH/MM3 (1.8-7.7) (1.8-7.7) Lymphocytes # (Auto) 0.4 TH/MM3 0.5 TH/MM3 (1.0-4.8) (1.0-4.8) Monocytes # (Auto) 0.5 TH/MM3 0.6 TH/MM3 (0-0.9) (0-0.9) Eosinophils # (Auto) 0.2 TH/MM3 0.2 TH/MM3 (0-0.4) (0-0.4) Basophils # (Auto) 0.0 TH/MM3 0.0 TH/MM3 (0-0.2) (0-0.2) CBC Comment AUTO DIFF AUTO DIFF Differential Comment AUTO DIFF AUTO DIFF CONFIRMED CONFIRMED Platelet Estimate LOW (NORMAL) LOW (NORMAL) Platelet Morphology Comment ENLARGED ENLARGED (NORMAL) (NORMAL) Tear Drop Cells 1+ (NORMAL) Ovalocytes 1+ (NORMAL) 1+ (NORMAL) Keratocytes OCC (NORMAL) OCC (NORMAL) Activated Partial 46.9 SEC 48.1 SEC 36.0 SEC Thromboplast Time (24.3-30.1) (24.3-30.1) (24.3-30.1) Acanthocytes OCC (NORMAL) Prothrombin Time 13.4 SEC (9.8-11.6) Prothromb Time International 1.2 RATIO Ratio Sodium Level 135 MEQ/L (136-145) Potassium Level 4.1 MEQ/L (3.5-5.1) Chloride Level 101 MEQ/L (98-107) Carbon Dioxide Level 24.7 MEQ/L (21.0-32.0) Anion Gap 9 MEQ/L (5-15) Blood Urea Nitrogen 11 MG/DL (7-18) Creatinine 0.46 MG/DL (0.50-1.00) Estimat Glomerular Filtration 135 ML/MIN Rate (>89) Random Glucose 72 MG/DL (74-106) Calcium Level 9.4 MG/DL (8.5-10.1) Magnesium Level 1.5 MG/DL (1.5-2.5) Total Creatine Kinase 80 U/L (26-192) Troponin I LESS THAN 0.02 NG/ML (0.02-0.05) Test 12/21/16 06:30 White Blood Count 5.0 TH/MM3 (4.0-11.0) Red Blood Count 4.17 MIL/MM3 (4.00-5.30) Hemoglobin 12.1 GM/DL (11.6-15.3) Hematocrit 36.6 % (35.0-46.0) Mean Corpuscular Volume 87.8 FL (80.0-100.0) Mean Corpuscular Hemoglobin 29.1 PG (27.0-34.0) Mean Corpuscular Hemoglobin 33.1 % Concent (32.0-36.0) Red Cell Distribution Width 16.5 % (11.6-17.2) Platelet Count 91 TH/MM3 (150-450) Mean Platelet Volume 12.0 FL (7.0-11.0) Prothrombin Time 13.4 SEC (9.8-11.6) Prothromb Time International 1.2 RATIO Ratio . Result Diagram: 12/21/16 0630 12/20/16 0250 Microbiology Microbiology Date/Time Procedure Status Source Growth 12/19/16 03:00 Stool Pus (YAMIL) - Final Complete Stool Stool NO WBC'S SEEN 12/19/16 03:00 Stool Occult Blood (YAMIL) - Final Complete Stool Stool HEMOCCULT POSITIVE . Imaging Last 72 hours Impressions IVC Filter Placement X-Ray 12/21/16 0000 Signed Impressions: Service Date/Time: November 14:27 - CONCLUSION: Uncomplicated inferior vena cava filter placement as above. Jett Fuentes MD . Procedures 12/20/16: EGD/colonoscopy . Assessment and Plan Disease Oriented Problem List: (1) Rib pain on right side (2) SBP (spontaneous bacterial peritonitis) (3) Abdominal pain (4) Portal vein thrombosis (5) Hepatocellular carcinoma (6) Pulmonary emboli (7) Thrombocytopenia (8) Cirrhosis (9) Fecal occult blood test positive (10) Metastatic hepatocellular carcinoma to lung Symptom Scale: (1) Pain 0-10 Scale: 3 Comment: Patient reporting right-sided abdominal pain, greater in the lower quadrant; mid epigastric pain; new onset right-sided lower back pain. Pain is likely secondary to metastatic hepatocellular carcinoma, although patient does have a history of chronic back pain/RAVI. Current orders for PRN tramadol and IV morphine, being sparingly used. Patient states pain has improved a great deal, but was "excruciating " when she presented to the ED on 12/17/15. Discussed the importance of requesting pain medication before pain becomes unbearable- it is easier to maintain her acceptable pain level than recover from an acute pain crisis. Palliative care will monitor PRN requirements and make recommendations as indicated. . (2) Diarrhea (3) Anxiety Pertinent Non-Medical Issues Psychosocial: Patient was born at [facility] and graduated from [employer]. She has 4 sister, one from renal carcinoma. She is . 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 She has 2 daughters, Maya Beth, who live locally. Her 27 -year-old granddaughter (Reanna) has cerebral palsy and is light of the patient' s life. Spiritual: Lutheran russ Legal: Patient's daughter, Maya Borrero, is designated as the health care surrogate. Ethical issues impacting care: No known ethical issues impacting care at this time. Important Contacts Maya Wise, daughter: [phone] . Prognosis Patient newly diagnosed with stage IV metastatic hepatocellular carcinoma to the lungs. Prognosis is very poor, life expectancy 3-6 months. . Code Status: Full Code Plan * FULL CODE * Decision-making: Patient has designated her daughter, Maya Borrero, as health care surrogate. Form completed 12/19/16. Copy placed in patient's paper chart. * Goals: Undetermined pending family meeting, patient will likely transition to hospice in the upcoming days. * Patient newly diagnosed with stage IV metastatic hepatocellular carcinoma to the lungs. Prognosis is very poor, hospice appropriate. * Symptom managementpain: Patient reports continued right-sided lower back pain described as aching, rated 4 out of 10. PRN Morphine and Tramadol are available for symptom control. Patient has utilized Tramadol 100mg dose x 5 over the past 24 hours. Discussed with patient again the importance of requesting PRN pain medication before pain becomes acute. Will continue to monitor PRN requirements as the patient will likely need modification n pain control regimen with disease progression. * Status post EGD/colonoscopy 12/20/16. EGD showed large varices were noted - EBL 3 performed, moderate portal hypertension gastropathy in stomach, normal duodenum. Dr. Urbano started the patient on Protonix 40 mg PO BID for 2 weeks to prevent bleeding from esophageal ulcers post banding. Recommendations to repeat EGD in 3-4 weeks. Colonoscopy showed moderate internal hemorrhoids, one 6mm sessile polyp found in the cecum - old snare polypectomy performed. * Chest CT with filling defect in both pulmonary arteries characteristic of pulmonary embolic disease. Previous plan for anticoagulation therapy secondary to pulmonary embolism and portal vein thrombus. Patient now with known varices, no longer a candidate for chemical prophylaxis because of associated risk for bleeding. Plan to consult IR for possible IVC filter placement. * Hospice consulted, spoke with Sonia at hospice intake. Will contact patient/ family to schedule appointment for tomorrow 12/22/16. * PATIENT'S DAUGHTER IS REQUESTING TO SPEAK WITH ONCOLOGY. DAUGHTER [facility] #[phone] * Palliative care will continue to follow throughout hospitalization to establish trust, assist with symptom management and clarification of medical treatment goals. . Attestation To help prompt me to consider important information that might be impacting today's encounter and assessment, information from prior notes written by myself or my colleagues may have been "brought forward" into today's note. My signature on this note, however, is an attestation that I personally performed the exam, history, and/or decision-making noted today, and, unless otherwise indicated, the interactions with patient, family, and staff as well as the review of records all occurred today. I also attest that the listed assessment and stated plan reflect my best clinical judgment today based on the combination of historical information, prior notes, and today's exam/ interactions. When time spent is documented, it refers only to time spent today by the signer, or if indicated, combined time spent today by collaborating physician/nurse practitioner. . Priyanka Armstrong Dec 21, 2016 17:32
[2016-12-21] MEDS: HEPARIN-D5W INJ 250 ML IV SCH (21:22)
[2016-12-21] MEDS: RESP: ALBUTEROL 2.5 MG/IPRATROPIUM 0.5 MG NEB (SCH) NEB (21:57)
[2016-12-22] VITALS: BP 130/63; PULSE 70; RESP 20; TEMP 97.6; O2SAT 94
[2016-12-22] MEDS: traMADol HCL 50 MG TAB PO PRN ×2 (02:17→08:56)
[2016-12-22 04:11] LABS: INTERNATIONAL NORMALIZED RATIO 1.3 RATIO; PROTHROMBIN TIME - PATIENT 14.2 SEC (9.8-11.6)
[2016-12-22 05:04] VITALS: BP 126/68; PULSE 70; RESP 20; TEMP 96.2; O2SAT 93
[2016-12-22] MEDS: INSULIN ASPART SUPPLEMENTAL SCALE SQ SCH ×2 (06:49→10:52)
[2016-12-22 08:00] VITALS: BP 140/65; PULSE 67; RESP 18; TEMP 96.5; O2SAT 95
[2016-12-22] MEDS: NADOLOL 20 MG TAB PO SCH (08:50)
[2016-12-22] MEDS: FUROSEMIDE 20 MG TAB PO SCH (08:50)
[2016-12-22] MEDS: PANTOPRAZOLE SOD 40 MG DELAYED RELEASE TAB PO SCH (08:50)
[2016-12-22] MEDS: LACTOBACILLUS ACIDOPHILUS TAB PO SCH ×2 (08:50→13:00)
[2016-12-22] MEDS: FERROUS SULFATE 325 MG (65 MG ELEMENTAL IRON) TAB PO SCH (08:50)
[2016-12-22] MEDS: SODIUM CHLORIDE 0.9% FLUSH 5 ML FLUSH FLUSH SCH (09:00)
[2016-12-22] MEDS: RESP: ALBUTEROL 2.5 MG/IPRATROPIUM 0.5 MG NEB (SCH) NEB ×2 (10:12→13:42)
[2016-12-22] MEDS ORDERED: SENN8.6T15 PO (10:12)
[2016-12-22] MEDS ORDERED: PANT40TA3 PO (10:12)
[2016-12-22] MEDS ORDERED: NADO1TAB16 PO (10:12)
[2016-12-22] MEDS ORDERED: VENTAER INH (10:12)
[2016-12-22 10:13] VITALS: O2SAT 92
--- NOTE | 2016-12-22 10:13 | HHI.DS ---
Discharge Summary Admission Date Dec 19, 2016 at 07:35 Discharge Date: Dec 22, 2016 Admitting Diagnosis abdominal pain, ascites (1) Abdominal pain ICD Code: R10.9 Diagnosis: Principal (2) Hepatocellular carcinoma ICD Code: C22.0 Diagnosis: Secondary (3) Portal vein thrombosis ICD Code: I81 Diagnosis: Secondary (4) Pulmonary emboli ICD Code: I26.99 Diagnosis: Principal Procedures IVC filter placed by IR on 12/21/16 Brief History - From Admission 66-year-old female with a past medical history of hepatitis C, cirrhosis, thrombocytopenia who presented for abdominal pain. The patient states that she was woken up this morning with severe abdominal pain. She states that she's been having right-sided abdominal discomfort, worse in the right lower quadrant for the past 3 or 4 weeks. Today the pain was worse in the midepigastric region. He states that she saw her PCP, had a liver sonogram done, which showed cholelithiasis, which is chronic for the patient. She followed up with her director of creative services, who started her on Flagyl for possible infection, started last Sunday. She's been having associated gas, distention, nausea, diarrhea. Had 10 episodes of loose stools earlier today. She denies any vomiting. Has been having decreased oral intake as food seems to make the pain worse, has been trying a bland diet. She denies any fevers or chills. Her abdominal pain has been intermittent, and currently is resolved. Her director of creative services is Dr. Youngblood. She follows with Dr. Ogden for thrombocytopenia. The patient had new liver mass found in the ED. Gastroenterology was consulted, and recommended admission if concern for SBP, and thus the patient was admitted to medicine. CBC/BMP: 12/21/16 0630 12/20/16 0250 Significant Findings Laboratory Tests Test 12/19/16 12/19/16 12/20/16 12/21/16 12:50 20:32 02:50 06:30 Activated Partial 46.9 SEC 48.1 SEC 36.0 SEC Thromboplast Time (24.3-30.1) (24.3-30.1) (24.3-30.1) Platelet Count 86 TH/MM3 91 TH/MM3 (150-450) (150-450) Mean Platelet Volume 11.5 FL 12.0 FL (7.0-11.0) (7.0-11.0) Neutrophils (%) (Auto) 78.0 % (16.0-70.0) Lymphocytes (%) (Auto) 8.6 % (9.0-44.0) Monocytes (%) (Auto) 10.2 % (0.0-8.0) Lymphocytes # (Auto) 0.5 TH/MM3 (1.0-4.8) Platelet Estimate LOW (NORMAL) Platelet Morphology Comment ENLARGED (NORMAL) Ovalocytes 1+ (NORMAL) Acanthocytes OCC (NORMAL) Keratocytes OCC (NORMAL) Prothrombin Time 13.4 SEC 13.4 SEC (9.8-11.6) (9.8-11.6) Sodium Level 135 MEQ/L (136-145) Creatinine 0.46 MG/DL (0.50-1.00) Random Glucose 72 MG/DL (74-106) Troponin I LESS THAN 0.02 NG/ML (0.02-0.05) Test 12/22/16 03:40 Prothrombin Time 14.2 SEC (9.8-11.6) Activated Partial 87.0 SEC Thromboplast Time (24.3-30.1) Imaging Last Impressions IVC Filter Placement X-Ray 12/21/16 0000 Signed Impressions: Service Date/Time: November 14:27 - CONCLUSION: Uncomplicated inferior vena cava filter placement as above. Jett Fuentes MD Chest CT 12/18/16 0000 Signed Impressions: Service Date/Time: Sunday, December 18, 2016 18:02 - CONCLUSION: 1. Multiple bilateral subcentimeter pulmonary nodules characteristic of pulmonary metastatic disease in patient with known liver masses. 2. Filling defects in both pulmonary arteries characteristic of pulmonary embolic disease. 3. Trace right pleural fluid. Mild ascites. Alfredo Rivas MD Abdomen Ultrasound 12/18/16 0000 Signed Impressions: Service Date/Time: Saturday, December 17, 2016 17:42 - CONCLUSION: There is not enough ascites for safe paracentesis.. Lucien Fuentes MD FACR Abdomen MRI 12/18/16 0000 Signed Impressions: Service Date/Time: Sunday, December 18, 2016 11:10 - CONCLUSION: 1. 2 hepatic masses involving the right lobe of the liver as detailed above with signal characteristics suggesting multifocal hepatocellular carcinoma in this patient with cirrhosis. There is tumor thrombus extending into an accessory right hepatic vein and down the IVC slightly. There is complete thrombosis of the right portal vein with some nonocclusive thrombus involving the main portal vein. Biliary dilatation involving the right hepatic lobe. 2. Cholelithiasis. 3. Splenomegaly. 4. Small volume ascites. 5. Tiny bilateral pleural effusions. Adam Byrne Jr., MD Abdomen/Pelvis CT 12/17/16 1148 Signed Impressions: Service Date/Time: Saturday, December 17, 2016 13:20 - CONCLUSION: 1. Cirrhotic liver with right lobe liver mass suspicious for hepatocellular carcinoma. There is diffuse heterogeneous enhancement of the right lobe with thrombus in the right portal vein. 2. There are innumerable pulmonary nodules in the lung bases suspicious for metastatic disease. 3. Moderate volume of the free fluid in the abdomen and pelvis. Other findings suggesting portal hypertension including splenomegaly and esophageal varices. 4. Nonacute findings include cholelithiasis and 2 cm left uterine mass likely representing a leiomyoma. Rahul Gan MD PE at Discharge GENERAL: Well-nourished, well-developed female patient in NAD. SKIN: Warm and dry. No rash. HEAD: Normocephalic. Atraumatic. NECK: Supple. Trachea midline. CARDIOVASCULAR: Regular rate and rhythm. S1, S2 noted. 2/6 holosystolic murmur. RESPIRATORY: No accessory muscle use. Clear to auscultation. Breath sounds equal bilaterally. GASTROINTESTINAL: Abdomen soft, non-tender, nondistended. Normoactive bowel sounds x4. MUSCULOSKELETAL: No obvious deformities. 1+ b/l lower extremity edema, slightly worse on the left. NEUROLOGICAL: Awake and alert. No obvious cranial nerve deficits. Motor grossly within normal limits. Normal speech. PSYCHIATRIC: Appropriate mood and affect; insight and judgment normal. Pt update on day of discharge Feeling much better, no nausea, vomiting, diarrhea or constipation feels wheezing sometimes. Nebulizers helped. Satting well on room air. Wants to go home. Hospital Course 66-year-old female with a past medical history of hepatitis C, cirrhosis, thrombocytopenia who presented for abdominal pain Abdominal pain, new diagnosis of suspected Hepatocellular Carcinoma with Metastasis; Liver/Lung masses: -Imaging reviewed: CT abd/pelvis with cirrhotic liver with right lobe liver mass suspicious for hepatocellular carcinoma, right portal vein thrombus; innumerable pulmonary nodules suspicious for metastatic disease; moderate volume of free fluid in the abdomen/pelvis; splenomegaly and esophageal varices ; cholelithiasis; left uterine leiomyoma. -Afebrile, no leukocytosis; Abdomen soft, nontender on exam. S/p IV Zosyn in ED however no signs of SBP at this time. -Abdominal U/S revealed not enough ascites for paracentesis -Gastroenterology on board, plan for EGD/colonoscopy today 12/20 -Pain control with tramadol as needed. Lactinex. Protonix. Continue Flagyl. -AFP elevated -Consult Oncology, discussed with Dr. Ogden, appreciate recommendations -Palliative care consult, appreciate assistance - add duonebs as patient is wheezing Esophageal varices - large varices noted on endoscopy, EVL x 3 performed - started nadolol 20mg PO daily, titrate to HR 55-65bpm - protonix 40mg PO BID x 2 weeks to prevent bleeding from esophageal ulcers post banding per Dr Espino GI - repeat EGD in 3-[address] Espino Colon polyp- one 6mm polyp removed from cecum by cold snare polypectomy by Dr Espino GI specialist. Path report pending Pulmonary Embolism and Portal Vein Thrombus: Chest CT with filling defect in both pulmonary arteries characteristic of pulmonary embolic disease. Oncology on board. DC IV Heparin and coumadin. Patient with varices and she is not a candidate for chemical prophylaxis as high risk of bleeding. Discussed with GI specialist Dr Espino, appreciate recommendations. Plan for IVC filter. Consult IR for IVC filter placement Hepatitis C/cirrhosis/thrombocytopenia: Chronic. Continue furosemide and ferrous sulfate. Hyperglycemia: Past history of diabetes mellitus, on no meds currently. Random glucose 117, fasting 84. Hemoglobin A1c 5.6. SSI with Accu-Cheks. DVT prophylaxis: SCDs, on Heparin drip DC when INR therapeutic and cleared by hem/onc Discussed with the patient and the nurse Discussed with Dr Espino GI specialist and palliative care service Patient has IVC filter placed on 12/21/16. Patient improved was cleared for DC by consultants. 2 follow-up as outpatient with PCP and consultants Pt Condition on Discharge: Stable Discharge Disposition: Hospice/ Home Discharge Time: > 30 minutes Discharge Instructions DIET: Follow Instructions for: Heart Healthy Diet Activities you can perform: Regular-No Restrictions Follow up Referrals: Gastroenterology - 2 Weeks Oncology - 1 Week PCP Follow-up - 3-5 Days Pulmonology - 1 Week New Medications: Albuterol 18 GM Inh (Ventolin Hfa 18 GM Inh) 90 Mcg/Act Aer 2 PUFF INH Q4-6H PRN SHORTNESS OF BREATH #1 Ref 0 INHALER Budesonide-Formoterol Inh (Symbicort Inh) 80-4.5 Mcg/Act Aero 1 PUFF INH Q12HR Asthma Management #1 Ref 0 INHALER Ipratropium HFA 12.9 GM Inh (Atrovent HFA 12.9 GM Inh) 17 Mcg/Act Aer 2 PUFF INH Q6HR PRN SHORTNESS OF BREATH #1 Ref 0 INHALER Prednisone (21) 10 mg tab Dose Pack (Prednisone (21) 10 mg tab Dose Pack) 10 Mg Pack 10 MG PO DIRECTED Inflammation #1 Ref 0 DSPK Nadolol (Corgard) 20 Mg Tab 20 MG PO DAILY Blood Pressure Management #30 TAB Pantoprazole (Pantoprazole) 40 Mg Tab 40 MG PO BID gerd/esophageal varices #28 TAB Sennosides (Senna Lax) 8.6 Mg Tab 17.2 MG PO Q12H PRN CONSTIPATION #30 TAB Continued Medications: Calcium (Calcium) Unknown Strength Tab 1 TAB PO BID TAB Echinacea (Echinacea) Unknown Strength Tab 2 TAB PO BID Ferrous Sulfate (Feosol) 65 Mg Tab 65 MG PO DAILY Nutritional Supplement #30 Ref 0 TAB Furosemide (Furosemide) 20 Mg Tab 20 MG PO DAILY #30 Ref 0 TAB Wdsafcgqwjk-Ffpcubmhbfb-Eyu C- (Glucosamine Chondroitin) 1 Tab Tab 2 TAB PO DAILY Magnesium (Magnesium) 250 Mg Tab 250 MG PO BID TAB Metronidazole (Flagyl) 250 Mg Tab 250 MG PO TID Infection Ref 0 TAB Potassium (Potassium) 99 Mg Tab 99 MG PO DAILY Melva Martínez MD Dec 22, 2016 10:13
--- NOTE | 2016-12-22 10:27 | HHI.GIFU ---
Subjective Remarks Pt doing well, denies any bleeding or pain. Tolerating diet. Objective Vitals I&O Vital Signs Date Time Temp Pulse Resp B/P Pulse Ox O2 Delivery O2 Flow Rate FiO2 12/22/16 10:13 92 12/22/16 08:00 96.5 67 18 140/65 95 12/22/16 05:04 96.2 70 20 126/68 93 12/22/16 03:17 19 12/22/16 00:00 97.6 70 20 130/63 94 12/21/16 21:57 92 12/21/16 21:15 70 12/21/16 20:00 97.1 70 20 132/58 93 12/21/16 17:23 96.9 68 18 144/69 93 12/21/16 16:02 70 16 128/79 98 12/21/16 15:51 98.4 74 16 135/86 97 12/21/16 12:21 97.5 69 18 149/69 92 12/21/16 10:30 74 I/O 12/21/16 12/21/16 12/21/16 12/22/16 12/22/16 12/22/16 07:00 15:00 23:00 07:00 15:00 23:00 Intake Total 360 ml Balance 360 ml Intake Oral 360 ml # Voids 3 3 0 1 Laboratory Laboratory Tests Test 12/22/16 03:40 Prothrombin Time 14.2 Prothromb Time International 1.3 Ratio Activated Partial 87.0 Thromboplast Time Date/Time Procedure Status Source Growth 12/19/16 03:00 Stool Pus (YAMIL) - Final Complete Stool Stool NO WBC'S SEEN 12/19/16 03:00 Stool Occult Blood (YAMIL) - Final Complete Stool Stool HEMOCCULT POSITIVE Imaging Last 48 hours Impressions IVC Filter Placement X-Ray 12/21/16 0000 Signed Impressions: Service Date/Time: November 14:27 - CONCLUSION: Uncomplicated inferior vena cava filter placement as above. Jett Fuentes MD Physical Exam HEENT: Pupils round and reactive to light; normocephalic; atraumatic; no jaundice. Throat is clear. NECK: Neck is supple, no JVD, no lymphadenopathy. ABDOMEN: Soft, mildly distended, nontender; no hepatosplenomegaly; bowel sounds are present in all four quadrants. EXTREMITIES: No clubbing, cyanosis, or edema. SKIN: Normal; no rash; no jaundice. ROD PLACER: No focal deficits; alert and oriented times three. Assessment and Plan Assessment: (1) Fecal occult blood test positive (2) Cirrhosis (3) Hepatocellular carcinoma Plan 1. Hepatocellular carcinoma - MRI with radiological features of metastatic HCC. two lesions seen, one large (do not give exact measurements on MRI report but CT called it 6.0 cmm) and smaller one 2.9cm with adjacent tumor thrombus and multiple subcentimeter pulmonary nodules. Recommend against liver biopsy since we can make diagnosis based on imaging and elevated AFP. - Oncology on board, maybe candidate for Nexavar - Palliative care following 2. Esophageal varices - large varices noted on endoscopy, EVL x 3 performed - started nadolol 20mg PO daily, titrate to HR 55-65bpm - recommend protonix 40mg PO BID x 2 weeks to prevent bleeding from esophageal ulcers post banding - repeat EGD in 3-4 weeks recommended 3.Colon polyp - one 6mm polyp removed from cecum by cold snare polypectomy - await path report 4. Pulmonary embolisms/PVT - noted on imaging - concerns about chronic anticoagulation in patient with large varices with high risk of bleeding. IVC filter placed. 5. Hep C induced cirrhosis - low MELD, not candidate for liver tx due to metastatic HCC - Minimal ascites, unable to perform paracentesis. Continue low Na diet and low dose diuretics - no significant hepatic encephalopathy, continue to monitor At this time GI sign off. Pt to follow up with Dr. Youngblood as outpatient. Please call with questions or concerns. Thank you for this consult. Vijay Schaefer MD Dec 22, 2016 10:27
--- NOTE | 2016-12-22 11:29 | PD.ONC.PN ---
Subjective Subjective Remarks Afebrile overnight. Patient resting comfortably. She feels sleepy as she just received her pain pills. Daughter at bedside. Objective Data Date Time Temp Pulse Resp B/P Pulse Ox O2 Delivery O2 Flow Rate FiO2 12/22/16 10:13 92 12/22/16 08:00 96.5 67 18 140/65 95 12/22/16 05:04 96.2 70 20 126/68 93 12/22/16 03:17 19 12/22/16 00:00 97.6 70 20 130/63 94 12/21/16 21:57 92 12/21/16 21:15 70 12/21/16 20:00 97.1 70 20 132/58 93 12/21/16 17:23 96.9 68 18 144/69 93 12/21/16 16:02 70 16 128/79 98 12/21/16 15:51 98.4 74 16 135/86 97 12/21/16 12:21 97.5 69 18 149/69 92 Result Diagram: 12/21/16 0630 12/20/16 0250 Laboratory Results Laboratory Tests Test 12/22/16 03:40 Prothrombin Time 14.2 SEC Prothromb Time International 1.3 RATIO Ratio Activated Partial 87.0 SEC Thromboplast Time Administered Medications Medications (Trade) Dose Ordered Sig/Jason Route PRN Reason Start Time Stop Time Status Last Admin Dose Admin Dextrose (D50w (Vial) Inj) 25 ml UNSCH PRN IV PUSH HYPOGLYCEMIA-SEE COMMENTS 12/17/16 16:15 12/20/16 05:15 IV Flush (NS Flush) 2 ml BID FLUSH 12/17/16 21:00 12/21/16 21:26 Ondansetron HCl (Zofran Inj) 4 mg Q6H PRN IVP NAUSEA OR VOMITING 12/17/16 16:15 12/22/16 10:19 Tramadol HCl (Ultram) 50 mg Q4H PRN PO PAIN SCALE 3 TO 5 12/17/16 16:15 12/17/16 21:40 Tramadol HCl (Ultram) 100 mg Q4H PRN PO PAIN SCALE 6 TO 10 12/17/16 16:15 12/22/16 08:56 Lactobacillus Acidophilus (Lactinex) 1 tab TID PO 12/17/16 18:00 12/22/16 08:50 Ferrous Sulfate (Ferrous Sulfate) 325 mg DAILY PO 12/18/16 09:00 12/22/16 08:50 Furosemide (Lasix) 20 mg DAILY PO 12/18/16 09:00 12/22/16 08:50 Pantoprazole Sodium (Protonix) 40 mg BID PO 12/21/16 09:30 12/22/16 08:50 Nadolol (Corgard) 20 mg DAILY PO 12/21/16 09:30 12/22/16 08:50 Objective Remarks GENERAL: Middle aged female, sitting up in bed, sleepy, but in nad. Daughter at bedside. SKIN: Warm and dry. HEAD: Normocephalic. EYES: No injection or drainage. NECK: Supple, trachea midline. CARDIOVASCULAR: Regular rate and rhythm RESPIRATORY: Breath sounds equal bilaterally. No accessory muscle use. GASTROINTESTINAL: Abdomen soft, non-tender, nondistended. EXTREMITIES: No cyanosis NEUROLOGICAL: awake and alert, normal speech. moving all extremities. Assessment/Plan Problem List: (1) Hepatocellular carcinoma Status: Acute Plan: 12/22: patient will be d/c'd with hospice. --12/21 pt is planning to go home with hospice care. --fs faxed to [facility]. plan for outpatient follow up. possibly start Nexavar if patient wants to have treatment. She and her family is going to meet with palliative care meds to discuss goal of care. History: --presented with increased abdominal pain x several weeks. --afp elevated --Liver mass in the setting of cirrhosis and elevated alpha-fetoprotein most consistent with hepatocellular carcinoma. --CT ab/pelvis +cirrhotic liver with 6 x 3 cm right hepatic lobe mass. + evidence of thrombus in the right portal vein. +innumerable pulmonary nodules. --CT chest--multiple bilateral subcentimeter pulmonary nodules characteristic of pulmonary metastatic disease in patient with known liver masses. --With lung metastasis she will not be a candidate for a liver transplant. Treatment option would be Nexavar. I do not think she can have embolization due to the portal vein thrombosis. (2) Pulmonary emboli Status: Acute Plan: --12/21 anticoagulation was d/c after discovery of esophageal varices due to high risk of bleeding. --on heparin-->coumadin --patient could be transitioned to Lovenox once ready for d/c (3) Portal vein thrombosis Status: Acute (4) Thrombocytopenia Status: Acute Plan: -- Chronic thrombocytopenia due to underlying cirrhosis and hypersplenism. --monitor for bleeding Assessment 66y/o with hepatocellular carcinoma --h/o hepatitis C and cirrhosis Diabetes mellitus. Hemorrhoid. Osteoporosis. Pneumonia. Osteoarthritis. Migraine headache. Chronic bronchitis Plan 1. IVC filter placed. d/w hospitalist, high risk of bleeding with esophageal varices no ac recommended per GI 2. clear for discharge to hospice. 3. reviewed CT scans with daughter, patient at bedside. Attending Statement The exam, history, and the medical decision-making described in the above note were completed with the assistance of the mid-level provider. I reviewed and agree with the findings presented. I attest that I had a [id number] encounter with the patient on the same day, and personally performed and documented my assessment and findings in the medical record. NO abdominal pain. She is awaiting d/c with hospice. GI has recommended no anticoagulation due to esophageal varices and high risk of bleeding. Discussed with pt's daughter. Aria Lucas Dec 22, 2016 11:29 Parviz Ogden MD Dec 22, 2016 18:09
[2016-12-22] MEDS ORDERED: PRED10PA PO (14:57)
[2016-12-22] MEDS ORDERED: SYMB80AE INH (14:57)
[2016-12-22] MEDS ORDERED: IPRA17I INH (14:57)
[2016-12-22] MEDS ORDERED: methylPREDNISolone SOD SUCC 125 MG/2 ML VIAL IV PUSH ONE (15:00)
[2016-12-22 16:00] VITALS: BP 133/63; PULSE 58; RESP 18; TEMP 96.3; O2SAT 93
== END 2016-12-22 16:55 | disposition hospice, home (50) | DRG 423 ==
LOC: NEPC 09:39 → NEDA 15:32 → NEPHCDU 18:54 → OBSVTOIN 12-19 07:35 → N05B 12-21 01:45
PROVIDERS: ADMIT Hospitalist; ATTEND Hospitalist
PROC: 0DBH8ZX Excision of Cecum, Via Natural or Artificial Opening Endoscopic, Diagnostic (ICD-10-PCS; 2016-12-20)
PROC: 06L34CZ Occlusion of Esophageal Vein with Extraluminal Device, Percutaneous Endoscopic Approach (ICD-10-PCS; principal; 2016-12-20 15:00)
PROC: 06H03DZ Insertion of Intraluminal Device into Inferior Vena Cava, Percutaneous Approach (ICD-10-PCS; 2016-12-21)
DX: C22.0 Liver cell carcinoma (principal); I81 Portal vein thrombosis; I26.99 Other pulmonary embolism without acute cor pulmonale; C78.00 Secondary malignant neoplasm of unspecified lung; R18.8 Other ascites; I85.10 Secondary esophageal varices without bleeding; K76.6 Portal hypertension; B18.2 Chronic viral hepatitis C; D12.0 Benign neoplasm of cecum; J45.909 Unspecified asthma, uncomplicated; M19.90 Unspecified osteoarthritis, unspecified site; K80.20 Calculus of gallbladder without cholecystitis without obstruction; J42 Unspecified chronic bronchitis; M81.0 Age-related osteoporosis without current pathological fracture; G43.909 Migraine, unspecified, not intractable, without status migrainosus; Z87.891 Personal history of nicotine dependence; D73.1 Hypersplenism; D69.59 Other secondary thrombocytopenia; Z91.013 Allergy to seafood; K31.89 Other diseases of stomach and duodenum; K64.8 Other hemorrhoids; F41.9 Anxiety disorder, unspecified; Z51.5 Encounter for palliative care; F10.21 Alcohol dependence, in remission; Z80.51 Family history of malignant neoplasm of kidney; R19.5 Other fecal abnormalities; G47.33 Obstructive sleep apnea (adult) (pediatric); M54.5 Low back pain; G89.29 Other chronic pain; E11.65 Type 2 diabetes mellitus with hyperglycemia; K74.69 Other cirrhosis of liver
CPT/HCPCS: 37191; 71260; 74177; 74183; 76705; 80048; 80053; 81001; 82105; 82272; 82550; 82948; 83036; 83615; 83690; 83735; 84484; 85025; 85027; 85610; 85730; 87205; 87493; 88305; 93005; 94640; 94664; 96361; 96365; 96375; 99153; A9579; C1769; C1880; G0378; J1644; J2250; J2270; J2405; J2543; J3010; J7030; J7121; Q9967